=== PATIENT | male | born 1960 | race Caucasian/White ===

== ENCOUNTER 2022-02-21 18:18 | Inpatient (IN) | payer MEDICARE, MEDICAID ==
[~2022-02-21] VITALS: Ht 193 cm; Wt 116.0 kg
[2022-02-21 21:26] LABS: Eosinophils # (auto) 0 10 ^3/uL (0-0.8); Eosinophils % (auto) 0.3 % (0.0-7.0); Neutrophils # (auto) 11.5 10 ^3/uL (1.6-8.6)
[2022-02-21 21:27] LABS: Basophils # (auto) 0 10 ^3/uL (0-0.2); Basophils % (auto) 0.3 % (0.0-2.0); Hematocrit 39.1 % (41.0-53.0); Hemoglobin 12.7 g/dL (13.5-17.5); Lymphocytes # (auto) 0.8 10 ^3/uL (0.4-5.4); Lymphocytes % (auto) 6.3 % (10.0-50.0); Mean Corpuscular Hemoglobin 27.1 pg (28.0-32.0); Mean Corpuscular Hgb Conc. 32.4 g/dL (32.0-36.0); Mean Corpuscular Volume 83.5 fL (80.0-100.0); Monocytes % (auto) 7.1 % (0.0-12.0); Red Blood Cells 4.68 10^6/uL (4.5-5.90); Red Cell Distribution Width 15.6 % (11.8-14.3); White Blood Cell 13.4 10^3/uL (4.4-10.8)
[2022-02-21 21:41] LABS: Alanine Aminotransferase 56 U/L (16-61); Albumin 2.6 g/dL (3.4-5.0); Anion Gap 11 (5-15); Blood Urea Nitrogen 24 mg/dL (7-18); Calcium 8.7 mg/dL (8.5-10.1); Carbon Dioxide 20 mmol/L (21-32); Chloride 100 mmol/L (98-107); Glucose 79 mg/dL (74-106); Potassium 3.4 mmol/L (3.5-5.1); Sodium 131 mmol/L (136-145)
[2022-02-21 21:44] LABS: Alkaline Phosphatase 86 U/L (45-117); Aspartate Aminotransferase 112 U/L (15-37); Bilirubin, Total 0.5 mg/dL (0.2-1.0); GFR African American 52 mL/min; GFR Non-African American 43 mL/min; Total Protein 8.2 g/dL (6.4-8.2)
[2022-02-21 22:17] LABS: CRP High Sensitivity > 19 mg/dL (< 0.3)
[2022-02-22] MEDS ORDERED: HYDROmorphone HCL 2 MG/ML VL/or syr IV ONE (04:15)
[2022-02-22] MEDS ORDERED: ENOXAPARIN SOD 100 MG/1 ML SYRINGE SC SCH (05:00)
[2022-02-22] MEDS ORDERED: POTASSIUM CHL 20 Meq TABLET PO ONE (05:00)
[2022-02-22] MEDS ORDERED: ACETAMINOPHEN 325 MG TAB PO PRN (05:00)
[2022-02-22] MEDS ORDERED: ONDANSETRON HCL 4 MG/2 ML VIAL IV PRN (05:00)
[2022-02-22] MEDS ORDERED: HYDROcodone-ACET 5/325MG TAB PO PRN (05:00)
[2022-02-22] MEDS ORDERED: TEMAZEPAM 15 MG CAP PO PRN (05:00)
[2022-02-22] MEDS ORDERED: MORPHINE SULFATE INJ 2 MG/ml SYRG IV ONE (08:15)
[2022-02-22 08:24] LABS: Urine Bacteria FEW /hpf (None Seen); Urine Blood 3+ /uL (Negative); Urine Specific Gravity 1.011 (1.001-1.035); Urine WBC 4 /hpf (0 - 3)
[2022-02-22] MEDS: CLINDAMYCIN 600MG IV 50 ML IV SCH ×2 (10:55→18:46)
[2022-02-22] MEDS: cefTRIAXone 1GM/50ML D5W 50 ML IV SCH (13:10)
[2022-02-22 13:52] VITALS: BP 116/62
[2022-02-22] MEDS: HYDROcodone-ACET 10/325MG TAB PO PRN ×2 (14:05→21:08)
[2022-02-22] MEDS ORDERED: BICT1TAB PO (14:35)
[2022-02-22] MEDS ORDERED: RIVA20TA PO (14:35)
[2022-02-22] MEDS: HYDROmorphone HCL 2 MG/ML VL/or syr IV PRN (16:15)
[2022-02-22 16:59] VITALS: BP 102/58
[2022-02-22] MEDS: ENOXAPARIN SOD 120 MG/0.8 ML SYRINGE SC SCH (18:46)
[2022-02-22 22:00] VITALS: BP 101/52
[2022-02-23] MEDS: CLINDAMYCIN 600MG IV 50 ML IV SCH ×3 (01:50→17:33)
[2022-02-23 05:00] VITALS: BP_SYST 101; BP_SYST 114; BP_DIAS 50; BP_DIAS 69
[2022-02-23 05:19] LABS: Basophils # (auto) 0 10 ^3/uL (0-0.2); Basophils % (auto) 0.2 % (0.0-2.0); Eosinophils # (auto) 0 10 ^3/uL (0-0.8); Eosinophils % (auto) 0.3 % (0.0-7.0); Hematocrit 35.3 % (41.0-53.0); Hemoglobin 11.5 g/dL (13.5-17.5); Lymphocytes # (auto) 0.7 10 ^3/uL (0.4-5.4); Lymphocytes % (auto) 7.5 % (10.0-50.0); Mean Corpuscular Hemoglobin 27.3 pg (28.0-32.0); Mean Corpuscular Hgb Conc. 32.6 g/dL (32.0-36.0); Mean Corpuscular Volume 83.6 fL (80.0-100.0); Monocytes # (auto) 0.8 10 ^3/uL (0-1.3); Monocytes % (auto) 9.2 % (0.0-12.0); Neutrophils # (auto) 7.6 10 ^3/uL (1.6-8.6); Neutrophils % (auto) 82.8 % (37.0-80.0); Red Blood Cells 4.23 10^6/uL (4.5-5.90); Red Cell Distribution Width 15.7 % (11.8-14.3); White Blood Cell 9.1 10^3/uL (4.4-10.8)
[2022-02-23] MEDS: ENOXAPARIN SOD 120 MG/0.8 ML SYRINGE SC SCH ×2 (05:29→17:32)
[2022-02-23 05:46] LABS: Potassium 3.8 mmol/L (3.5-5.1)
[2022-02-23 05:51] LABS: Albumin 2.3 g/dL (3.4-5.0); BUN/Creatinine Ratio 14.8; Bilirubin, Total 0.5 mg/dL (0.2-1.0); Calcium 8.2 mg/dL (8.5-10.1); Total Protein 7.2 g/dL (6.4-8.2)
[2022-02-23] MEDS: HYDROcodone-ACET 10/325MG TAB PO PRN ×2 (08:31→16:14)
[2022-02-23] MEDS: cefTRIAXone 1GM/50ML D5W 50 ML IV SCH (08:31)
[2022-02-23 09:21] VITALS: BP 115/63
[2022-02-23 12:40] VITALS: BP 111/50
[2022-02-23 22:00] VITALS: BP 111/52
[2022-02-24] VITALS (7 sets, daily range): BP systolic 104–128; BP diastolic 59–77
[2022-02-24] MEDS: HYDROcodone-ACET 10/325MG TAB PO PRN ×2 (00:52→16:39)
[2022-02-24] MEDS: CLINDAMYCIN 600MG IV 50 ML IV SCH ×3 (04:21→18:37)
[2022-02-24] MEDS: ENOXAPARIN SOD 120 MG/0.8 ML SYRINGE SC SCH (04:48)
[2022-02-24] MEDS: HYDROmorphone HCL 2 MG/ML VL/or syr IV PRN ×3 (04:50→20:38)
[2022-02-24] MEDS: cefTRIAXone 1GM/50ML D5W 50 ML IV SCH (08:56)
[2022-02-24] MEDS: APIXABAN 5 MG TAB PO SCH (20:40)
[2022-02-25] MEDS: CLINDAMYCIN 600MG IV 50 ML IV SCH ×2 (01:29→10:54)
[2022-02-25] MEDS: HYDROcodone-ACET 10/325MG TAB PO PRN ×2 (01:51→16:38)
[2022-02-25] MEDS: HYDROmorphone HCL 2 MG/ML VL/or syr IV PRN ×3 (03:28→21:44)
[2022-02-25 05:00] VITALS: BP 110/53
[2022-02-25 08:00] VITALS: BP 128/86
[2022-02-25 09:00] VITALS: BP 124/67
[2022-02-25] MEDS: cefTRIAXone 1GM/50ML D5W 50 ML IV SCH (09:04)
[2022-02-25] MEDS: APIXABAN 5 MG TAB PO SCH ×2 (10:56→21:37)
[2022-02-25] MEDS ORDERED: VANCOMYCIN PER PHARMACY 0 MG IV SCH (11:15)
[2022-02-25 13:00] VITALS: BP_SYST 119; BP_SYST 123; BP_DIAS 61; BP_DIAS 73
[2022-02-25] MEDS: VANCOMYCIN 1GM/250ML 250 ML IV SCH ×2 (14:09→17:23)
[2022-02-25 17:00] VITALS: BP 106/57
[2022-02-25] MEDS ORDERED: VANCOMYCIN 1GM/250ML 250 ML IV ONE (17:32)
[2022-02-25 21:57] LABS: BUN/Creatinine Ratio 15.9; Calcium 8.3 mg/dL (8.5-10.1); Potassium 4.5 mmol/L (3.5-5.1)
[2022-02-25 22:00] VITALS: BP 114/57
[2022-02-26] MEDS: VANCOMYCIN 1GM/250ML 250 ML IV SCH ×3 (01:02→16:53)
[2022-02-26] MEDS: HYDROmorphone HCL 2 MG/ML VL/or syr IV PRN (04:45)
[2022-02-26 05:00] VITALS: BP 110/52
[2022-02-26 08:00] VITALS: BP 109/56
[2022-02-26 09:05] VITALS: BP 109/56
[2022-02-26] MEDS: HYDROcodone-ACET 10/325MG TAB PO PRN ×2 (09:59→20:23)
[2022-02-26] MEDS: APIXABAN 5 MG TAB PO SCH ×2 (10:00→21:20)
[2022-02-26] MEDS: CEFTRIAXONE SODIUM 2 GM in D5W 5% 50 ML IV SCH (11:37)
[2022-02-26 13:00] VITALS: BP 106/57
[2022-02-26 17:03] VITALS: BP 96/46
[2022-02-26 22:00] VITALS: BP 100/52
[2022-02-27] MEDS: VANCOMYCIN 1GM/250ML 250 ML IV SCH ×3 (02:28→22:43)
[2022-02-27] MEDS: HYDROcodone-ACET 10/325MG TAB PO PRN ×3 (03:31→16:34)
[2022-02-27 05:00] VITALS: BP 124/60
[2022-02-27 08:00] VITALS: BP 100/58
[2022-02-27 09:00] VITALS: BP 96/52
[2022-02-27] MEDS: APIXABAN 5 MG TAB PO SCH ×2 (09:14→21:19)
[2022-02-27] MEDS: CEFTRIAXONE SODIUM 2 GM in D5W 5% 50 ML IV SCH (09:15)
[2022-02-27 13:00] VITALS: BP 86/53
[2022-02-27 14:31] LABS: Albumin 1.9 g/dL (3.4-5.0); BUN/Creatinine Ratio 14.9; Calcium 8.6 mg/dL (8.5-10.1); Phosphorus 3.6 mg/dL (2.5-4.90); Potassium 4.6 mmol/L (3.5-5.1)
[2022-02-27 17:00] VITALS: BP 110/53
[2022-02-27 22:00] VITALS: BP 113/52
[2022-02-27] MEDS: HYDROmorphone HCL 2 MG/ML VL/or syr IV PRN (23:52)
[2022-02-28] MEDS: HYDROcodone-ACET 10/325MG TAB PO PRN ×2 (03:33→12:49)
[2022-02-28 05:00] VITALS: BP 105/52
[2022-02-28] MEDS: APIXABAN 5 MG TAB PO SCH ×2 (08:52→21:13)
[2022-02-28] MEDS: VANCOMYCIN 1GM/250ML 250 ML IV SCH ×2 (08:52→21:13)
[2022-02-28] MEDS: HYDROmorphone HCL 2 MG/ML VL/or syr IV PRN ×2 (08:53→19:55)
[2022-02-28 09:00] VITALS: BP 109/58
[2022-02-28] MEDS: CEFTRIAXONE SODIUM 2 GM in D5W 5% 50 ML IV SCH (10:04)
[2022-02-28 13:00] VITALS: BP 118/70
[2022-02-28 17:00] VITALS: BP 118/67
[2022-02-28 22:00] VITALS: BP 94/39
[2022-03-01 00:40] VITALS: BP 106/64
[2022-03-01] MEDS: HYDROcodone-ACET 10/325MG TAB PO PRN ×2 (00:46→19:35)
[2022-03-01 05:00] VITALS: BP 91/40
[2022-03-01 08:00] VITALS: BP 94/57
[2022-03-01] MEDS: APIXABAN 5 MG TAB PO SCH ×2 (09:17→21:34)
[2022-03-01] MEDS: VANCOMYCIN 1GM/250ML 250 ML IV SCH ×2 (09:17→21:34)
[2022-03-01] MEDS: HYDROmorphone HCL 2 MG/ML VL/or syr IV PRN ×2 (10:01→16:20)
[2022-03-01] MEDS ORDERED: FUROSEMIDE 40 MG/4 ML VIAL IV ONE (16:00)
[2022-03-01] MEDS ORDERED: POTASSIUM EFFERVESENT TAB 25 MEQ GT ONE (16:00)
[2022-03-01 17:00] VITALS: BP 110/59
[2022-03-01 22:00] VITALS: BP 115/59
[2022-03-02] MEDS: HYDROmorphone HCL 2 MG/ML VL/or syr IV PRN ×3 (03:13→20:21)
[2022-03-02 05:00] VITALS: BP_SYST 103; BP_DIAS 34; BP_DIAS 50
[2022-03-02] MEDS: HYDROcodone-ACET 10/325MG TAB PO PRN ×3 (05:27→23:57)
[2022-03-02 08:00] VITALS: BP 110/63
[2022-03-02] MEDS: VANCOMYCIN 1GM/250ML 250 ML IV SCH ×2 (08:36→20:21)
[2022-03-02] MEDS: APIXABAN 5 MG TAB PO SCH ×2 (08:37→21:51)
[2022-03-02 09:00] VITALS: BP 110/63
[2022-03-02] MEDS ORDERED: PENICILLIN V POTASSIUM 250 MG TAB PO SCH (12:00)
[2022-03-02 13:00] VITALS: BP 105/69
[2022-03-02] MEDS ORDERED: POTASSIUM CHL 20 Meq TABLET PO ONE (16:15)
[2022-03-02] MEDS ORDERED: FUROSEMIDE 40 MG/4 ML VIAL IV ONE (16:15)
[2022-03-02 17:00] VITALS: BP 113/61
[2022-03-02 22:00] VITALS: BP 123/66
[2022-03-03] MEDS: HYDROmorphone HCL 2 MG/ML VL/or syr IV PRN ×2 (03:40→12:09)
[2022-03-03 05:00] VITALS: BP 104/63
[2022-03-03] MEDS: HYDROcodone-ACET 10/325MG TAB PO PRN ×2 (08:22→18:21)
[2022-03-03 08:45] VITALS: BP 114/65
[2022-03-03] MEDS: VANCOMYCIN 1GM/250ML 250 ML IV SCH (09:02)
[2022-03-03 09:40] LABS: BUN/Creatinine Ratio 14.4; Calcium 8.6 mg/dL (8.5-10.1); Potassium 4.5 mmol/L (3.5-5.1)
[2022-03-03] MEDS: APIXABAN 5 MG TAB PO SCH (10:57)
[2022-03-03 12:55] VITALS: BP 110/62
[2022-03-03 16:30] VITALS: BP 108/64
[2022-03-03] MEDS ORDERED: APIXABAN 5 MG TAB PO SCH (22:00)
== END 2022-03-03 20:51 | DRG 299 ==
LOC: ER 18:18 → OVERFLOW 02-22 04:53 → WEST WING 02-22 13:31
PROVIDERS: ADMIT Nurse Practitioner; ATTEND Family Medicine
PROC: 05HF33Z Insertion of Infusion Device into Left Cephalic Vein, Percutaneous Approach (ICD-10-PCS; principal; 2022-03-03)
PROC: B54NZZA Ultrasonography of Left Upper Extremity Veins, Guidance (ICD-10-PCS; 2022-03-03)
DX: I82.402 Acute embolism and thrombosis of unspecified deep veins of left lower extremity (principal); E43 Unspecified severe protein-calorie malnutrition; N17.0 Acute kidney failure with tubular necrosis; L03.116 Cellulitis of left lower limb; E87.6 Hypokalemia; N18.9 Chronic kidney disease, unspecified; Z20.822 Contact with and (suspected) exposure to COVID-19; I12.9 Hypertensive chronic kidney disease with stage 1 through stage 4 chronic kidney disease, or unspecified chronic kidney disease; Z79.01 Long term (current) use of anticoagulants; Z68.31 Body mass index [BMI] 31.0-31.9, adult; Z21 Asymptomatic human immunodeficiency virus [HIV] infection status
CPT/HCPCS: 36415; 73610; 73700; 80048; 80053; 80069; 80202; 81001; 85025; 85652; 86141; 86360; 87040; 93971; 96372; 96374; 96375; G0378; J0696; J3490; J7060

== ENCOUNTER 2022-06-15 16:43 | Inpatient (IN) | payer MEDICARE, MEDICAID ==
[~2022-06-15] VITALS: Ht 193 cm; Wt 100.0 kg
[~2022-06-15 16:43] MED LIST: APIX5TAB PO; BICT1TAB PO; DOXY-340 PO; HYDR-4902 PO; RIVA20TA PO
[2022-06-15] MEDS ORDERED: levoFLOXacin 500MG 100 ML IV ONE (23:30)
[2022-06-16 00:08] LABS: Basophils # (auto) 0 10 ^3/uL (0-0.2)
[2022-06-16 00:10] LABS: Basophils % (auto) 0.4 % (0.0-2.0); Eosinophils # (auto) 0.3 10 ^3/uL (0-0.8); Eosinophils % (auto) 4.9 % (0.0-7.0); Hematocrit 35.6 % (41.0-53.0); Hemoglobin 11.7 g/dL (13.5-17.5); Lymphocytes # (auto) 0.9 10 ^3/uL (0.4-5.4); Lymphocytes % (auto) 17.3 % (10.0-50.0); Mean Corpuscular Hemoglobin 27.4 pg (28.0-32.0); Mean Corpuscular Hgb Conc. 32.9 g/dL (32.0-36.0); Mean Corpuscular Volume 83.1 fL (80.0-100.0); Monocytes # (auto) 0.5 10 ^3/uL (0-1.3); Monocytes % (auto) 9.3 % (0.0-12.0); Neutrophils # (auto) 3.5 10 ^3/uL (1.6-8.6); Neutrophils % (auto) 68.1 % (37.0-80.0); Red Blood Cells 4.28 10^6/uL (4.5-5.90); Red Cell Distribution Width 15.9 % (11.8-14.3); White Blood Cell 5.1 10^3/uL (4.4-10.8)
[2022-06-16 00:14] LABS: INR 1.07 (0.9-1.15); Partial Thromboplastin Time 29.2 sec (24.6-33.4)
[2022-06-16 00:17] LABS: Albumin 2.6 g/dL (3.4-5.0); BUN/Creatinine Ratio 12.7; Potassium 3.5 mmol/L (3.5-5.1)
[2022-06-16 00:20] LABS: Bilirubin, Total 0.3 mg/dL (0.2-1.0); Total Protein 8.1 g/dL (6.4-8.2)
[2022-06-16] MEDS ORDERED: ONDANSETRON HCL 4 MG/2 ML VIAL IV ONE (02:15)
[2022-06-16] MEDS ORDERED: MORPHINE SULFATE 4 MG/ML SYR/VIAL IV ONE ×2 (02:15→05:00)
[2022-06-16] MEDS ORDERED: ceFAZolin 1GM/50ML 50 ML IV ONE (05:00)
[2022-06-16] MEDS ORDERED: ACETAMINOPHEN 325 MG TAB PO PRN (06:00)
[2022-06-16] MEDS ORDERED: TEMAZEPAM 15 MG CAP PO PRN (06:00)
[2022-06-16] MEDS ORDERED: ONDANSETRON HCL 4 MG/2 ML VIAL IV PRN (06:00)
[2022-06-16] MEDS: CLINDAMYCIN 600MG IV 50 ML IV SCH ×3 (06:18→21:36)
[2022-06-16] MEDS ORDERED: EMTRICITABINE PO SCH (10:00)
[2022-06-16] MEDS ORDERED: BICTEGRAVIR PO SCH (10:00)
[2022-06-16] MEDS ORDERED: APIXABAN 2.5 MG TAB PO SCH (10:00)
[2022-06-16] MEDS: BIKTARVY 50-200-25 MG PO SCH (10:00)
[2022-06-16] MEDS ORDERED: TENOFOVIR ALAFENAMIDE PO SCH (10:00)
[2022-06-16] MEDS: cefTRIAXone 1GM/50ML D5W 50 ML IV SCH (11:29)
[2022-06-16] MEDS: PANTOPRAZOLE 40 MG TAB PO SCH (11:32)
[2022-06-16 17:00] VITALS: BP 104/62
[2022-06-16] MEDS: HYDROcodone-ACET 5/325MG TAB PO PRN ×2 (17:40→23:27)
[2022-06-16] MEDS ORDERED: INFLUENZA QUAD 2022-2023 0.5 ML SYRG IM ONE (18:45)
[2022-06-16 22:00] VITALS: BP 98/55
[2022-06-17 05:00] VITALS: BP 104/57
[2022-06-17] MEDS: CLINDAMYCIN 600MG IV 50 ML IV SCH ×2 (05:37→14:10)
[2022-06-17 06:08] LABS: Basophils # (auto) 0 10 ^3/uL (0-0.2); Basophils % (auto) 0.7 % (0.0-2.0); Eosinophils # (auto) 0.4 10 ^3/uL (0-0.8); Eosinophils % (auto) 8.2 % (0.0-7.0); Hematocrit 34.9 % (41.0-53.0); Hemoglobin 11.3 g/dL (13.5-17.5); Lymphocytes # (auto) 0.5 10 ^3/uL (0.4-5.4); Lymphocytes % (auto) 10.8 % (10.0-50.0); Mean Corpuscular Hgb Conc. 32.4 g/dL (32.0-36.0); Mean Corpuscular Volume 83.4 fL (80.0-100.0); Monocytes # (auto) 0.5 10 ^3/uL (0-1.3); Monocytes % (auto) 10.6 % (0.0-12.0); Neutrophils # (auto) 3.5 10 ^3/uL (1.6-8.6); Neutrophils % (auto) 69.7 % (37.0-80.0); Nucleated Red Blood Cells % 0.2 %; Red Blood Cells 4.18 10^6/uL (4.5-5.90); Red Cell Distribution Width 16.3 % (11.8-14.3); White Blood Cell 5.1 10^3/uL (4.4-10.8)
[2022-06-17 06:35] LABS: BUN/Creatinine Ratio 9.5; Calcium 8.1 mg/dL (8.5-10.1); Potassium 4.8 mmol/L (3.5-5.1)
[2022-06-17 08:00] VITALS: BP 103/52
[2022-06-17] MEDS: BIKTARVY 50-200-25 MG PO SCH (10:00)
[2022-06-17] MEDS: cefTRIAXone 1GM/50ML D5W 50 ML IV SCH (10:16)
[2022-06-17] MEDS: PANTOPRAZOLE 40 MG TAB PO SCH (10:16)
[2022-06-17] MEDS: HYDROcodone-ACET 5/325MG TAB PO PRN ×2 (10:25→19:17)
[2022-06-17] MEDS ORDERED: APIXABAN 2.5 MG TAB PO SCH (14:30)
[2022-06-17 16:00] VITALS: BP 98/55
[2022-06-17 22:00] VITALS: BP 103/59
[2022-06-18] MEDS: HYDROcodone-ACET 5/325MG TAB PO PRN ×2 (04:36→10:12)
[2022-06-18 05:00] VITALS: BP 114/57
[2022-06-18 08:59] VITALS: BP 90/53
[2022-06-18] MEDS: ENOXAPARIN SOD 40 MG/0.4 ML SYRINGE SC SCH (09:53)
[2022-06-18] MEDS: cefTRIAXone 1GM/50ML D5W 50 ML IV SCH (09:53)
[2022-06-18] MEDS: PANTOPRAZOLE 40 MG TAB PO SCH (09:54)
[2022-06-18] MEDS: BIKTARVY 50-200-25 MG PO SCH (09:56)
[2022-06-18 13:00] VITALS: BP 120/65
[2022-06-18 16:57] VITALS: BP 119/62
[2022-06-19] MEDS: cefTRIAXone 1GM/50ML D5W 50 ML IV SCH (08:47)
[2022-06-19] MEDS: PANTOPRAZOLE 40 MG TAB PO SCH (08:48)
[2022-06-19] MEDS: HYDROcodone-ACET 5/325MG TAB PO PRN ×2 (08:48→16:49)
[2022-06-19] MEDS: ENOXAPARIN SOD 40 MG/0.4 ML SYRINGE SC SCH (08:48)
[2022-06-19] MEDS: BIKTARVY 50-200-25 MG PO SCH (08:54)
[2022-06-19 09:00] VITALS: BP 101/59
[2022-06-19 13:00] VITALS: BP 96/52
[2022-06-19 17:00] VITALS: BP 101/66
[2022-06-19 22:00] VITALS: BP 93/63
[2022-06-20 05:00] VITALS: BP 116/62
[2022-06-20 08:49] LABS: Red Cell Distribution Width 15.9 % (11.8-14.3)
[2022-06-20 08:51] LABS: Hematocrit 39.8 % (41.0-53.0); Hemoglobin 12.8 g/dL (13.5-17.5); Mean Corpuscular Hemoglobin 26.7 pg (28.0-32.0); Mean Corpuscular Hgb Conc. 32.1 g/dL (32.0-36.0); Mean Corpuscular Volume 83.2 fL (80.0-100.0); Red Blood Cells 4.78 10^6/uL (4.5-5.90)
[2022-06-20 08:56] LABS: Band Neutrophils % (manual) 0; Basophils % (manual) 0 (0.0-2.0); Blast Cells 0; Metamyelocytes % 0; Myelocytes % 0; Promyelocytes % 0; Reactive Lymphocytes 0
[2022-06-20 09:00] VITALS: BP 109/51
[2022-06-20 09:11] LABS: Eosinophils % (manual) 17 (0-7); Lymphocytes % (manual) 25 (10.0-50.0); Monocytes % (manual) 5 (0-12)
[2022-06-20] MEDS: BIKTARVY 50-200-25 MG PO SCH (09:22)
[2022-06-20] MEDS: cefTRIAXone 1GM/50ML D5W 50 ML IV SCH (09:22)
[2022-06-20] MEDS: PANTOPRAZOLE 40 MG TAB PO SCH (09:23)
[2022-06-20] MEDS: ENOXAPARIN SOD 40 MG/0.4 ML SYRINGE SC SCH (09:23)
[2022-06-20] MEDS: ceFAZolin 1GM/50ML 50 ML IV SCH ×2 (14:38→21:28)
[2022-06-20 17:00] VITALS: BP 104/58
[2022-06-20 22:00] VITALS: BP 102/61
[2022-06-20] MEDS ORDERED: diphenhdrAMINE HCL 25 MG CAP PO ONE (22:15)
[2022-06-21 05:00] VITALS: BP 96/67
[2022-06-21] MEDS: ceFAZolin 1GM/50ML 50 ML IV SCH ×2 (05:06→14:00)
[2022-06-21 06:41] LABS: Hematocrit 42.1 % (41.0-53.0); Mean Corpuscular Hemoglobin 27.4 pg (28.0-32.0); Mean Corpuscular Hgb Conc. 30.9 g/dL (32.0-36.0); Mean Corpuscular Volume 88.7 fL (80.0-100.0); Red Blood Cells 4.74 10^6/uL (4.5-5.90); Red Cell Distribution Width 15.6 % (11.8-14.3); White Blood Cell 4.3 10^3/uL (4.4-10.8)
[2022-06-21 07:09] LABS: Basophils % (manual) 0 (0.0-2.0); Blast Cells 0; Metamyelocytes % 0; Myelocytes % 0; Promyelocytes % 0; Reactive Lymphocytes 0
[2022-06-21 08:49] VITALS: BP 93/57
[2022-06-21 09:52] LABS: Band Neutrophils % (manual) 12; Eosinophils % (manual) 23 (0-7); Lymphocytes % (manual) 18 (10.0-50.0); Monocytes % (manual) 8 (0-12)
[2022-06-21] MEDS: BIKTARVY 50-200-25 MG PO SCH (10:00)
[2022-06-21] MEDS: PANTOPRAZOLE 40 MG TAB PO SCH (10:30)
[2022-06-21] MEDS: ENOXAPARIN SOD 40 MG/0.4 ML SYRINGE SC SCH (10:30)
[2022-06-21] MEDS ORDERED: CEPH500C PO (12:05)
[2022-06-21] MEDS ORDERED: [UNRECOGNIZED DRUG - CODE] EX (12:14)
[2022-06-21 13:00] VITALS: BP 95/48
== END 2022-06-21 16:32 | disposition home or self-care (01) | DRG 603 ==
LOC: ER 16:43 → OVERFLOW 06-16 06:06 → CENTRAL 06-16 15:43
PROVIDERS: ADMIT Nurse Practitioner; ATTEND Student in an Organized Health Care Education/Training Program
DX: L03.116 Cellulitis of left lower limb (principal); B20 Human immunodeficiency virus [HIV] disease; N18.4 Chronic kidney disease, stage 4 (severe); Z20.822 Contact with and (suspected) exposure to COVID-19; I87.8 Other specified disorders of veins; Z63.8 Other specified problems related to primary support group; Z86.718 Personal history of other venous thrombosis and embolism
CPT/HCPCS: 36415; 71045; 80048; 80053; 85007; 85025; 85027; 85610; 85730; 87040; 87426; 87493; 93005; 93971; 96365; 96367; 96375; 96376; G0378; J0690; J0696; J1956; J2405; J3490

== ENCOUNTER 2024-02-28 21:24 | Inpatient (IN) | payer OTHER, MEDICAID ==
[~2024-02-28] VITALS: Ht 193 cm; Wt 94.0 kg
[~2024-02-28 21:24] MED LIST changes: +CEPH500C PO; -DOXY-340 PO; -RIVA20TA PO; +[UNRECOGNIZED DRUG - CODE] EX
[2024-02-28 22:04] LABS: Basophils # (auto) 0 10 ^3/uL (0-0.2); Basophils % (auto) 1.1 % (0.0-2.0); Eosinophils # (auto) 0.3 10 ^3/uL (0-0.8); Eosinophils % (auto) 10.8 % (0.0-7.0); Hematocrit 32.2 % (41.0-53.0); Hemoglobin 10.7 g/dL (13.5-17.5); Lymphocytes # (auto) 0.4 10 ^3/uL (0.4-5.4); Mean Corpuscular Hemoglobin 27.8 pg (28.0-32.0); Mean Corpuscular Hgb Conc. 33.2 g/dL (32.0-36.0); Mean Corpuscular Volume 83.6 fL (80.0-100.0); Monocytes # (auto) 0.4 10 ^3/uL (0-1.3); Monocytes % (auto) 14.5 % (0.0-12.0); Neutrophils # (auto) 1.7 10 ^3/uL (1.6-8.6); Neutrophils % (auto) 58.6 % (37.0-80.0); Nucleated Red Blood Cells % 0.1 %; Red Blood Cells 3.86 10^6/uL (4.5-5.90); Red Cell Distribution Width 16.6 % (11.8-14.3); White Blood Cell 2.9 10^3/uL (4.4-10.8)
[2024-02-28 22:22] LABS: Alanine Aminotransferase 31 U/L (7-40); Albumin 3.2 g/dL (3.2-4.8); Alkaline Phosphatase 85 U/L (46-116); Anion Gap 11 (5-15); Aspartate Aminotransferase 41 U/L (13-40); BUN/Creatinine Ratio 10.8 (10.0-20.0); Blood Urea Nitrogen 15 mg/dL (9-23); Calcium 8.8 mg/dL (8.7-10.4); Carbon Dioxide 20 mmol/L (20-30); Chloride 102 mmol/L (98-107); Glucose 117 mg/dL (74-106); Potassium 3.7 mmol/L (3.5-5.1); Sodium 133 mmol/L (136-145)
[2024-02-28 22:23] LABS: Bilirubin, Total 0.6 mg/dL (0.2-1.0); Total Protein 9.4 g/dL (5.7-8.2)
[2024-02-28] MEDS: SODIUM CHLORIDE 0.9% 1,000 ML IV ONE (23:09)
[2024-02-28 23:30] VITALS: PULSE 100; RESP 24; O2SAT 99
[2024-02-29] MEDS: KETOROLAC TROMETH 30 MG/ML 1ML VIAL IV ONE (03:32)
[2024-02-29] MEDS ORDERED: ONDANSETRON HCL 4 MG/2 ML VIAL IV PRN (03:45)
[2024-02-29] MEDS ORDERED: ACETAMINOPHEN 325 MG TAB PO PRN (03:45)
[2024-02-29] MEDS ORDERED: DOCUSATE SOD 100 MG CAP PO PRN (03:45)
[2024-02-29] MEDS ORDERED: NITROGLYCERIN 0.4 MG SL TAB SL PRN (03:45)
[2024-02-29] MEDS ORDERED: MORPHINE SULFATE INJ 2 MG/ml SYRG IV PRN (03:45)
[2024-02-29] MEDS: HYDROcodone-ACET 5/325MG TAB PO PRN (03:51)
[2024-02-29] MEDS: SODIUM CHLORIDE 0.9% 1,000 ML IV SCH (03:52)
[2024-02-29 04:31] LABS: Chloride 105 mmol/L (98-107); Potassium 3.7 mmol/L (3.5-5.1); Sodium 135 mmol/L (136-145)
[2024-02-29 04:32] LABS: Anion Gap 7 (5-15); Calcium 8.3 mg/dL (8.7-10.4); Carbon Dioxide 23 mmol/L (20-30)
[2024-02-29 04:37] LABS: BUN/Creatinine Ratio 11.3 (10.0-20.0); Blood Urea Nitrogen 14 mg/dL (9-23); Glucose 98 mg/dL (74-106)
[2024-02-29 04:41] LABS: Hematocrit 29.1 % (41.0-53.0); Hemoglobin 9.6 g/dL (13.5-17.5); Mean Corpuscular Hemoglobin 27.9 pg (28.0-32.0); Mean Corpuscular Volume 84.5 fL (80.0-100.0); Red Blood Cells 3.44 10^6/uL (4.5-5.90); Red Cell Distribution Width 16.6 % (11.8-14.3); White Blood Cell 3.5 10^3/uL (4.4-10.8)
[2024-02-29 04:43] LABS: Basophils % (manual) 0 (0.0-2.0); Blast Cells 0; Metamyelocytes % 0; Myelocytes % 0; Promyelocytes % 0; Reactive Lymphocytes 0
[2024-02-29 07:30] VITALS: PULSE 95; RESP 21; O2SAT 98
[2024-02-29 07:46] LABS: Band Neutrophils % (manual) 1; Eosinophils % (manual) 4 (0-7); Lymphocytes % (manual) 8 (10.0-50.0); Monocytes % (manual) 7 (0-12)
[2024-02-29 07:47] LABS: Large Platelets FEW; Platelet Estimate Decrea
[2024-02-29 16:44] VITALS: BP 106/74; PULSE 91; RESP 17; TEMP 97.7; O2SAT 100
[2024-02-29 16:46] VITALS: PULSE 91; RESP 18
[2024-02-29 20:00] VITALS: PULSE 100; PULSE 80; RESP 18; O2SAT 99
[2024-02-29 21:00] VITALS: BP 102/64; PULSE 80; RESP 18; TEMP 97.5; O2SAT 99
[2024-03-01] VITALS (9 sets, daily range): BP systolic 106–128; BP diastolic 68–86; PULSE 70–99; RESP 15–22; TEMP 97.2–98.1; O2SAT 93–100
[2024-03-01 06:48] LABS: Anion Gap 8 (5-15); Calcium 8.6 mg/dL (8.7-10.4); Carbon Dioxide 20 mmol/L (20-30); Chloride 108 mmol/L (98-107); Sodium 136 mmol/L (136-145)
[2024-03-01 06:54] LABS: BUN/Creatinine Ratio 9.6 (10.0-20.0); Blood Urea Nitrogen 10 mg/dL (9-23); Glucose 102 mg/dL (74-106); Mean Corpuscular Hemoglobin 34.9 pg (28.0-32.0); Red Cell Distribution Width 17.4 % (11.8-14.3)
[2024-03-01 06:56] LABS: Hematocrit 31.4 % (41.0-53.0); Mean Corpuscular Hgb Conc. 35.1 g/dL (32.0-36.0); Mean Corpuscular Volume 99.3 fL (80.0-100.0); Red Blood Cells 3.16 10^6/uL (4.5-5.90); White Blood Cell 3.2 10^3/uL (4.4-10.8)
[2024-03-01 07:05] LABS: Basophils % (manual) 0 (0.0-2.0); Blast Cells 0; Metamyelocytes % 0; Myelocytes % 0; Promyelocytes % 0; Reactive Lymphocytes 0
[2024-03-01 08:25] LABS: Band Neutrophils % (manual) 2; Eosinophils % (manual) 19 (0-7); Lymphocytes % (manual) 12 (10.0-50.0); Monocytes % (manual) 7 (0-12); Platelet Estimate Decreased
[2024-03-01] MEDS: cefTRIAXone 1GM/50ML D5W 50 ML IV SCH (14:51)
[2024-03-01 16:40] LABS: Amphetamine Screen, Urine Pos (NEGATIVE); Barbiturate Scree,Urine Neg (NEGATIVE); Benzodiazephine Screen, Urine Neg (NEGATIVE); Cannabinoid Screen, Urine Neg (NEGATIVE); Cocaine Screen, Urine Neg (NEGATIVE); Opiate Scree,Urine Neg (NEGATIVE); Phencyclidine Screen, Urine Neg (NEGATIVE)
[2024-03-01 16:45] LABS: INR 1.13 (0.9-1.15); Prothrombin Time 11.9 sec (9.3-11.8)
[2024-03-01 16:56] LABS: Urine Bacteria FEW /hpf (None Seen); Urine Blood 2+ /uL (Negative); Urine Clarity Turbid (Clear); Urine Color Yellow (Yellow); Urine Protein, UAD TRACE (Negative); Urine Specific Gravity 1.013 (1.001-1.035); Urine Urobilinogen 2 mg/dL (Negative); Urine WBC 230 /hpf (0 - 3)
[2024-03-02] VITALS (8 sets, daily range): BP systolic 118–134; BP diastolic 73–89; PULSE 76–92; RESP 17–22; TEMP 97.4–98; O2SAT 94–100
[2024-03-02 07:47] LABS: Anion Gap 6 (5-15); Carbon Dioxide 25 mmol/L (20-30); Chloride 106 mmol/L (98-107); Potassium 4.2 mmol/L (3.5-5.1); Sodium 137 mmol/L (136-145)
[2024-03-02 07:48] LABS: Calcium 8.6 mg/dL (8.7-10.4)
[2024-03-02 07:53] LABS: BUN/Creatinine Ratio 7.3 (10.0-20.0); Blood Urea Nitrogen 7 mg/dL (9-23); Glucose 85 mg/dL (74-106)
[2024-03-02 07:54] LABS: Magnesium 1.7 mg/dL (1.6-2.6)
[2024-03-02 08:07] LABS: Hemoglobin 10.2 g/dL (13.5-17.5); Mean Corpuscular Hemoglobin 28.6 pg (28.0-32.0); Mean Corpuscular Volume 84.3 fL (80.0-100.0); Red Blood Cells 3.56 10^6/uL (4.5-5.90); Red Cell Distribution Width 16.8 % (11.8-14.3); White Blood Cell 3.5 10^3/uL (4.4-10.8)
[2024-03-02 08:11] LABS: Basophils % (manual) 0 (0.0-2.0); Blast Cells 0; Metamyelocytes % 0; Myelocytes % 0; Promyelocytes % 0; Reactive Lymphocytes 0
[2024-03-02] MEDS: PANTOPRAZOLE 40 MG/10 ML VIAL INJ IV SCH (10:00)
[2024-03-02 10:41] LABS: Band Neutrophils % (manual) 2; Eosinophils % (manual) 10 (0-7); Lymphocytes % (manual) 8 (10.0-50.0); Monocytes % (manual) 6 (0-12); Platelet Estimate Decreased
[2024-03-02] MEDS ORDERED: LIDOCAINE 1% INJ PF 5ML AMP ONE (12:17)
[2024-03-02] MEDS ORDERED: PROPOFOL 10 MG/ML 20 ML IV ONE ×2 (12:17→12:34)
[2024-03-02] MEDS ORDERED: EPINEPHrine HCL 1 MG/10 ML SYRG ONE (12:20)
[2024-03-02] MEDS ORDERED: ONDANSETRON HCL 4 MG/2 ML VIAL IV ONE (12:45)
[2024-03-02] MEDS ORDERED: HYDROmorphone HCL 2 MG/ML VL/or syr IV PRN (12:45)
[2024-03-03 01:00] VITALS: BP 125/77; PULSE 85; RESP 18; TEMP 97.6; O2SAT 95
[2024-03-03 05:00] VITALS: BP 100/59; PULSE 102; RESP 19; TEMP 98; O2SAT 95
[2024-03-03 08:10] VITALS: PULSE 84
[2024-03-03 08:53] LABS: Basophils # (auto) 0 10 ^3/uL (0-0.2); Basophils % (auto) 0.8 % (0.0-2.0); Eosinophils # (auto) 0.3 10 ^3/uL (0-0.8); Eosinophils % (auto) 10.9 % (0.0-7.0); Hematocrit 31.2 % (41.0-53.0); Hemoglobin 10.1 g/dL (13.5-17.5); Lymphocytes # (auto) 0.3 10 ^3/uL (0.4-5.4); Lymphocytes % (auto) 14.7 % (10.0-50.0); Mean Corpuscular Hemoglobin 28.2 pg (28.0-32.0); Mean Corpuscular Hgb Conc. 32.4 g/dL (32.0-36.0); Monocytes # (auto) 0.2 10 ^3/uL (0-1.3); Monocytes % (auto) 9.6 % (0.0-12.0); Neutrophils # (auto) 1.5 10 ^3/uL (1.6-8.6); Nucleated Red Blood Cells % 0.2 %; Red Blood Cells 3.59 10^6/uL (4.5-5.90); Red Cell Distribution Width 17.2 % (11.8-14.3); White Blood Cell 2.3 10^3/uL (4.4-10.8)
[2024-03-03 09:00] VITALS: BP 120/65; PULSE 90; RESP 20; TEMP 97.7; O2SAT 95
[2024-03-03 09:09] LABS: Chloride 109 mmol/L (98-107); Potassium 3.8 mmol/L (3.5-5.1); Sodium 137 mmol/L (136-145)
[2024-03-03 09:10] LABS: Anion Gap 6 (5-15); Carbon Dioxide 22 mmol/L (20-30)
[2024-03-03 09:11] LABS: Calcium 8.2 mg/dL (8.7-10.4)
[2024-03-03 09:15] LABS: BUN/Creatinine Ratio 5.3 (10.0-20.0); Blood Urea Nitrogen 5 mg/dL (9-23); Glucose 90 mg/dL (74-106)
[2024-03-03 13:00] VITALS: BP 105/60; PULSE 92; RESP 20; TEMP 97.9; O2SAT 98
== END 2024-03-03 17:15 | DRG 391 ==
LOC: EDBD 21:24 → EDUNIT# 21:24 → ER 21:24 → TELE 02-29 03:41 → TELE-EAST 02-29 16:27
PROVIDERS: ADMIT Nurse Practitioner Family; ATTEND Internal Medicine
PROC: 0DB68ZX Excision of Stomach, Via Natural or Artificial Opening Endoscopic, Diagnostic (ICD-10-PCS; 2024-03-02)
PROC: 0DB98ZX Excision of Duodenum, Via Natural or Artificial Opening Endoscopic, Diagnostic (ICD-10-PCS; principal; 2024-03-02 12:18)
DX: K29.70 Gastritis, unspecified, without bleeding (principal); N17.0 Acute kidney failure with tubular necrosis; K92.1 Melena; D61.818 Other pancytopenia; E86.0 Dehydration; K57.10 Diverticulosis of small intestine without perforation or abscess without bleeding; R59.1 Generalized enlarged lymph nodes; K22.2 Esophageal obstruction; R55 Syncope and collapse
CPT/HCPCS: 36415; 70450; 70551; 71045; 72128; 76705; 80048; 80053; 80307; 81001; 82270; 83735; 84484; 85007; 85025; 85027; 85610; 86850; 86900; 86901; 93005; 93306; 97110; 97116; 97163; 97530; G0378; J1885; J2470; J2704

== ENCOUNTER 2024-03-27 06:57 | Inpatient (IN) | payer OTHER, MEDICAID ==
[~2024-03-27] VITALS: Ht 193 cm; Wt 92.3 kg
[~2024-03-27 06:57] MED LIST changes: -APIX5TAB PO; -CEPH500C PO; -HYDR-4902 PO; -[UNRECOGNIZED DRUG - CODE] EX
[2024-03-27 07:30] VITALS: BP 103/62; PULSE 87; RESP 19; TEMP 98.3; O2SAT 97
[2024-03-27] MEDS ORDERED: INFLUENZA QUAD 2023-2024 0.5 ML SYRG IM ONE (08:00)
[2024-03-27] MEDS ORDERED: PNEUMOCOCCAL VACC POLYS 25 MCG/0.5 ML VIAL IM ONE (08:00)
[2024-03-27] MEDS ORDERED: PANT40T PO (08:01)
[2024-03-27] MEDS ORDERED: POLY335015 PO (08:01)
[2024-03-27] MEDS ORDERED: HYD1TP TOP (08:01)
[2024-03-27] MEDS ORDERED: DOXY100T2 PO (08:01)
[2024-03-27] MEDS ORDERED: BICT1TAB PO (08:01)
[2024-03-27] MEDS ORDERED: HYDR1TAB97 PO (08:03)
[2024-03-27] MEDS ORDERED: HYDR-4902 PO (08:03)
[2024-03-27 09:00] VITALS: BP 103/62; PULSE 87; RESP 19; TEMP 98.3; O2SAT 97
[2024-03-27 12:58] VITALS: BP 115/71; PULSE 87; RESP 19; TEMP 98.4; O2SAT 99
[2024-03-27] MEDS ORDERED: MORPHINE SULFATE INJ 2 MG/ml SYRG IV PRN ×2 (16:15)
[2024-03-27] MEDS ORDERED: NITROGLYCERIN 0.4 MG SL TAB SL PRN (16:15)
[2024-03-27] MEDS ORDERED: ONDANSETRON HCL 4 MG/2 ML VIAL IV PRN (16:15)
[2024-03-27 16:56] VITALS: BP 107/71; PULSE 89; RESP 16; TEMP 97.9; O2SAT 98
[2024-03-27] MEDS: SODIUM CHLORIDE 0.9% 1,000 ML IV SCH (17:56)
[2024-03-27 20:00] VITALS: PULSE 95; RESP 18; O2SAT 98
[2024-03-28] VITALS (7 sets, daily range): BP systolic 98–122; BP diastolic 62–81; PULSE 75–88; RESP 17–22; TEMP 97.4–98.4; O2SAT 98–99
[2024-03-28 16:09] LABS: Mean Corpuscular Hemoglobin 30.3 pg (28.0-32.0); Mean Corpuscular Hgb Conc. 33.3 g/dL (32.0-36.0); Mean Corpuscular Volume 90.8 fL (80.0-100.0); Red Blood Cells 2.97 10^6/uL (4.5-5.90); Red Cell Distribution Width 20.3 % (11.8-14.3)
[2024-03-28 16:12] LABS: White Blood Cell 1.9 10^3/uL (4.4-10.8)
[2024-03-28 16:13] LABS: Band Neutrophils % (manual) 0; Basophils % (manual) 0 (0.0-2.0); Blast Cells 0; Metamyelocytes % 0; Myelocytes % 0; Promyelocytes % 0; Reactive Lymphocytes 0
[2024-03-28 16:27] LABS: Chloride 109 mmol/L (98-107); Sodium 138 mmol/L (136-145)
[2024-03-28 16:28] LABS: Anion Gap 6 (5-15); Carbon Dioxide 23 mmol/L (20-30)
[2024-03-28 16:29] LABS: Calcium 8.2 mg/dL (8.7-10.4)
[2024-03-28 16:33] LABS: BUN/Creatinine Ratio 10.9 (10.0-20.0); Blood Urea Nitrogen 11 mg/dL (9-23); Glucose 92 mg/dL (74-106)
[2024-03-28 16:55] LABS: Platelet Count (auto) 102 10^3/uL (140-450)
[2024-03-28 16:56] LABS: Anisocytosis Slight; Eosinophils % (manual) 7 (0-7); Large Platelets FEW; Lymphocytes % (manual) 34 (10.0-50.0); Monocytes % (manual) 12 (0-12); Platelet Estimate Decreased
[2024-03-29] VITALS (8 sets, daily range): BP systolic 120–134; BP diastolic 60–83; PULSE 70–90; RESP 12–22; TEMP 97.4–98.9; O2SAT 95–99
[2024-03-29 09:35] LABS: Hemoglobin 8.9 g/dL (13.5-17.5)
[2024-03-29 09:37] LABS: Hematocrit 26.6 % (41.0-53.0); Mean Corpuscular Hgb Conc. 33.5 g/dL (32.0-36.0); Mean Corpuscular Volume 92.6 fL (80.0-100.0); Platelet Count (auto) 102 10^3/uL (140-450); Red Blood Cells 2.87 10^6/uL (4.5-5.90); Red Cell Distribution Width 19.1 % (11.8-14.3)
[2024-03-29 09:53] LABS: Chloride 109 mmol/L (98-107); Potassium 3.4 mmol/L (3.5-5.1); Sodium 137 mmol/L (136-145)
[2024-03-29 09:54] LABS: Anion Gap 2 (5-15); Calcium 8.4 mg/dL (8.7-10.4); Carbon Dioxide 26 mmol/L (20-30)
[2024-03-29 09:59] LABS: BUN/Creatinine Ratio 8.1 (10.0-20.0); Blood Urea Nitrogen 8 mg/dL (9-23); Glucose 90 mg/dL (74-106)
[2024-03-29 10:00] LABS: Magnesium 1.5 mg/dL (1.6-2.6)
[2024-03-29 10:19] LABS: White Blood Cell 1.7 10^3/uL (4.4-10.8)
[2024-03-29 10:21] LABS: Band Neutrophils % (manual) 0; Basophils % (manual) 0 (0.0-2.0); Myelocytes % 0; Promyelocytes % 0; Reactive Lymphocytes 0
[2024-03-29 12:23] LABS: Blast Cells 2; Eosinophils % (manual) 14 (0-7); Lymphocytes % (manual) 30 (10.0-50.0); Metamyelocytes % 2; Monocytes % (manual) 12 (0-12)
[2024-03-29 12:24] LABS: Platelet Estimate Decreased
[2024-03-29] MEDS ORDERED: EZ PAQUE SUSP 12OZ BTL ONE (13:17)
[2024-03-29] MEDS ORDERED: EZ-GAS II GRANULES (RADIOLOGY USE) PO ONE (13:18)
[2024-03-29] MEDS ORDERED: BARIUM SULFATE 98% 340 GM PWDR ONE (13:18)
[2024-03-29] MEDS ORDERED: GASTROGRAFIN 120 ML SOL ONE (13:19)
[2024-03-29 15:41] LABS: INR 1.16 (0.9-1.15); Partial Thromboplastin Time 29.6 SEC (24.5-34.5); Prothrombin Time 12.2 sec (9.3-11.8)
[2024-03-29 15:52] LABS: Albumin 3.2 g/dL (3.2-4.8); Bilirubin, Direct 0.2 mg/dL (<0.3); Bilirubin, Total 0.4 mg/dL (0.2-1.0); Total Protein 9.7 g/dL (5.7-8.2)
[2024-03-29] MEDS: POTASSIUM CHL 20 Meq TABLET PO ONE (21:53)
[2024-03-29 22:04] LABS: Urine Bacteria None Seen /hpf (None Seen)
[2024-03-29 22:07] LABS: Urine Blood Negative /uL (Negative); Urine Clarity Clear (Clear); Urine Color Light-Yellow (Yellow); Urine Protein, UAD Negative (Negative); Urine Specific Gravity 1.018 (1.001-1.035); Urine Urobilinogen Normal (Negative); Urine WBC 1 /hpf (0 - 3)
[2024-03-30] VITALS (7 sets, daily range): BP systolic 93–143; BP diastolic 55–80; PULSE 77–98; RESP 16–20; TEMP 97.4–98.6; O2SAT 90–98
[2024-03-30 10:07] LABS: % CD 4 Pos Lymph 4.4 % (30.8-58.5); % CD 8 Pos Lymph 39.4 % (12.0-35.5); CD4/CD8 Ratio 0.11 (0.92-3.72)
[2024-03-30 11:07] LABS: Absolute CD 4 Helper 18 /uL (359-1519); Basos 1 % (Not Estab.); Eos 15 % (Not Estab.); Eos (Absolute) 0.3 x10E3/uL (0.0-0.4); Hematocrit 26.9 % (37.5-51.0); Hematology Comments: Note: (.); Hemoglobin 8.4 g/dL (13.0-17.7); Immature Cells Note (.); Lymphs 21 % (Not Estab.); Lymphs (Absolute) 0.4 x10E3/uL (0.7-3.1); MCH 27.9 pg (26.6-33.0); MCHC 31.2 g/dL (31.5-35.7); MCV 89 fL (79-97); Monocytes 14 % (Not Estab.); Monocytes (Absolute) 0.3 x10E3/uL (0.1-0.9); Neutrophils 47 % (Not Estab.); RBC 3.01 x10E6/uL (4.14-5.80); WBC 2.1 x10E3/uL (3.4-10.8)
[2024-03-30] MEDS: LORazepam 0.5 MG TAB PO PRN (13:40)
[2024-03-30] MEDS: CHOLESTYRAMINE 4 GM POWDER PO ONE (13:52)
[2024-03-30] MEDS: DIPHENOXYLATE W/ATROPINE 2.5 MG TAB PO ONE (13:52)
[2024-03-30 14:22] LABS: Basophils # (auto) 0 10 ^3/uL (0-0.2); Basophils % (auto) 0.4 % (0.0-2.0); Eosinophils # (auto) 0.2 10 ^3/uL (0-0.8); Eosinophils % (auto) 4.7 % (0.0-7.0); Hematocrit 29.9 % (41.0-53.0); Lymphocytes # (auto) 0.5 10 ^3/uL (0.4-5.4); Lymphocytes % (auto) 13.8 % (10.0-50.0); Mean Corpuscular Hemoglobin 30.1 pg (28.0-32.0); Mean Corpuscular Hgb Conc. 33.5 g/dL (32.0-36.0); Mean Corpuscular Volume 89.7 fL (80.0-100.0); Monocytes # (auto) 0.4 10 ^3/uL (0-1.3); Monocytes % (auto) 10.3 % (0.0-12.0); Neutrophils # (auto) 2.5 10 ^3/uL (1.6-8.6); Neutrophils % (auto) 70.8 % (37.0-80.0); Platelet Count (auto) 111 10^3/uL (140-450); Red Blood Cells 3.33 10^6/uL (4.5-5.90); Red Cell Distribution Width 19.1 % (11.8-14.3); White Blood Cell 3.5 10^3/uL (4.4-10.8)
[2024-03-30 14:32] LABS: Alanine Aminotransferase 24 U/L (7-40); Albumin 2.9 g/dL (3.2-4.8); Alkaline Phosphatase 76 U/L (46-116); Anion Gap 4 (5-15); Aspartate Aminotransferase 39 U/L (13-40); BUN/Creatinine Ratio 7.8 (10.0-20.0); Blood Urea Nitrogen 8 mg/dL (9-23); Calcium 8.5 mg/dL (8.7-10.4); Carbon Dioxide 24 mmol/L (20-30); Chloride 104 mmol/L (98-107); Glucose 97 mg/dL (74-106); Magnesium 1.5 mg/dL (1.6-2.6); Potassium 4.1 mmol/L (3.5-5.1)
[2024-03-30 14:33] LABS: Bilirubin, Total 0.3 mg/dL (0.2-1.0); Sodium 132 mmol/L (136-145); Total Protein 8.7 g/dL (5.7-8.2)
[2024-03-30] MEDS ORDERED: DIPHENOXYLATE W/ATROPINE 2.5 MG TAB PO PRN (15:15)
[2024-03-31] VITALS (7 sets, daily range): BP systolic 97–119; BP diastolic 60–77; PULSE 79–109; RESP 18–20; TEMP 97.4–98.5; O2SAT 94–98
[2024-03-31] MEDS: CHOLESTYRAMINE 4 GM POWDER PO SCH ×2 (11:19→22:55)
[2024-03-31] MEDS: DIPHENOXYLATE W/ATROPINE 2.5 MG TAB PO SCH (11:19)
[2024-04-01] MEDS: ACETAMINOPHEN 325 MG TAB PO PRN (02:54)
[2024-04-01 05:04] VITALS: BP 90/50; PULSE 88; RESP 20; TEMP 98; O2SAT 98
[2024-04-01 08:00] VITALS: PULSE 86
[2024-04-01 08:44] LABS: Hepatitis B Surface Antibody Positive (Negative)
[2024-04-01 08:56] LABS: Hepatitis B Surface Antigen Negative (Negative)
[2024-04-01 09:00] VITALS: BP 104/64; PULSE 101; RESP 20; TEMP 98; O2SAT 98
[2024-04-01 09:18] LABS: Hepatitis C Antibody Negative (Negative)
[2024-04-01 13:00] VITALS: BP 124/61; PULSE 99; RESP 20; TEMP 98.1; O2SAT 97
[2024-04-01 13:46] LABS: Hematocrit 29.4 % (41.0-53.0); Hemoglobin 9.8 g/dL (13.5-17.5); Mean Corpuscular Hemoglobin 31.5 pg (28.0-32.0); Mean Corpuscular Hgb Conc. 33.4 g/dL (32.0-36.0); Mean Corpuscular Volume 94.4 fL (80.0-100.0); Platelet Count (auto) 113 10^3/uL (140-450); Red Blood Cells 3.11 10^6/uL (4.5-5.90); Red Cell Distribution Width 19.7 % (11.8-14.3); White Blood Cell 3.9 10^3/uL (4.4-10.8)
[2024-04-01 14:00] LABS: Basophils % (manual) 0 (0.0-2.0); Blast Cells 0; Eosinophils % (manual) 0 (0-7); Myelocytes % 0; Promyelocytes % 0; Reactive Lymphocytes 0
[2024-04-01 14:02] LABS: Alanine Aminotransferase 20 U/L (7-40); Albumin 2.6 g/dL (3.2-4.8); Alkaline Phosphatase 63 U/L (46-116); Anion Gap 3 (5-15); Aspartate Aminotransferase 27 U/L (13-40); BUN/Creatinine Ratio 8.7 (10.0-20.0); Blood Urea Nitrogen 9 mg/dL (9-23); Calcium 8.3 mg/dL (8.7-10.4); Carbon Dioxide 22 mmol/L (20-30); Chloride 110 mmol/L (98-107); Glucose 85 mg/dL (74-106); Magnesium 1.8 mg/dL (1.6-2.6); Potassium 3.9 mmol/L (3.5-5.1); Sodium 135 mmol/L (136-145)
[2024-04-01 14:03] LABS: Bilirubin, Total 0.3 mg/dL (0.2-1.0)
[2024-04-01 14:10] LABS: Band Neutrophils % (manual) 7; Lymphocytes % (manual) 35 (10.0-50.0); Metamyelocytes % 1; Monocytes % (manual) 7 (0-12); Platelet Estimate Decreased
[2024-04-01 20:00] VITALS: PULSE 87
[2024-04-01 22:00] VITALS: BP 105/64; PULSE 96; RESP 20; TEMP 98.5; O2SAT 98
[2024-04-02] MEDS: HYDROcodone-ACET 5/325MG TAB PO PRN (00:34)
[2024-04-02 05:00] VITALS: BP 107/60; PULSE 94; RESP 20; TEMP 98.6; O2SAT 94
[2024-04-02] MEDS: CITALOPRAM HYDROBR 20 MG TAB PO SCH (06:27)
[2024-04-02 08:00] VITALS: PULSE 93; PULSE 99; RESP 17; O2SAT 97
[2024-04-02 09:00] VITALS: BP 113/66; PULSE 99; RESP 17; TEMP 97.2; O2SAT 97
[2024-04-02] MEDS ORDERED: BICT1TAB PO (17:27)
[2024-04-02] MEDS ORDERED: SULF400T11 PO (17:27)
[2024-04-02 20:00] VITALS: PULSE 101
== END 2024-04-02 20:30 | DRG 977 ==
LOC: TELE-WESTW 06:57
PROVIDERS: ADMIT Nurse Practitioner Family; ATTEND Internal Medicine
DX: B20 Human immunodeficiency virus [HIV] disease (principal); A08.39 Other viral enteritis; I85.00 Esophageal varices without bleeding; R45.851 Suicidal ideations; A07.2 Cryptosporidiosis; R55 Syncope and collapse; K57.10 Diverticulosis of small intestine without perforation or abscess without bleeding; F15.10 Other stimulant abuse, uncomplicated; F32.A Depression, unspecified; F41.1 Generalized anxiety disorder; I10 Essential (primary) hypertension; D64.9 Anemia, unspecified; K44.9 Diaphragmatic hernia without obstruction or gangrene; R45.850 Homicidal ideations; Z91.199 Patient's noncompliance with other medical treatment and regimen due to unspecified reason; Z79.899 Other long term (current) drug therapy
CPT/HCPCS: 36415; 74246; 80048; 80053; 80076; 81001; 82270; 82962; 83735; 85007; 85025; 85027; 85610; 85730; 86360; 86706; 86803; 87045; 87081; 87340; 87427; 87493; 87536; 97110; 97116; 97163; 97530; G0378; J2405

== ENCOUNTER 2024-09-22 12:46 | Emergency (ER) | payer MEDICAID, MEDICARE, OTHER ==
[~2024-09-22] VITALS: Ht 188 cm; Wt 90.9 kg
[~2024-09-22 12:46] MED LIST changes: +HYDR1TAB97 PO; +PANT40T PO; +POLY335015 PO; +SULF400T11 PO
--- NOTE | 2024-09-22 13:10 | ED.PDOC ---
Musculoskeletal HPI Comments 64 year old male NIHARIKA presents to the ED with chief complaint of right wrist pain s/p fall. EMS reports that the patient had a syncopal episode last night around 11pm in the kitchen, losing consciousness and waking up with right wrist pain and swelling. EMS relays that the patient had his wrist wrapped by a neighbor and they had called 911 due to the patient continuing to experience worsening pain and swelling. Patient denies any numbness, weakness, chest pain, SOB, or N/V. Chief Complaint: Dizziness Time Seen by MD: 13:05 Primary Care Provider: UNKNOWN Reviewed Notes: Nurses Notes, Medications, Allergies Allergies: Coded Allergies: NO KNOWN ALLERGIES (Unverified , 02/21/22) Home Meds Active Scripts Sulfamethoxazole-Trimethoprim (Bactrim) 1 Tab Tab, 1 TAB PO DAILY, #30 TAB Prov:CHEY QUESADA MD 04/02/24 Fxmzqwooqkc-Subkczialmvmd-Ujnr (Biktarvy 50-200-25 mg) 1 Tab Tab, 1 TAB PO DAILY for 30 Days, #30 TAB Prov:CHEY QUESADA MD 04/02/24 Reported Medications Hydrocodone-Acetaminophen (Hydrocodone/Acetaminophen 5-325 mg) 1 Tab Tab, 1 TAB PO Q4HP PRN for PAIN SCALE 1 THRU 6, TAB 03/27/24 Polyethylene Glycol 3350 (Miralax) 17 Gm Pow, 17 GM PO DAILY, POW 03/27/24 Pantoprazole Sodium Sesquihydr (Pantoprazole Sodium) 40 Mg Tab, 1 TAB PO BID 03/27/24 Information Source: Patient Mode of Arrival: EMS Location: Right Extremity Location: Wrist Timing: Weeks Prehospital treatment: None Severity: Moderate Able to Move Extremity: Yes Bear Weight: Fully Pain: Moderate Mechanism: Blunt Trauma Circumstances: Fall Onset of Symptoms: After Trauma Symptoms: Swelling, Pain DVT Risk Factors: NONE Past Medical History PAST MEDICAL HISTORY: HIV Surgical History: Denies all surgeries Family History Family History: Reviewed,noncontributory to illness Social History Smoker: Non-Smoker Alcohol: Denies ETOH Use Drugs: Denies Drug Use Lives In: Home Constitutional: denies: chills, diaphoresis, fatigue, fever, malaise, sweats, weakness, others EENTM: denies: blurred vision, double vision, ear bleeding, ear discharge, ear drainage, ear pain, ear ringing, eye pain, eye redness, hearing loss, mouth pain, mouth swelling, nasal discharge, nose bleeding, nose congestion, nose pain, photophobia, tearing, throat pain, throat swelling, voice changes, others Respiratory: denies: cough, hemoptysis, orthopnea, SOB at rest, shortness of breath, SOB with excertion, stridor, wheezing, others Cardiovascular: denies: chest pain, dizzy spells, diaphoresis, Dyspnea on exertion, edema, irregular heart beat, left arm pain, lightheadedness, palpitations, PND, syncope, others Gastrointestinal: denies: abdomen distended, abdominal pain, blood streaked bowels, constipated, diarrhea, dysphagia, difficulty swallowing, hematemesis, melena, nausea, poor appetite, poor fluid intake, rectal bleeding, rectal pain, vomiting, others Genitourinary: denies: burning, dysuria, flank pain, frequency, hematuria, incontinence, penile discharge, penile sore, pain, testicle pain, testicle swelling, urgency, others Neurological: reports: dizziness; denies: fainting, headache, left sided numbness, left sided weakness, numbness, paresthesia, pre-existing deficit, right sided numbness, right sided weakness, seizure, speech problems, tingling, tremors, weakness, others Musculoskeletal: reports: others (Rt wrist pain and swelling); denies: back pain, gout, joint pain, joint swelling, muscle pain, muscle stiffness, neck pain Integumetry: denies: bruises, change in color, change in hair/nails, dryness, laceration, lesions, lumps, rash, wounds, others Allergic/Immunocompromised: denies: Difficulty Healing, Frequent Infections, Hives, Itching, others Hematologic/Lymphatic: denies: anemia, blood clots, easy bleeding, easy bruising, swollen glands, others Endocrine: denies: excessive hunger, excessive sweating, excessive thirst, excessive urination, flushing, intolerance to cold, intolerance to heat, unexplained weight gain, unexplained weight loss, others Psychiatric: denies: anxiety, bipolar disorder, depression, hopeless, panic disorder, schizophrenia, sleepless, suicidal, others All Other Systems: Reviewed and Negative Physical Exam General Appearance: No Apparent Distress, Normal HEENT: Normal ENT Inspection, PERRL/EOMI Neck: Full Range of Motion, Non-Tender, Normal, Normal Inspection Respiratory: Chest Non-Tender, Lungs Clear, No Accessory Muscle Use, No Respiratory Distress, Normal Breath Sounds Cardiovascular: No Edema, No JVD, No Murmur, No Gallop, Normal Peripheral Pulses, Regular Rate/Rhythm Breast Exam: Deferred Gastrointestinal: No Organomegaly, Non Tender, No Pulsatile Mass, Normal Bowel Sounds, Soft Genitalia: Deferred Pelvic: Deferred Rectal: Deferred Extremities: No calf tenderness, Normal capillary refill, Normal range of motion, No pedal edema, Other (Swelling and tenderness to the right wrist) Musculoskeletal : Apperance: Normal Neurologic: Alert, secondary teacher II-XII nml as Tested, No Motor Deficits, Normal Affect, Normal Mood, No Sensory Deficits Cerebellar Function: Normal Reflexes: Normal Skin: Dry, Normal Color, Warm Lymphatic: No Adenopathy Was a procedure done? Was a procedure done?: No Differential Diagnosis EXT Differential Diagnosis: Other (ACS, viral syndrome, intracranial abnormality, right wrist fracture) X-Ray, Labs, Meds, VS Vital Signs Date Time Temp Pulse Resp B/P (MAP) Pulse Ox O2 Delivery O2 Flow Rate FiO2 09/22/24 12:55 105 09/22/24 12:51 98.6 103 18 129/86 (100) 99 Lab Test 09/22/24 13:17 Range/Units White Blood Count 3.2 L 4.4-10.8 10^3/uL Red Blood Count 4.22 L 4.5-5.90 10^6/uL Hemoglobin 11.6 L 13.5-17.5 g/dL Hematocrit 35.0 L 41.0-53.0 % Mean Corpuscular Volume 83.0 80.0-100.0 fL Mean Corpuscular Hemoglobin 27.4 L 28.0-32.0 pg Mean Corpuscular Hemoglobin Concent 33.0 32.0-36.0 g/dL Red Cell Distribution Width 17.5 H 11.8-14.3 % Platelet Count 270 140-450 10^3/uL Mean Platelet Volume 8.1 6.9-10.8 fL Neutrophils (%) (Auto) 62.9 37.0-80.0 % Lymphocytes (%) (Auto) 14.5 10.0-50.0 % Monocytes (%) (Auto) 12.8 H 0.0-12.0 % Eosinophils (%) (Auto) 9.0 H 0.0-7.0 % Basophils (%) (Auto) 0.8 0.0-2.0 % Neutrophils # (Auto) 2.0 1.6-8.6 10 ^3/uL Lymphocytes # (Auto) 0.5 0.4-5.4 10 ^3/uL Monocytes # (Auto) 0.4 0-1.3 10 ^3/uL Eosinophils # (Auto) 0.3 0-0.8 10 ^3/uL Basophils # (Auto) 0 0-0.2 10 ^3/uL Nucleated Red Blood Cells 0.5 % Sodium Level 136 136-145 mmol/L Potassium Level 4.4 3.5-5.1 mmol/L Chloride Level 104 98-107 mmol/L Carbon Dioxide Level 25 20-31 mmol/L Anion Gap 7 5-15 Blood Urea Nitrogen 29 H 9-23 mg/dL Creatinine 1.49 H 0.700-1.30 mg/dL Glomerular Filtration Rate Calc 52 >90 mL/min BUN/Creatinine Ratio 19.5 10.0-20.0 Serum Glucose 97 74-106 mg/dL Calcium Level 9.3 8.7-10.4 mg/dL Troponin I High Sensitivity 8 </=54 ng/L CT Head: FINDINGS: There is no evidence of acute intracranial hemorrhage, extra-axial collection, mass effect, midline shift, herniation or hydrocephalus. A small nonspecific calcification in the right parietal white matter is unchanged. Subcentimeter poorly defined hypodense foci in the inferior basal ganglia likely represent enlarged perivascular spaces when compared with prior MRI. The ventricles, sulci and cisterns are age appropriate. The sunshine-white differentiation is intact. Mild periventricular and subcortical white matter hypoattenuation is nonspecific but may be related to small vessel ischemic disease. Moderate mucosal thickening in the right maxillary sinus. The remainder of the paranasal sinuses demonstrate minimal mucosal thickening which is improved compared to 02/28/2024. The mastoids are well-aerated. The surrounding soft tissues and osseous structures are unremarkable. IMPRESSION: No evidence of acute intracranial abnormality. Time of 1ST Reevaluation: 14:05 Reevaluation 1ST: Unchanged Patient Education/Counseling: Diagnosis, Treatment Family Education/Counseling: No Family Present Additional Information The following tests were ordered, and results were reviewed by me: CBC, BMP, Troponin, EKG, Head CT, Chest XR, Rt Wrist XR Additional Information was gathered from interviewing the following independent historians: EMS I reviewed and agreed with the following test results read by other providers: Head CT, Chest XR, Rt Wrist XR I discussed treatment and results with medical personnel. Departure 1 Departure Time of Disposition: 15:41 (Patient with a syncopal episode and a wrist fracture. The patient's workup benign other than a right wrist fracture. Patient has not want to stay we will discharge patient home with outpatient follow up) Impression: Primary Impression: Vasovagal episode Additional Impression: Distal radius fracture, right Qualified Codes: S52.501A - Unspecified fracture of the lower end of right radius, initial encounter for closed fracture Disposition: HOME / SELF CARE / HOMELESS Condition: Stable Referrals: JENNIFER SALMON MD Additional Instructions: You broke your wrist. You were placed in a splint. It is important to follow up with the Orthopedic surgery next week. The rest of your workup is benign. For pain you can take the followinam: Ibuprofen 400mg with food Noon: Acetaminophen 1000mg 4pm: Ibuprofen 400mg with food 8pm: Acetaminophen 1000mg You should follow up with your regular doctor within one week to ensure you are doing better. If your symptoms worsen or you have any other concerns then please return to the ER. Discharged With: Self Critical Care Note Critical Care Time?: No Stability Stability form required: No Heart Score Heart Score: Heart Score Response (Comments) Value History Slightly Suspicious 0 EKG Normal 0 Age 45-64 1 Risk Factors 1 or 2 risk factors 1 Troponin Normal limit 0 Total 2 I personally scribed for AGUSTIN SANCHEZ MD ([email or web address]) on 09/22/24 at 13:10. Electronically submitted by Ta Armstrong ([email or web address]). I personally scribed for AGUSTIN SANCHEZ MD ([email or web address]) on 09/22/24 at 15:02. Electronically submitted by Ta Armstrong ([email or web address]). AGUSTIN SANCHEZ MD Sep 22, 2024 13:10
[2024-09-22 13:45] LABS: Basophils # (auto) 0 10 ^3/uL (0-0.2); Basophils % (auto) 0.8 % (0.0-2.0); Eosinophils # (auto) 0.3 10 ^3/uL (0-0.8); Hemoglobin 11.6 g/dL (13.5-17.5); Lymphocytes # (auto) 0.5 10 ^3/uL (0.4-5.4); Lymphocytes % (auto) 14.5 % (10.0-50.0); Mean Corpuscular Hemoglobin 27.4 pg (28.0-32.0); Monocytes # (auto) 0.4 10 ^3/uL (0-1.3); Monocytes % (auto) 12.8 % (0.0-12.0); Neutrophils % (auto) 62.9 % (37.0-80.0); Nucleated Red Blood Cells % 0.5 %; Platelet Count (auto) 270 10^3/uL (140-450); Red Blood Cells 4.22 10^6/uL (4.5-5.90); Red Cell Distribution Width 17.5 % (11.8-14.3); White Blood Cell 3.2 10^3/uL (4.4-10.8)
[2024-09-22 13:54] LABS: Chloride 104 mmol/L (98-107); Potassium 4.4 mmol/L (3.5-5.1)
[2024-09-22 13:55] LABS: Anion Gap 7 (5-15); Calcium 9.3 mg/dL (8.7-10.4); Carbon Dioxide 25 mmol/L (20-31)
[2024-09-22 13:59] LABS: Sodium 136 mmol/L (136-145)
[2024-09-22 14:00] LABS: BUN/Creatinine Ratio 19.5 (10.0-20.0); Blood Urea Nitrogen 29 mg/dL (9-23); Glucose 97 mg/dL (74-106)
--- NOTE | 2024-09-22 14:14 | DVH ---
EXAM: XY CHEST PORTABLE TECHNIQUE: Single frontal chest radiograph CLINICAL HISTORY: syncope COMPARISON: XY CHEST PORTABLE on DOS: 02/28/24, CHEST PORTABLE on DOS: 06/15/22, CXRP on DOS: 06/15/22 Findings/Impression: Frontal chest radiograph demonstrates no acute osseous or superficial soft tissue abnormalities. The trachea is midline. The cardiac silhouette and mediastinum are within normal limits. No pneumothorax, pleural effusions, or consolidations.
--- NOTE | 2024-09-22 14:19 | DVH ---
EXAM: CT HEAD WITHOUT CONTRAST INDICATION: syncope TECHNIQUE: CT of the head without intravenous contrast. Radiation Dose : 1. Head: CT Dose: CTDI volume is 57.33 mGy. Dose-length product is 1033.68 mGy*cm The dose indicators for CT are the volume Computed Tomography (CT) Dose Index (CTDIvol) and the Dose Length Product (DLP), and are measured in units of mGy and mGy-cm, respectively. These indicators are not patient dose, but values generated from the CT scanner acquisition factors. The report includes radiation exposure data for exposures received during this examination. COMPARISON: CT HEAD WITHOUT CONTRAST on DOS: 02/28/24 ; MRI brain 03/01/2024 FINDINGS: There is no evidence of acute intracranial hemorrhage, extra-axial collection, mass effect, midline s hift, herniation or hydrocephalus. A small nonspecific calcification in the right parietal white anshu er is unchanged. Subcentimeter poorly defined hypodense foci in the inferior basal ganglia likely rep resent enlarged perivascular spaces when compared with prior MRI. The ventricles, sulci and cisterns are age appropriate. The sunshine-white differentiation is intact. Mild periventricular and subcortical white matter hypoattenuation is nonspecific but may be related t o small vessel ischemic disease. Moderate mucosal thickening in the right maxillary sinus. The remainder of the paranasal sinuses dem onstrate minimal mucosal thickening which is improved compared to 02/28/2024. The mastoids are well- aerated. The surrounding soft tissues and osseous structures are unremarkable. IMPRESSION: No evidence of acute intracranial abnormality. Radiation optimization: All CT scans at this facility use at least one of these dose optimization mckenzie hniques: automated exposure control mA and/or kV adjustment per patient size (includes targeted exam s where dose is matched to clinical indication) or iterative reconstruction.
--- NOTE | 2024-09-22 14:21 | DVH ---
EXAM: XY R WRIST 3+ VIEW XRAY CLINICAL HISTORY: fall, right wrist pain and swelling COMPARISON: None TECHNIQUE: XY R WRIST 3+ VIEW XRAY Findings/Impression: 3 views of the right wrist. Nondisplaced fracture of the distal radius. Moderate soft tissue edema. There is no evidence of dislocation, blastic, or lytic lesions. No radiopaque foreign bodies.
[2024-09-22 16:14] VITALS: BP 104/88; PULSE 105; RESP 16; TEMP 98.7; O2SAT 100
--- NOTE | 2024-09-23 12:44 | ECG ---
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
== END 2024-09-22 16:39 | disposition home or self-care (01) ==
LOC: ER 12:46 → EDBD 12:46 → ER 16:39
DX: S52.501A Unspecified fracture of the lower end of right radius, initial encounter for closed fracture (principal); R55 Syncope and collapse; Z79.899 Other long term (current) drug therapy; W19.XXXA Unspecified fall, initial encounter; Y93.89 Activity, other specified; Y92.89 Other specified places as the place of occurrence of the external cause; Y99.8 Other external cause status
CPT/HCPCS: 29125; 36415; 70450; 71045; 73110; 80048; 84484; 85025; 93005

== ENCOUNTER 2025-01-02 20:56 | Inpatient (IN) | payer MEDICARE ==
[~2025-01-02] VITALS: Ht 193 cm; Wt 92.3 kg
[2025-01-02] MEDS: SODIUM CHLORIDE 0.9% 1,000 ML IV ONE (04:10)
--- NOTE | 2025-01-02 21:40 | ED.PDOC ---
History of Present Illness HPI Comments HPI: 64 year old male presents to the ED with chief complaint of generalized weakness. Patient reports that he has been experiencing generalized weakness for few months now, stating that "he cannot function." Patient relays that he has been non-compliant with his HIV medication for the past 2 months. Patient has no specific complaints at this time. Patient denies any chest pain, SOB, dizziness, N/V/D, abdominal pain, fever, headache, or chills. Past Medical history: HIV, non-compliant with medication x2 months Past Surgical history: Denies Medications: Denies Allergies: NKDA Social History: denies ETOH, denies tobacco use, denies drug use Initial vitals: BP: HR: RR: O2 Sat.: Temp.: HPI: Poor Historian. REVIEW OF SYSTEMS: CONSTITUTIONAL: Denies acute: fever, diaphoresis, chills, HEAD: Denies acute: headache, photophobia Eyes: Denies acute: Double vision, vision loss, eye pain, eye discharge. EARS: Denies acute: tinnitus, hearing loss, ear discharge, ear pain, THROAT: Denies acute: sore throat, swelling, difficulty swallowing , pain with swallowing, change in voice. NECK: Denies acute: neck pain, neck swelling, stiff neck. HEART: Denies acute : chest pain, palpitations, LUNGS: Denies acute: SOB, wheezing, cough, hemoptysis ABDOMEN: Denies acute: abdominal pain, Nausea, Vomiting, diarrhea, melena , hematemesis, hematochezia SKIN: Denies acute: rash, redness, lesions, itchiness. EXTREMITIES: Denies acute: calf pain, numbness, tingling, weakness, denies pain in extremity. Denies acute: Low back pain. Neuro: Denies acute: focal neurological deficit, motor or sensory focal neurological deficit, tremors, seizure like activity, confusion, dizziness, change in mental status, loss of bowel or bladder function, cauda equina like symptoms. : Denies acute: dysuria, hematuria, flank pain, increase in urinary frequency. PSYCH: Denies acute: hallucination, suicidal ideation, homicidal ideation. PHYSICAL EXAM: General: ----[id number]----acute distress, awake and alert. Head: normocephalic, atraumatic. Neck: supple, trachea is midline, no swelling. Throat: Normal phonation. Eyes:, no erythema, no purulent discharge, no proptosis, no icterus. Heart: regular rate, regular rhythm, no significant murmur appreciated. Lungs: no apparent respiratory distress, Able to speak in full sentences. No wheezing, no rhonchi, no crackles. No stridors Clear to auscultation bilaterally. Abdomen: non tender to palpation, non distended, soft, no guarding, no rebound, + bowel sounds. Neuro: Awake, Alert, oriented to name, self, situation, follows commands GCS=15. Speech is normal. Skin: no petechia, no purpura, no cyanosis, non-pale, not jaundice. Lower extremities: --no - Pitting edema no deformity, no focal swelling, no calf TTP. Makes eye contact. moves all four extremities. Face: no apparent facial droop. No CVA tenderness to percussion bilaterally. pt requires assistance to stand up due to generalized weakness. Ears: Normal appearing TM b/l, Stroke: finger to nose cerebellar testing is intact. No pronator drift. 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 b/l ED COURSE: Chief Complaint: General Weakness Time Seen by MD: 21:38 Primary Care Provider: UNKNOWN Reviewed Notes: Medications, Allergies Allergies: Coded Allergies: NO KNOWN ALLERGIES (Unverified , 02/21/22) Home Meds Active Scripts Sulfamethoxazole-Trimethoprim (Bactrim) 1 Tab Tab, 1 TAB PO DAILY, #30 TAB Prov:CHEY QUESADA MD 04/02/24 Epugjelsvna-Nonskatsxbhsk-Sbjl (Biktarvy 50-200-25 mg) 1 Tab Tab, 1 TAB PO DAILY for 30 Days, #30 TAB Prov:CHEY QUESADA MD 04/02/24 Reported Medications Hydrocodone-Acetaminophen (Hydrocodone/Acetaminophen 5-325 mg) 1 Tab Tab, 1 TAB PO Q4HP PRN for PAIN SCALE 1 THRU 6, TAB 03/27/24 Polyethylene Glycol 3350 (Miralax) 17 Gm Pow, 17 GM PO DAILY, POW 03/27/24 Pantoprazole Sodium Sesquihydr (Pantoprazole Sodium) 40 Mg Tab, 1 TAB PO BID 03/27/24 Information Source: Patient Was a procedure done? Was a procedure done?: No Differential Dx Considerations may include: Includes but not limited to thyroid disease, encephalopathy, electrolyte abnormality, sepsis, infection, intracranial pathology, drug adverse effects, arrhythmia, kidney insufficiency, ACS, CVA, malignancy, anemia X-Ray, Labs, Meds, VS Vital Signs Date Time Temp Pulse Resp B/P (MAP) Pulse Ox O2 Delivery O2 Flow Rate FiO2 01/02/25 21:48 109 01/02/25 21:35 98.4 81 16 108/67 (81) 97 98.4 Lab Test 01/02/25 23:28 01/02/25 22:25 01/02/25 21:38 01/02/25 21:30 Range/Units Lactic Acid Level 1.2 2.1 *H 0.4-2.0 mmol/L Troponin I High Sensitivity 6 6 </=54 ng/L White Blood Count 3.6 L 4.4-10.8 10^3/uL Red Blood Count 3.61 L 4.5-5.90 10^6/uL Hemoglobin 10.2 L 13.5-17.5 g/dL Hematocrit 30.4 L 41.0-53.0 % Mean Corpuscular Volume 84.2 80.0-100.0 fL Mean Corpuscular Hemoglobin 28.3 28.0-32.0 pg Mean Corpuscular Hemoglobin Concent 33.6 32.0-36.0 g/dL Red Cell Distribution Width 16.8 H 11.8-14.3 % Platelet Count 135 L 140-450 10^3/uL Mean Platelet Volume 9.2 6.9-10.8 fL Neutrophils (%) (Auto) 59.2 37.0-80.0 % Lymphocytes (%) (Auto) 17.8 10.0-50.0 % Monocytes (%) (Auto) 11.1 0.0-12.0 % Eosinophils (%) (Auto) 11.4 H 0.0-7.0 % Basophils (%) (Auto) 0.5 0.0-2.0 % Neutrophils # (Auto) 2.1 1.6-8.6 10 ^3/uL Lymphocytes # (Auto) 0.6 0.4-5.4 10 ^3/uL Monocytes # (Auto) 0.4 0-1.3 10 ^3/uL Eosinophils # (Auto) 0.4 0-0.8 10 ^3/uL Basophils # (Auto) 0 0-0.2 10 ^3/uL Nucleated Red Blood Cells 0.1 % Sodium Level 136 136-145 mmol/L Potassium Level 3.7 3.5-5.1 mmol/L Chloride Level 106 98-107 mmol/L Carbon Dioxide Level 23 20-31 mmol/L Anion Gap 7 5-15 Blood Urea Nitrogen 15 9-23 mg/dL Creatinine 1.17 0.700-1.30 mg/dL Glomerular Filtration Rate Calc 70 >90 mL/min BUN/Creatinine Ratio 12.8 10.0-20.0 Serum Glucose 101 74-106 mg/dL Calcium Level 9.3 8.7-10.4 mg/dL Magnesium Level 1.8 1.6-2.6 mg/dL Total Bilirubin 0.3 0.2-1.0 mg/dL Aspartate Amino Transferase (AST) 23 13-40 U/L Alanine Aminotransferase (ALT) 15 7-40 U/L Alkaline Phosphatase 93 46-116 U/L Total Protein 8.5 H 5.7-8.2 g/dL Albumin 3.4 3.2-4.8 g/dL POC Glucose 118 H 70-106 mg/dl Time of 1ST Reevaluation: 00:15 (As of this minute. Patient has not received any of the fluids I ordered earlier. Urinalysis still pending.) Reevaluation 1ST: Unchanged Patient Education/Counseling: Diagnosis, Treatment Family Education/Counseling: No Family Present Comments Patient presented with the above HPI.---generalized weakness---workup was initiated. patient was found with the above mentioned diagnosis. the following medications were ordered: please refer to order lists of meds and tests obtained by myself Dr. Kelley. Patient ED course and VS have been stabilized. Patient has been reassessed in the ED and remained in a stable condition. Pertinent incidental findings were discussed with the patient and/or family. Patient/family voices understanding and is agreeable with plan. Patient has been observed in the ED adequate length of time to insure improvement/stability. Escalation of care considered: Consideration of escalation to observation or admission Patient was ADMITTED to the medicine team for further evaluation and treatment of their presentation. Urinalysis is still pending. All the reports of any imaging studies that were ordered by myself were reviewed by myself. Departure 1 Departure Time of Disposition: 22:22 Impression: Primary Impression: Generalized weakness Additional Impressions: Orthostatic hypotension Noncompliance with medication regimen Anemia Thrombocytopenia Disposition: ADMITTED INPATIENT Admit to: Tele Condition: Guarded Discharged With: Self Critical Care Note Critical Care Time?: No I personally scribed for JOVANNA KELLEY DO ([email or web address]) on 01/02/25 at 21:39. Electronically submitted by Ta Armstrong ([email or web address]). JOVANNA KELLEY DO Jan 02, 2025 21:39
[2025-01-02 22:03] LABS: Basophils # (auto) 0 10 ^3/uL (0-0.2); Basophils % (auto) 0.5 % (0.0-2.0); Eosinophils # (auto) 0.4 10 ^3/uL (0-0.8); Eosinophils % (auto) 11.4 % (0.0-7.0); Hematocrit 30.4 % (41.0-53.0); Hemoglobin 10.2 g/dL (13.5-17.5); Lymphocytes # (auto) 0.6 10 ^3/uL (0.4-5.4); Lymphocytes % (auto) 17.8 % (10.0-50.0); Mean Corpuscular Hemoglobin 28.3 pg (28.0-32.0); Mean Corpuscular Hgb Conc. 33.6 g/dL (32.0-36.0); Mean Corpuscular Volume 84.2 fL (80.0-100.0); Monocytes # (auto) 0.4 10 ^3/uL (0-1.3); Monocytes % (auto) 11.1 % (0.0-12.0); Neutrophils # (auto) 2.1 10 ^3/uL (1.6-8.6); Neutrophils % (auto) 59.2 % (37.0-80.0); Nucleated Red Blood Cells % 0.1 %; Platelet Count (auto) 135 10^3/uL (140-450); Red Blood Cells 3.61 10^6/uL (4.5-5.90); Red Cell Distribution Width 16.8 % (11.8-14.3); White Blood Cell 3.6 10^3/uL (4.4-10.8)
[2025-01-02 22:22] LABS: Alanine Aminotransferase 15 U/L (7-40); Albumin 3.4 g/dL (3.2-4.8); Alkaline Phosphatase 93 U/L (46-116); Anion Gap 7 (5-15); Aspartate Aminotransferase 23 U/L (13-40); BUN/Creatinine Ratio 12.8 (10.0-20.0); Blood Urea Nitrogen 15 mg/dL (9-23); Calcium 9.3 mg/dL (8.7-10.4); Carbon Dioxide 23 mmol/L (20-31); Chloride 106 mmol/L (98-107); Glucose 101 mg/dL (74-106); Magnesium 1.8 mg/dL (1.6-2.6); Potassium 3.7 mmol/L (3.5-5.1); Sodium 136 mmol/L (136-145)
[2025-01-02 22:26] LABS: Bilirubin, Total 0.3 mg/dL (0.2-1.0); Total Protein 8.5 g/dL (5.7-8.2)
--- NOTE | 2025-01-02 22:30 | DVH ---
CHEST RADIOGRAPH Indication: gen weak Technique: Single frontal view of the chest was obtained Comparison: XY CHEST PORTABLE on DOS: 09/22/24, XY CHEST PORTABLE on DOS: 02/28/24, CHEST PORTABLE on D OS: 06/15/22 FINDINGS: Lines and Tubes: None Lungs: Clear Pleura: No effusion. No pneumothorax. Cardiomediastinal contours: Unremarkable Bones: Unremarkable IMPRESSION: Clear lungs.
[2025-01-02 22:35] LABS: Lactic Acid w/Reflex 2.1 mmol/L (0.4-2.0)
[2025-01-03] MEDS: SODIUM CHLORIDE 0.9% 1,000 ML IV ONE (00:30)
[2025-01-03 03:40] VITALS: PULSE 109; RESP 16; O2SAT 100
--- NOTE | 2025-01-03 06:09 | DVHHPRES ---
History of Present Illness Resident Creating Document: LONNYANTWONMARK RESIDENT History of Present Illness Patient is a 64-year-old male with a past medical history of HIV diagnosed in 1983, noncompliant visit medication for the last 2 months presented to the ED with a chief complaint of generalized weakness and dizziness. Patient reports that since the last month and a half he has been having dizziness and feels weak when he is tries to get up from sitting position to standing and can not stand for a long period of time. He has had about 6 falls in this period of time but does not report hitting his head. Denies fevers, chills, night sweats. Reports about 10 lb weight loss in the last 2 months. Patient also reports of decreased appetite but denies difficulty swallowing. Patient denies chest pain, shortness of breath, hemoptysis, nausea or vomiting, abdominal pain, diarrhea or constipation, dysuria, frequency. Past medical history: HIV, on Biktarvy but has not been taking it since last 2 months Past surgical history: None Social history: Denies smoking, alcohol, drug use Home medications: Currently denies taking any medication Review of Systems Review of Systems Seen and examined at the bedside Patient reports of weakness in the bilateral lower extremities with dizziness when he tries to stand from a sitting or lying down position Denies cough, nausea vomiting, abdominal pain fever or chills Allergies: Coded Allergies: NO KNOWN ALLERGIES (Unverified , 02/21/22) Exam Vital Signs Vital Signs Date Time Temp Pulse Resp B/P (MAP) Pulse Ox O2 Delivery O2 Flow Rate FiO2 01/03/25 03:40 98.2 109 16 108/80 (89) 100 98.2 01/03/25 03:40 Room Air* 0 21 Exam Gen - no pallor, no icterus, no cyanosis, no clubbing, no LAD, no edema . Skin - Patients skin is warm and dry. HEENT - normocephalic, atraumatic, dry mucous membranes. Neck - full ROM, no LAD, no JVD Pulmonary - B/L equal breath sounds, no crackles, no wheezing, no stridor. cardiovascular - regular S1,S2 heard, no added sounds, no murmurs heard. peripheral pulses normal radial 2+, pedal 2+. capillary refill normal <2 secs. GI - soft, nontender abdomen. no hepatospleenomegaly. Bowel sounds normoactive Neurological - Patient is A/O X 3 . Bilateral upper extremity strength 5/5, bilateral lower extremity strength 4/5, no facial droop, normal speech, no tremor, no sensory deficiets. Labs/Xrays Labs Test 01/02/25 23:28 01/02/25 22:25 01/02/25 21:38 01/02/25 21:30 Range/Units Lactic Acid Level 1.2 0.4-2.0 mmol/L Troponin I High Sensitivity 6 </=54 ng/L White Blood Count 3.6 L 4.4-10.8 10^3/uL Red Blood Count 3.61 L 4.5-5.90 10^6/uL Hemoglobin 10.2 L 13.5-17.5 g/dL Hematocrit 30.4 L 41.0-53.0 % Mean Corpuscular Volume 84.2 80.0-100.0 fL Mean Corpuscular Hemoglobin 28.3 28.0-32.0 pg Mean Corpuscular Hemoglobin Concent 33.6 32.0-36.0 g/dL Red Cell Distribution Width 16.8 H 11.8-14.3 % Platelet Count 135 L 140-450 10^3/uL Mean Platelet Volume 9.2 6.9-10.8 fL Neutrophils (%) (Auto) 59.2 37.0-80.0 % Lymphocytes (%) (Auto) 17.8 10.0-50.0 % Monocytes (%) (Auto) 11.1 0.0-12.0 % Eosinophils (%) (Auto) 11.4 H 0.0-7.0 % Basophils (%) (Auto) 0.5 0.0-2.0 % Neutrophils # (Auto) 2.1 1.6-8.6 10 ^3/uL Lymphocytes # (Auto) 0.6 0.4-5.4 10 ^3/uL Monocytes # (Auto) 0.4 0-1.3 10 ^3/uL Eosinophils # (Auto) 0.4 0-0.8 10 ^3/uL Basophils # (Auto) 0 0-0.2 10 ^3/uL Nucleated Red Blood Cells 0.1 % Sodium Level 136 136-145 mmol/L Potassium Level 3.7 3.5-5.1 mmol/L Chloride Level 106 98-107 mmol/L Carbon Dioxide Level 23 20-31 mmol/L Anion Gap 7 5-15 Blood Urea Nitrogen 15 9-23 mg/dL Creatinine 1.17 0.700-1.30 mg/dL Glomerular Filtration Rate Calc 70 >90 mL/min BUN/Creatinine Ratio 12.8 10.0-20.0 Serum Glucose 101 74-106 mg/dL Calcium Level 9.3 8.7-10.4 mg/dL Magnesium Level 1.8 1.6-2.6 mg/dL Total Bilirubin 0.3 0.2-1.0 mg/dL Aspartate Amino Transferase (AST) 23 13-40 U/L Alanine Aminotransferase (ALT) 15 7-40 U/L Alkaline Phosphatase 93 46-116 U/L Total Protein 8.5 H 5.7-8.2 g/dL Albumin 3.4 3.2-4.8 g/dL POC Glucose 118 H 70-106 mg/dl Assessment/Plan Assessment/Plan Generalized weakness Orthostatic hypotension likely due to autonomic neuropathy HIV Possible right upper lobe consolidation - IV fluids - CD4/CD8 ratio pending - patient needs to be restarted on Biktarvy ( was following Dr. Wood but has not followed up) - CT chest without contrast done to rule out any consolidation/atypical pneumonia given the underlying history of HIV - vitamin B12 and folic acid levels pending Pancytopenia ? Bone marrow suppression - retic count pending - monitor CBC History of esophageal stricture status post dilatation - EGD done in February 2024 PUD prophylaxis: Protonix DVT prophylaxis: enoxaparin Goals of care discussed with the patient for over 23 minutes. Full code Time spent: 37 minutes Plan discussed with Dr. Michael Plan discussed with: Patient My Orders Orders - ALEENA MUKHERJEE RESIDENT Procedure Category Date Status Time Admit ADMIT 01/02/25 Transmitted 23:35 Oxygen By Nasal RT 01/02/25 Transmitted Cannula 23:35 Stat Ekg For Chest ANAIS 01/02/25 In Process Pain 23:35 Emergency Dysrhythmia ANAIS 01/02/25 In Process Protocol 23:35 Cd4/Cd8 Ratio Profile LAB 01/03/25 Logged 00:22 Vitamin B12 LAB 01/03/25 Logged 00:22 Folate (Folic Acid) LAB 01/03/25 Logged 00:22 PTPTT LAB 01/03/25 Logged 00:22 Drug Screen LAB 01/03/25 Logged 00:22 Sodium Chloride 0.9% PHA 01/03/25 In Process 00:[address] 01/03/25 Transmitted 05:35 Rapid Influenza A&B LAB 01/03/25 Transmitted 05:35 Covid19 Antigen Steffi LAB 01/03/25 Transmitted Reticulocyte Count LAB 01/03/25 Transmitted 05:35 Date of Service: Jan 02, 2025 Billing Provider: DICKSON MICHAEL MD Common Visit Codes: 14011-[id number] INP/OBS CARE (HIGH) Secondary Visit Codes: [id number] CARE PLAN 30 MINUTES ALEENA MUKHERJEE RESIDENT Jan 03, 2025 06:09
--- NOTE | 2025-01-03 06:17 | DVH ---
EXAM: CT Chest Without Intravenous Contrast CLINICAL INDICATION: HIV, suspected right upper lobe consolidation TECHNIQUE: Axial computed tomography images of the chest without intravenous contrast. This CT exam was performed using one or more of the following dose reduction techniques: automated exposure cont rol, adjustment of the mA and/or kV according to patient size, and/or use of iterative reconstruction technique. CONTRAST: COMPARISON: LTBCT on DOS: 02/25/22 FINDINGS: LUNGS AND PLEURAL SPACES: Unremarkable. No significant effusion. No pneumothorax. No focal conso lidation. HEART: Unremarkable. No cardiomegaly. No significant pericardial effusion. No significant caballero ry artery calcifications. MEDIASTINUM: Small esophageal hiatal hernia. BONES/JOINTS: Unremarkable. No acute fracture. SOFT TISSUES: Unremarkable. VASCULATURE: Unremarkable. No thoracic aortic aneurysm. LYMPH NODES: Unremarkable. No enlarged lymph nodes. LIVER: Fatty liver. OTHER FINDINGS: . . . IMPRESSION: 1. No focal consolidation. 2. Small esophageal hiatal hernia.
[2025-01-03 06:56] LABS: Basophils # (auto) 0 10 ^3/uL (0-0.2); Basophils % (auto) 0.7 % (0.0-2.0); Eosinophils # (auto) 0.4 10 ^3/uL (0-0.8); Eosinophils % (auto) 12.7 % (0.0-7.0); Hematocrit 29.6 % (41.0-53.0); Hemoglobin 9.9 g/dL (13.5-17.5); Lymphocytes # (auto) 0.5 10 ^3/uL (0.4-5.4); Lymphocytes % (auto) 13.9 % (10.0-50.0); Mean Corpuscular Hemoglobin 27.9 pg (28.0-32.0); Mean Corpuscular Hgb Conc. 33.4 g/dL (32.0-36.0); Mean Corpuscular Volume 83.6 fL (80.0-100.0); Monocytes # (auto) 0.2 10 ^3/uL (0-1.3); Monocytes % (auto) 6.9 % (0.0-12.0); Neutrophils # (auto) 2.3 10 ^3/uL (1.6-8.6); Neutrophils % (auto) 65.8 % (37.0-80.0); Nucleated Red Blood Cells % 0.2 %; Platelet Count (auto) 132 10^3/uL (140-450); Red Blood Cells 3.54 10^6/uL (4.5-5.90); Red Cell Distribution Width 16.6 % (11.8-14.3); White Blood Cell 3.4 10^3/uL (4.4-10.8)
[2025-01-03 06:59] LABS: Folate (Folic Acid) 7.74 ng/mL (>5.38)
[2025-01-03 07:04] LABS: INR 1.08 (0.9-1.15); Partial Thromboplastin Time 27.6 SEC (24.5-34.5); Prothrombin Time 11.4 sec (9.3-11.8)
[2025-01-03 07:59] LABS: COVID19 ANTIGEN SOFIA FIA NEGATIVE (NEGATIVE); Rapid Influenza A Negative (Negative); Rapid Influenza B Negative (Negative)
[2025-01-03 08:07] VITALS: PULSE 102; RESP 17; O2SAT 96
[2025-01-03 08:08] VITALS: BP 120/72; PULSE 91; RESP 20; TEMP 97.5; O2SAT 99
[2025-01-03 08:10] VITALS: BP 120/72; PULSE 94; RESP 20; TEMP 97.5; O2SAT 99
[2025-01-03] MEDS: PANTOPRAZOLE 40 MG TAB PO ONE (09:22)
[2025-01-03 09:28] LABS: Potassium 3.7 mmol/L (3.5-5.1); Sodium 138 mmol/L (136-145)
[2025-01-03 09:29] LABS: Anion Gap 6 (5-15); Calcium 8.8 mg/dL (8.7-10.4); Carbon Dioxide 23 mmol/L (20-31)
[2025-01-03 09:32] LABS: Chloride 109 mmol/L (98-107)
[2025-01-03 09:34] LABS: BUN/Creatinine Ratio 14.2 (10.0-20.0); Blood Urea Nitrogen 16 mg/dL (9-23); Glucose 99 mg/dL (74-106)
[2025-01-03] MEDS: ENOXAPARIN SOD 40 MG/0.4 ML SYRINGE SC SCH (12:43)
--- NOTE | 2025-01-03 13:26 | ECG ---
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
[2025-01-03] MEDS ORDERED: ACETAMINOPHEN 500 MG TAB or CAP PO PRN (15:00)
[2025-01-03] MEDS ORDERED: HYDROcodone-ACET 5/325MG TAB PO PRN (15:00)
[2025-01-03] MEDS ORDERED: MORPHINE SULFATE 4 MG/ML SYR/VIAL IV PRN (15:45)
[2025-01-03] MEDS: cefTRIAXone 1GM/50ML D5W 50 ML IV ONE (15:59)
[2025-01-03 16:44] LABS: Urine Bacteria FEW /hpf (None Seen); Urine Blood 3+ /uL (Negative); Urine Clarity Turbid (Clear); Urine Color Light-Orange (Yellow); Urine Mucus FEW (None Seen); Urine Protein, UAD 1+ (Negative); Urine Specific Gravity 1.015 (1.001-1.035); Urine Squamous Epithelial Cell FEW /hpf (<5); Urine Urobilinogen Normal (Negative); Urine WBC 74 /HPF (0-3)
[2025-01-03 16:59] LABS: Amphetamine Screen, Urine Pos (NEGATIVE); Barbiturate Scree,Urine Neg (NEGATIVE); Benzodiazephine Screen, Urine Neg (NEGATIVE); Cannabinoid Screen, Urine Neg (NEGATIVE); Cocaine Screen, Urine Neg (NEGATIVE); Opiate Scree,Urine Neg (NEGATIVE); Phencyclidine Screen, Urine Neg (NEGATIVE)
[2025-01-03 17:00] VITALS: BP_SYST 115; BP_SYST 94; BP_DIAS 61; BP_DIAS 75; PULSE 85; PULSE 92; RESP 19; TEMP 98.5; O2SAT 100
--- NOTE | 2025-01-03 18:32 | DVHPNRES ---
Progress Note Date Seen: Jan 03, 2025 Resident Creating Document: JOEY ROSS RESIDENT Medical Necessity Reason Pt with a Central, PICC or Fol: No Subjective Review of Systems Patient is a 64-year-old male with a past medical history of HIV diagnosed in 1983, noncompliant visit medication for the last 2 months presented to the ED with a chief complaint of generalized weakness and dizziness. Patient reports that since the last month and a half he has been having dizziness and feels weak when he is tries to get up from sitting position to standing and can not stand for a long period of time. He has had about 6 falls in this period of time but does not report hitting his head. Denies fevers, chills, night sweats. Reports about 10 lb weight loss in the last 2 months. Patient also reports of decreased appetite but denies difficulty swallowing. Patient denies chest pain, shortness of breath, hemoptysis, nausea or vomiting, abdominal pain, diarrhea or constipation, dysuria, frequency. Past medical history: HIV, on Biktarvy but has not been taking it since last 2 months Past surgical history: None Social history: Denies smoking, alcohol, drug use Home medications: Currently denies taking any medication 01/02-patient seen and examined at the bedside. Reports dizziness on standing up from the bed. Reports fever and chills for the past days. UA shows cystitis. Orthostatic ordered. Objective vital signs Vital Sign Date Time Temp Pulse Resp B/P (MAP) Pulse Ox O2 Delivery O2 Flow Rate FiO2 01/03/25 08:10 97.5 94 20 120/72 (88) 99 97.5 01/03/25 08:07 Room Air* 0 21 medications Current Medications Medications Dose Ordered Sig/Farzad Route Start Time Stop Time Status Last Admin Dose Admin Pantoprazole Sodium 40 mg DAILY@0600 PO 01/04/25 06:00 Enoxaparin Sodium 40 mg DAILY SC 01/03/25 10:00 01/03/25 12:43 40 MG Ceftriaxone Sodium 50 ml @ 100 mls/hr DAILY@09 IV 01/04/25 09:00 Acetaminophen 500 mg Q4HPRN PRN PO 01/03/25 15:00 Acetaminophen/ Hydrocodone Bitart 1 tab Q4HPRN PRN PO 01/03/25 15:00 Morphine Sulfate 1 mg Q4HPRN PRN IV 01/03/25 15:45 Examination Patient lying in bed, in no acute distress General: Well-built, afebrile, palor, mucosae are moist Cardiovascular: Regular S1 and S2. No murmurs, gallops or rubs. No JVD elevation. No pedal edema Respiratory: Normal B/L air entry on room air. Clear lung sounds on auscultation Abdomen: Soft, nontender, nondistended, normoactive bowel sounds, no rebound tenderness, no organomegaly, no masses Genitourinary: Deferred MSK/skin: Mobilizes 4 limbs. Skin is dry and warm Neurological: No motor, no sensitive deficits, normal speech. Pupils are isocoric and reactive. Psych/Mental Status: A/Ox3 laboratory and microbiology Laboratory Tests 01/03/25 09:05 Test 01/03/25 09:05 Range/Units Serum Glucose 99 74-106 mg/dL Labs and/or images reviewed: Labs reviewed by me, Image(s) reviewed by me Problem List/Assessment/Plan Problem List/Assessment/Plan Dizziness rule out orthostatic hypotension Likely autonomic neuropathy Fall and head trauma, r/.o ICH Orthostatic hypotension likely secondary to cystitis Acute cystitis -IV NS 75cc/hr -IV ceftriaxone starting 01/03 -urine culture pending - Head ct pending HIV positive Noncompliant Pancytopenia likely secondary to HIV -patient last took Biktarvy 2 months back -CD4/CD8 count pending -ID Dr. Wood consulted History of esophageal stricture status post dilatation - EGD done in February 2024 Insomnia -Trazodone Protonix daily -Lovenox 40 mg daily Plan discussed with patient in which all questions have been answered Goals of care discussed with patient for more than 20 minutes, full code status Case discussed with Dr. King Plan discussed with: Patient My Orders My Orders Orders - JOEY ROSS RESIDENT Procedure Category Date Status Time * Infectious [place]- Dr. MADSEN 01/03/25 Transmitted Nina 12:30 Orthostatic Vital ORDERS 01/03/25 Transmitted Signs 14:47 Ceftriaxone 1gm/50ml PHA 01/04/25 In Process D5w (Rocephin) 09:00 Blood Culture LUIS MANUEL 01/03/25 In Process 14:47 Stool Wbc LAB 01/03/25 Logged 14:47 Stool Bacterial LUIS MANUEL 01/03/25 Logged Culture 14:47 Stool Occult Blood LAB 01/03/25 Logged 14:47 Acetaminophen Tab Or PHA 01/03/25 In Process Cap (Tylenol Tablet 15:00 Hydrocodone-Acet PHA 01/03/25 In Process 5/325mg Tab ([place] 15:00 Communication Order ORDERS 01/03/25 Transmitted 14:47 Morphine Sulfate PHA 01/03/25 In Process Injection 15:45 JOEY ROSS RESIDENT Jan 03, 2025 18:32
[2025-01-03] MEDS: SODIUM CHLORIDE 0.9% 1,000 ML IV SCH (19:16)
[2025-01-03 21:14] LABS: Potassium 3.9 mmol/L (3.5-5.1); Sodium 142 mmol/L (136-145)
[2025-01-03 21:15] LABS: Anion Gap 8 (5-15); Carbon Dioxide 23 mmol/L (20-31)
[2025-01-03 21:16] LABS: Calcium 8.9 mg/dL (8.7-10.4)
[2025-01-03 21:20] LABS: Glucose 77 mg/dL (74-106)
[2025-01-03 21:21] LABS: Blood Urea Nitrogen 17 mg/dL (9-23); Chloride 111 mmol/L (98-107)
[2025-01-03] MEDS: traZODone HCL 50 MG TAB PO SCH (21:45)
[2025-01-04] MEDS: PANTOPRAZOLE 40 MG TAB PO SCH (05:56)
[2025-01-04 08:00] VITALS: PULSE 78; O2SAT 91
[2025-01-04 09:00] VITALS: BP 107/59; PULSE 78; RESP 18; TEMP 97.6; O2SAT 91
[2025-01-04 09:07] LABS: Basos 1 % (Not Estab.); Eos 12 % (Not Estab.); Eos (Absolute) 0.5 x10E3/uL (0.0-0.4); Hematocrit 30.3 % (37.5-51.0); Hematology Comments: Note: (.); Hemoglobin 9.8 g/dL (13.0-17.7); Immature Granulocytes (Abs) 0 x10E3/uL (0.0-0.1); Lymphs 18 % (Not Estab.); Lymphs (Absolute) 0.8 x10E3/uL (0.7-3.1); MCH 28.2 pg (26.6-33.0); MCHC 32.3 g/dL (31.5-35.7); MCV 87 fL (79-97); Monocytes 10 % (Not Estab.); Monocytes (Absolute) 0.4 x10E3/uL (0.1-0.9); Neutrophils 59 % (Not Estab.); Neutrophils (Absolute) 2.5 x10E3/uL (1.4-7.0); Platelets 112 x10E3/uL (150-450); RBC 3.48 x10E6/uL (4.14-5.80); RDW 16.2 % (11.6-15.4); WBC 4.2 x10E3/uL (3.4-10.8)
[2025-01-04] MEDS: cefTRIAXone 1GM/50ML D5W 50 ML IV SCH (09:34)
[2025-01-04 12:07] LABS: % CD 4 Pos Lymph 3.1 % (30.8-58.5); % CD 8 Pos Lymph 40.1 % (12.0-35.5); Absolute CD 4 Helper 25 /uL (359-1519); CD4/CD8 Ratio 0.08 (0.92-3.72)
[2025-01-04 12:34] VITALS: BP 106/67; PULSE 96; RESP 20; TEMP 98.6; O2SAT 92
--- NOTE | 2025-01-04 15:43 | DVHPNRES ---
Progress Note Date Seen: Jan 04, 2025 Resident Creating Document: JAMEL MARS RESIDENT Medical Necessity Reason Pt with a Central, PICC or Fol: No Subjective Review of Systems patient seen and examined at the bedside. Reports dizziness on standing up from the bed. Reports fever and chills for the past days. UA shows UTI. Orthostatic Vital Positive. Objective vital signs Vital Sign Date Time Temp Pulse Resp B/P (MAP) Pulse Ox O2 Delivery O2 Flow Rate FiO2 01/04/25 12:34 98.6 96 20 106/67 (80) 92 98.6 01/04/25 08:00 Room Air* 0 21 Total Intake and Output 01/03/25 01/03/25 01/04/25 15:00 23:00 07:00 Intake Total 525 ml 600 ml Output Total 725 ml 800 ml Balance -200 ml -200 ml medications Current Medications Medications Dose Ordered Sig/Farzad Route Start Time Stop Time Status Last Admin Dose Admin Pantoprazole Sodium 40 mg DAILY@0600 PO 01/04/25 06:00 01/04/25 05:56 40 MG Enoxaparin Sodium 40 mg DAILY SC 01/03/25 10:00 01/04/25 09:34 40 MG Ceftriaxone Sodium 50 ml @ 100 mls/hr DAILY@09 IV 01/04/25 09:00 01/04/25 09:34 100 MLS/HR Acetaminophen 500 mg Q4HPRN PRN PO 01/03/25 15:00 Acetaminophen/ Hydrocodone Bitart 1 tab Q4HPRN PRN PO 01/03/25 15:00 Morphine Sulfate 1 mg Q4HPRN PRN IV 01/03/25 15:45 Trazodone HCl 50 mg HS PO 01/03/25 22:00 01/03/25 21:45 50 MG Sodium Chloride 1,000 ml @ 75 mls/hr [id number] IV 01/03/25 18:30 01/04/25 07:50 75 MLS/HR Examination General: Well-built, afebrile, palor, mucosae are moist Cardiovascular: Regular S1 and S2. No murmurs, gallops or rubs. No JVD elevation. No pedal edema Respiratory: Normal B/L air entry on room air. Clear lung sounds on auscultation Abdomen: Soft, nontender, nondistended, normoactive bowel sounds, no rebound tenderness, no organomegaly, no masses Genitourinary: Deferred MSK/skin: Mobilizes 4 limbs. Skin is dry and warm Neurological: No motor, no sensitive deficits, normal speech. Pupils are isocoric and reactive. Psych/Mental Status: A/Ox3 laboratory and microbiology Laboratory Tests 01/03/25 20:52 01/03/25 09:05 Test 01/03/25 20:52 Range/Units Serum Glucose 77 74-106 mg/dL Microbiology Date/Time Source Procedure Growth Status 01/03/25 15:15 Voided Urine Urine Culture - Preliminary Resulted Problem List/Assessment/Plan Problem List/Assessment/Plan Dizziness rule out orthostatic hypotension Likely autonomic neuropathy Fall and head trauma, r/.o ICH Orthostatic hypotension likely secondary to cystitis Acute cystitis -IV NS 75cc/hr -IV ceftriaxone starting 01/03 -urine culture pending - Head ct pending HIV positive Noncompliant Pancytopenia likely secondary to HIV -patient last took Biktarvy 2 months back -CD4/CD8 count pending -ID Dr. Wood consulted History of esophageal stricture status post dilatation - EGD done in February 2024 Insomnia -Trazodone Protonix daily -Lovenox 40 mg daily Plan discussed with patient in which all questions have been answered Goals of care discussed with patient for more than 21 minutes, full code status Case discussed with Dr. Strickland. Plan discussed with: Patient Date of Service: Jan 04, 2025 Billing Provider: SAROJ STRICKLAND MD Common Visit Codes: [id number] INP/OBS CARE(HIGH) JAMEL MARS RESIDENT Jan 04, 2025 15:43 SAROJ STRICKLAND MD Jan 04, 2025 22:21
[2025-01-04 16:37] VITALS: BP 108/68; PULSE 89; RESP 20; TEMP 98.6; O2SAT 98
--- NOTE | 2025-01-04 17:07 | DVH ---
CT HEAD WITHOUT CONTRAST INDICATION: RULE OUT BLEEDING EXAM DATE: 01/04/2025 12:19 PM COMPARISON: CT HEAD WITHOUT CONTRAST on DOS: 09/22/24, CT HEAD WITHOUT CONTRAST on DOS: 02/28/24 RADIATION DOSE: CTDIvol: 62 mGy, DLP: 1228 mGy*cm PROCEDURE: CT scans of the head were obtained from the vertex to the skull base. Sagittal and coronal reconstructions were provided. All CT scans at this medical facility are performed using dose modulation techniques as appropriate t o a performed exam including the following: Automated exposure control was utilized; adjustment of th e MA and/or KV according to patient size; and use of iterative reconstruction technique. FINDINGS: There is sulcal and ventricular prominence. The brainshows normal morphology and sunshine-whi te matter differentiation, without intracranial hemorrhage, extra-axial fluid collection, mass effect or acute large vessel infarct. The ventricles are normal in size. The basal cisterns are patent. The skull and visible facial bones are intact. The paranasal sinuses are opacities. The mastoid air cell s and middle ear cavities are well-aerated. The soft tissues of the scalp are unremarkable. IMPRESSION: No acute intracranial abnormality.
--- NOTE | 2025-01-04 20:01 | DVHINCON2 ---
Date of service: Jan 04, 2025 Referring Physician resident Nicho Heaton Reason for Consultation HIV History of Present Illness Patient is a 64-year-old male with a past medical history of HIV diagnosed in 1983, noncompliant visit medication for the last 2 months presented to the ED with a chief complaint of generalized weakness and dizziness. Patient reports that since the last month and a half he has been having dizz iness and feels weak when tries to get up from sitting position to standing and can not stand for a long period of time. He has had about 6 falls in this period of time but does not report hitting his head. Reports about 10 lb weight loss in the last 2 months. Patient also reports of decreased appetite but denies difficulty swallowing. He denies any fevers, chills, night sweats. He denies any chest pain, shortness of breath, hemoptysis, nausea or vomiting, abdominal pain, diarrhea or constipation, dysuria, frequency. He is old patient of mine but he lost to follow up. No recent CD4/ viral load. He is very non cooperative in hospital according to residents and RNs He was on Biktarvy in the past. Past Medical History Past medical history: HIV, on Biktarvy but has not been taking it since last 2 months Past Surgical History Past surgical history: None Family History: Cardiovascular disease G8 MOTHER G8 FATHER Cerebrovascular accident (CVA) Hypertension Parents Social History Social history: Denies smoking, alcohol, drug use Allergies: Coded Allergies: NO KNOWN ALLERGIES (Unverified , 02/21/22) Home Meds Active Scripts Sulfamethoxazole-Trimethoprim (Bactrim) 1 Tab Tab, 1 TAB PO DAILY, #30 TAB Prov:CHEY QUESADA MD 04/02/24 Xwtlxmuttyq-Qyogtqctsunoc-Arao (Biktarvy 50-200-25 mg) 1 Tab Tab, 1 TAB PO DAILY for 30 Days, #30 TAB Prov:CHEY QUESADA MD 04/02/24 Reported Medications Hydrocodone-Acetaminophen (Hydrocodone/Acetaminophen 5-325 mg) 1 Tab Tab, 1 TAB PO Q4HP PRN for PAIN SCALE 1 THRU 6, TAB 03/27/24 Polyethylene Glycol 3350 (Miralax) 17 Gm Pow, 17 GM PO DAILY, POW 03/27/24 Pantoprazole Sodium Sesquihydr (Pantoprazole Sodium) 40 Mg Tab, 1 TAB PO BID 03/27/24 Current Medications Current Medications Medications (Trade) Dose Ordered Sig/Farzad Route PRN Reason Start Time Stop Time Status Last Admin Pantoprazole Sodium (Protonix Tablet) 40 mg DAILY@0600 PO 01/04/25 06:00 01/04/25 05:56 Ceftriaxone Sodium 50 ml @ 100 mls/hr DAILY@09 IV 01/04/25 09:00 01/04/25 09:34 Trazodone HCl (Desyrel) 50 mg HS PO 01/03/25 22:00 01/03/25 21:45 Review of Systems General: Patient reports of weakness in the bilateral lower extremities with dizziness when he tries to stand from a sitting or lying down position. Positive for weight loss. HEENT: No Sinus pain, headache, vision changes or sore throat Respiratory: No Cough, dyspnea, sputum production Cardiovascular: No Chest pain, palpitations or leg edema Gastrointestinal: No Nausea, vomiting, diarrhea, abdominal pain Genitourinary: No Dysuria, urinary frequency, hematuria, pelvic pain Skin: No Rashes, ulcers, abscesses, redness or swelling Musculoskeletal: No Joint pain, muscle pain or swelling Neurologic: No Altered mental status, headaches or focal neurological deficits Psychiatric: No Anxiety, depression or confusion Vital Signs Vital Signs Date Time Temp Pulse Resp B/P (MAP) Pulse Ox O2 Delivery O2 Flow Rate FiO2 01/04/25 16:37 98.6 89 20 108/68 (81) 98 98.6 01/04/25 08:00 Room Air* 0 21 Physical Exam Gen - No pallor, no icterus, no cyanosis, no clubbing, no LAD, no edema . Skin - Patients skin is warm and dry. HEENT - normocephalic, atraumatic, dry mucous membranes. Neck - full ROM, no LAD, no JVD Pulmonary - B/L equal breath sounds, no crackles, no wheezing, no stridor. cardiovascular - Regular S1,S2 heard, no added sounds, no murmurs heard. GI - soft, nontender abdomen. no hepatosplenomegaly. Bowel sounds normoactive Neurological - Patient is A/O X 3 . Bilateral upper extremity strength 5/5, bilateral lower extremity strength 4/5, no facial droop, normal speech, no tremor, no sensory deficiets. Labs/Diagnostic Data Labs Test 01/03/25 20:52 01/03/25 15:55 01/03/25 09:05 01/03/25 07:27 Range/Units Sodium Level 142 136-145 mmol/L Potassium Level 3.9 3.5-5.1 mmol/L Chloride Level 111 H 98-107 mmol/L Carbon Dioxide Level 23 20-31 mmol/L Anion Gap 8 5-15 Blood Urea Nitrogen 17 9-23 mg/dL Creatinine 1.06 0.700-1.30 mg/dL Glomerular Filtration Rate Calc 79 >90 mL/min BUN/Creatinine Ratio 16.0 10.0-20.0 Serum Glucose 77 74-106 mg/dL Calcium Level 8.9 8.7-10.4 mg/dL Urine Color Light-orange Yellow Urine Clarity Turbid H Clear Urine pH 7.0 5.0-9.0 Urine Specific [place] 1.015 1.001-1.035 Urine Protein 1+ H Negative Urine Ketones Negative Negative Urine Blood 3+ H Negative /uL Urine Nitrite 2+ H Negative Urine Bilirubin Negative Negative Urine Urobilinogen Normal Negative mg/dL Urine Leukocyte Esterase 3+ Negative /uL Urine RBC 26 0 - 3 /hpf Urine Microscopic WBC 74 H 0-3 /HPF Urine Squamous Epithelial Cells Few <5 /hpf Urine Bacteria Few H None Seen /hpf Urine Mucus Few None Seen Urine Glucose Normal Normal mg/dL Urine Opiates Screen Neg NEGATIVE Urine Fentanyl Screen Neg NEGATIVE Urine Barbiturates Screen Neg NEGATIVE Urine Phencyclidine Screen Neg NEGATIVE Urine Amphetamines Screen Pos NEGATIVE Urine Benzodiazepines Screen Neg NEGATIVE Urine Cocaine Screen Neg NEGATIVE Urine Cannabinoids Screen Neg NEGATIVE White Blood Count 4.2 3.4-10.8 x10E3/uL Red Blood Count 3.48 L 4.14-5.80 x10E6/uL Hemoglobin 9.8 L 13.0-17.7 g/dL Hematocrit 30.3 L 37.5-51.0 % Mean Corpuscular Volume 87 79-97 fL Mean Corpuscular Hemoglobin 28.2 26.6-33.0 pg Mean Corpuscular Hemoglobin Concent 32.3 31.5-35.7 g/dL Red Cell Distribution Width 16.2 H 11.6-15.4 % Platelet Count 112 L 150-450 x10E3/uL Neutrophils (%) (Auto) 59 Not Estab. % Lymphocytes (%) (Auto) 18 Not Estab. % Monocytes (%) (Auto) 10 Not Estab. % Eosinophils (%) (Auto) 12 Not Estab. % Basophils (%) (Auto) 1 Not Estab. % Absolute Neutrophils (auto) 2.5 1.4-7.0 x10E3/uL Absolute Lymphocytes (auto) 0.8 0.7-3.1 x10E3/uL Absolute Monocytes (auto) 0.4 0.1-0.9 x10E3/uL Absolute Eosinophils (auto) 0.5 H 0.0-0.4 x10E3/uL Absolute Basophils (auto) 0.0 0.0-0.2 x10E3/uL Immature Granulocytes % 0 Not Estab. % Immature Granulocytes # 0 0.0-0.1 x10E3/uL Nucleated Red Blood Cells . Immature Blood Cells . Hematology Comments Note: . Percent CD4 Cells 3.1 L 30.8-58.5 % Absolute CD4 Count 25 L 359-1519 /uL T-Lymphocyte CD4/CD8 Ratio 0.08 L 0.92-3.72 Percent CD8 Cells 40.1 H 12.0-35.5 % Absolute CD8 Count 321 109-897 /uL Influenza Type A Antigen Negative Negative Influenza Type B Antigen Negative Negative SARS-CoV-2 Antigen (Rapid) Negative NEGATIVE Test 01/03/25 06:25 01/02/25 23:28 01/02/25 22:25 01/02/25 21:38 Range/Units Mean Platelet Volume 8.7 6.9-10.8 fL Neutrophils # (Auto) 2.3 1.6-8.6 10 ^3/uL Lymphocytes # (Auto) 0.5 0.4-5.4 10 ^3/uL Monocytes # (Auto) 0.2 0-1.3 10 ^3/uL Eosinophils # (Auto) 0.4 0-0.8 10 ^3/uL Basophils # (Auto) 0 0-0.2 10 ^3/uL Prothrombin Time 11.4 9.3-11.8 sec Prothrombin Time INR 1.08 0.9-1.15 Activated Partial Thromboplast Time 27.6 24.5-34.5 SEC Vitamin B12 Level 272 211-911 pg/mL Folic Acid 7.74 >5.38 ng/mL Lactic Acid Level 1.2 0.4-2.0 mmol/L Troponin I High Sensitivity 6 </=54 ng/L Magnesium Level 1.8 1.6-2.6 mg/dL Total Bilirubin 0.3 0.2-1.0 mg/dL Aspartate Amino Transferase (AST) 23 13-40 U/L Alanine Aminotransferase (ALT) 15 7-40 U/L Alkaline Phosphatase 93 46-116 U/L Total Protein 8.5 H 5.7-8.2 g/dL Albumin 3.4 3.2-4.8 g/dL Test 01/02/25 21:30 Range/Units POC Glucose 118 H 70-106 mg/dl Microbiology Date/Time Source Procedure Growth Status 01/03/25 17:11 Blood Blood Culture - Preliminary NO GROWTH AFTER 24 HOURS OF INCUBATION. Resulted 01/03/25 15:15 Voided Urine Urine Culture - Preliminary Resulted Assessment Patient is a 64-year-old male presents to the hospital with: HIV / AIDS Generalized weakness Orthostatic hypotension likely due to autonomic neuropathy Pancytopenia ? Bone marrow suppression History of esophageal stricture status post dilatation [EGD done in February 2024] immunocompromised non compliance Recommendations: has long standing HIV and non compliance, I am assuming he will be in AIDS stage. lost to follow up Restart Biktarvy . patient doesnt have medication, and hospital doesnt carry. Plan is to send a prescription to pharmacy, to be delivered it at bedside. Continue IV Ceftriaxone [Started today] Cd4 count pending Blood culture preliminary showed no growth Urine culture preliminary showed young colonies Influenza panel and COVID-[address] chest without contrast : no focal consolidation ( reviewed personally) Head CT showed No acute intracranial abnormality. patient is difficult, non cooperative. A total of 80 minutes was spent performing this encounter on this date of service. My evaluation of this patient included review of the chart, history, laboratory, imaging findings and discussion with the patient and or family, treatment team placing orders and documenting the plan. Thank you for consultation. Plan discussed with: Patient, Other CAMILA TRISTAN MD Jan 04, 2025 20:01
[2025-01-04 20:53] VITALS: BP 110/70; PULSE 80; RESP 18; TEMP 98.4; O2SAT 99
[2025-01-05 05:43] LABS: Basophils # (auto) 0 10 ^3/uL (0-0.2); Basophils % (auto) 0.6 % (0.0-2.0); Eosinophils # (auto) 0.4 10 ^3/uL (0-0.8); Eosinophils % (auto) 14.2 % (0.0-7.0); Hemoglobin 9.7 g/dL (13.5-17.5); Lymphocytes # (auto) 0.5 10 ^3/uL (0.4-5.4); Lymphocytes % (auto) 18.7 % (10.0-50.0); Mean Corpuscular Hgb Conc. 33.5 g/dL (32.0-36.0); Mean Corpuscular Volume 83.7 fL (80.0-100.0); Monocytes # (auto) 0.3 10 ^3/uL (0-1.3); Monocytes % (auto) 10.6 % (0.0-12.0); Neutrophils # (auto) 1.5 10 ^3/uL (1.6-8.6); Neutrophils % (auto) 55.9 % (37.0-80.0); Nucleated Red Blood Cells % 0.4 %; Platelet Count (auto) 114 10^3/uL (140-450); Red Blood Cells 3.47 10^6/uL (4.5-5.90); Red Cell Distribution Width 16.4 % (11.8-14.3); White Blood Cell 2.6 10^3/uL (4.4-10.8)
[2025-01-05 05:55] LABS: Chloride 107 mmol/L (98-107); Potassium 4.3 mmol/L (3.5-5.1); Sodium 140 mmol/L (136-145)
[2025-01-05 05:56] LABS: Anion Gap 8 (5-15); Calcium 9.1 mg/dL (8.7-10.4); Carbon Dioxide 25 mmol/L (20-31)
[2025-01-05 06:01] LABS: BUN/Creatinine Ratio 16.5 (10.0-20.0); Blood Urea Nitrogen 16 mg/dL (9-23)
[2025-01-05 06:04] LABS: Glucose 81 mg/dL (74-106)
[2025-01-05 08:00] VITALS: PULSE 78; RESP 16; O2SAT 97
[2025-01-05 09:00] VITALS: BP 90/49; PULSE 82; RESP 16; TEMP 97.9; O2SAT 97
[2025-01-05] MEDS: BIKTARVY 50MG-200MG-25MG TABLET PO SCH (10:00)
[2025-01-05] MEDS: SODIUM CHLORIDE 0.9% 1,000 ML IV ONE (10:11)
[2025-01-05 13:00] VITALS: BP 107/69; PULSE 80; RESP 18; TEMP 97.6; O2SAT 99
--- NOTE | 2025-01-05 14:36 | DVHPNRES ---
Progress Note Date Seen: Jan 05, 2025 Resident Creating Document: JOEY ROSS RESIDENT Medical Necessity Reason Pt with a Central, PICC or Fol: No Subjective Review of Systems Patient is a 64-year-old male with a past medical history of HIV diagnosed in 1983, noncompliant visit medication for the last 2 months presented to the ED with a chief complaint of generalized weakness and dizziness. Patient reports that since the last month and a half he has been having dizziness and feels weak when he is tries to get up from sitting position to standing and can not stand for a long period of time. He has had about 6 falls in this period of time but does not report hitting his head. Denies fevers, chills, night sweats. Reports about 10 lb weight loss in the last 2 months. Patient also reports of decreased appetite but denies difficulty swallowing. Patient denies chest pain, shortness of breath, hemoptysis, nausea or vomiting, abdominal pain, diarrhea or constipation, dysuria, frequency. Past medical history: HIV, on Biktarvy but has not been taking it since last 2 months Past surgical history: None Social history: Denies smoking, alcohol, drug use Home medications: Currently denies taking any medication 01/03-patient seen and examined at the bedside. Reports dizziness on standing up from the bed. Reports fever and chills for the past days. UA shows cystitis. Orthostatic ordered. 01/05 - patient seen and examined at the bedside. Reports dizziness. Refusing medications and orthostatic vital signs. CT head unremarkable. Objective vital signs Vital Sign Date Time Temp Pulse Resp B/P (MAP) Pulse Ox O2 Delivery O2 Flow Rate FiO2 01/05/25 09:00 97.9 82 16 90/49 (63) 97 97.9 01/05/25 08:00 Room Air* 0 21 Total Intake and Output 01/04/25 01/04/25 01/05/25 15:00 23:00 07:00 Intake Total 50 ml 800 ml 600 ml Output Total 1200 ml 800 ml Balance 50 ml -400 ml -200 ml medications Current Medications Medications Dose Ordered Sig/Farzad Route Start Time Stop Time Status Last Admin Dose Admin Pantoprazole Sodium 40 mg DAILY@0600 PO 01/04/25 06:00 01/04/25 05:56 40 MG Enoxaparin Sodium 40 mg DAILY SC 01/03/25 10:00 01/04/25 09:34 40 MG Ceftriaxone Sodium 50 ml @ 100 mls/hr DAILY@09 IV 01/04/25 09:00 01/05/25 10:10 100 MLS/HR Acetaminophen 500 mg Q4HPRN PRN PO 01/03/25 15:00 Acetaminophen/ Hydrocodone Bitart 1 tab Q4HPRN PRN PO 01/03/25 15:00 Morphine Sulfate 1 mg Q4HPRN PRN IV 01/03/25 15:45 Trazodone HCl 50 mg HS PO 01/03/25 22:00 01/04/25 21:10 50 MG Sodium Chloride 1,000 ml @ 75 mls/hr [id number] IV 01/03/25 18:30 01/05/25 13:13 75 MLS/HR Patient Own Medication 1 DAILY PO 01/05/25 10:00 Examination Patient lying in bed, in no acute distress General: Well-built, afebrile, palor, mucosae are moist Cardiovascular: Regular S1 and S2. No murmurs, gallops or rubs. No JVD elevation. No pedal edema Respiratory: Normal B/L air entry on room air. Clear lung sounds on auscultation Abdomen: Soft, nontender, nondistended, normoactive bowel sounds, no rebound tenderness, no organomegaly, no masses Genitourinary: Deferred MSK/skin: Mobilizes 4 limbs. Skin is dry and warm Neurological: No motor, no sensitive deficits, normal speech. Pupils are isocoric and reactive. Psych/Mental Status: A/Ox3 laboratory and microbiology Laboratory Tests 01/05/25 05:19 Test 01/05/25 05:19 Range/Units Serum Glucose 81 74-106 mg/dL Microbiology Date/Time Source Procedure Growth Status 01/03/25 17:11 Blood Blood Culture - Preliminary NO GROWTH AFTER 24 HOURS OF INCUBATION. Resulted 01/03/25 15:15 Voided Urine Urine Culture - Final Complete Labs and/or images reviewed: Labs reviewed by me, Image(s) reviewed by me Problem List/Assessment/Plan Problem List/Assessment/Plan Dizziness rule out orthostatic hypotension Likely autonomic neuropathy Fall and head trauma, r/.o ICH Orthostatic hypotension likely secondary to cystitis Acute cystitis -IV NS 75cc/hr -IV ceftriaxone starting 01/03 -urine culture shows greater than 3 colony types, may indicate colonization - Head ct shows no acute intracranial abnormality HIV positive Noncompliant Pancytopenia likely secondary to HIV -patient last took Biktarvy 2 months back, per patient's pharmacy patient last collected medications 2020 -CD4/CD8 count pending -ID Dr. Wood consulted-recommended to resume Biktarvy-pending prescription Amphetamine use disorder -Counseled regarding cessation for more than 20 minutes History of esophageal stricture status post dilatation - EGD done in February 2024 Insomnia -Trazodone Protonix daily -Lovenox 40 mg daily coordinator volunteer services consultation for homelessness and resources Plan discussed with patient in which all questions have been answered Goals of care discussed with patient for more than 20 minutes, full code status Case discussed with Dr. Strickland Plan discussed with: Patient My Orders My Orders Orders - JOEY ROSS Procedure Category Date Status Time Patients Own PHA 01/05/25 In Process Medication 10:00 Date of Service: Jan 05, 2025 Billing Provider: SAROJ STRICKLAND MD Common Visit Codes: [id number] INP/OBS CARE(HIGH) JOEY ROSS Jan 05, 2025 14:36 SAROJ STRICKLAND MD Jan 06, 2025 01:59
[2025-01-05] MEDS: CYANOCOBALAMIN (B-12) 1000 MCG/1 ML VIAL IM ONE (14:50)
[2025-01-05] MEDS: MULTIPLE VITAMINS W/ MINERALS TAB PO ONE (14:50)
[2025-01-05] MEDS: FOLIC ACID 1 MG TAB PO ONE (14:50)
[2025-01-05 17:00] VITALS: BP 130/78; PULSE 93; RESP 19; TEMP 98.1; O2SAT 99
[2025-01-05 21:00] VITALS: BP 111/71; PULSE 91; RESP 18; TEMP 98.3; O2SAT 97
[2025-01-06] VITALS (7 sets, daily range): BP systolic 90–118; BP diastolic 48–73; PULSE 86–95; RESP 15–18; TEMP 37; O2SAT 95–97
[2025-01-06] MEDS: MULTIPLE VITAMINS W/ MINERALS TAB PO SCH (08:01)
[2025-01-06] MEDS: FOLIC ACID 1 MG TAB PO SCH (08:02)
[2025-01-06 09:30] LABS: Hematocrit 28.6 % (41.0-53.0); Hemoglobin 9.5 g/dL (13.5-17.5); Mean Corpuscular Hemoglobin 27.7 pg (28.0-32.0); Mean Corpuscular Hgb Conc. 33.3 g/dL (32.0-36.0); Mean Corpuscular Volume 83.2 fL (80.0-100.0); Platelet Count (auto) 129 10^3/uL (140-450); Red Blood Cells 3.44 10^6/uL (4.5-5.90); Red Cell Distribution Width 16.3 % (11.8-14.3); White Blood Cell 2.4 10^3/uL (4.4-10.8)
[2025-01-06 09:35] LABS: Basophils % (manual) 0 (0.0-2.0); Blast Cells 0; Myelocytes % 0; Promyelocytes % 0; Reactive Lymphocytes 0
[2025-01-06 09:55] LABS: Band Neutrophils % (manual) 1; Eosinophils % (manual) 15 (0-7); Large Platelets FEW; Lymphocytes % (manual) 23 (10.0-50.0); Metamyelocytes % 1; Monocytes % (manual) 7 (0-12); Platelet Estimate Decrea
--- NOTE | 2025-01-06 12:02 | DVHPN2 ---
Progress Note - Dictate Date Seen: Jan 06, 2025 Medical Necessity Reason Pt with a Central, PICC or Fol: No Subjective CT Head unremarkable. vital signs Vital Sign Date Time Temp Pulse Resp B/P (MAP) Pulse Ox O2 Delivery O2 Flow Rate FiO2 01/06/25 09:00 98.6 86 15 94/55 (68) 96 98.6 01/06/25 08:00 Room Air* 0 21 Total Intake and Output 01/05/25 01/05/25 01/06/25 15:00 23:00 07:00 Intake Total 950 ml 400 ml 500 ml Output Total 600 ml 1200 ml Balance 950 ml -200 ml -700 ml medications Current Medications Medications Dose Ordered Sig/Farzad Route Start Time Stop Time Status Last Admin Dose Admin Pantoprazole Sodium 40 mg DAILY@0600 PO 01/04/25 06:00 01/04/25 05:56 40 MG Enoxaparin Sodium 40 mg DAILY SC 01/03/25 10:00 01/04/25 09:34 40 MG Ceftriaxone Sodium 50 ml @ 100 mls/hr DAILY@09 IV 01/04/25 09:00 01/06/25 08:01 100 MLS/HR Acetaminophen 500 mg Q4HPRN PRN PO 01/03/25 15:00 Acetaminophen/ Hydrocodone Bitart 1 tab Q4HPRN PRN PO 01/03/25 15:00 Morphine Sulfate 1 mg Q4HPRN PRN IV 01/03/25 15:45 Trazodone HCl 50 mg HS PO 01/03/25 22:00 01/05/25 21:43 50 MG Sodium Chloride 1,000 ml @ 75 mls/hr [id number] IV 01/03/25 18:30 01/05/25 13:13 75 MLS/HR Patient Own Medication 1 DAILY PO 01/05/25 10:00 Folic Acid 1 mg DAILY PO 01/06/25 10:00 01/06/25 08:02 1 MG Multivitamins/ Minerals 1 tab DAILY PO 01/06/25 10:00 01/06/25 08:01 1 TAB objective Gen - No pallor, no icterus, no cyanosis, no clubbing, no LAD, no edema . Skin - Patients skin is warm and dry. HEENT - normocephalic, atraumatic, dry mucous membranes. Neck - full ROM, no LAD, no JVD Pulmonary - B/L equal breath sounds, no crackles, no wheezing, no stridor. cardiovascular - Regular S1,S2 heard, no added sounds, no murmurs heard. GI - soft, nontender abdomen. no hepatospleenomegaly. Bowel sounds normoactive Neurological - Patient is A/O X 3 . Bilateral upper extremity strength 5/5, bilateral lower extremity strength 4/5, no facial droop, normal speech, no tremor, no sensory deficiets. laboratory and microbiology Laboratory Tests 01/06/25 08:53 01/05/25 05:19 Test 01/05/25 05:19 Range/Units Serum Glucose 81 74-106 mg/dL Assessment/Plan Patient is a 64-year-old male presents to the hospital with: HIV / AIDS Generalized weakness Orthostatic hypotension likely due to autonomic neuropathy Pancytopenia ? Bone marrow suppression History of esophageal stricture status post dilatation [EGD done in February 2024] immunocompromised non compliance Recommendations: Has long standing HIV and non compliance, I am assuming he will be in AIDS stage. lost to follow up Restart Biktarvy. Prescription delivered at bedside Offered Hospice evaluation but patient refused Recommended Outpatient Follow up with ID for continue care. PCP follow up Continue IV Ceftriaxone Cd4 count is 25 Amphetamine screen is positive Blood culture preliminary showed no growth Urine culture preliminary showed young colonies Influenza panel and COVID-[address] chest without contrast : no focal consolidation ( reviewed personally) Head CT showed No acute intracranial abnormality. patient is difficult, non cooperative. Prognosis poor A total of 50 minutes was spent performing this encounter on this date of service. My evaluation of this patient included review of the chart, history, laboratory, imaging findings and discussion with the patient, placing orders and documenting the plan. Thank you for consultation. Dietary Evaluation Review Recommendations by RD: Add Supplement Feedings Comments: 1) Encourage optimal PO intake 2) Advance to regular diet when medicalyl feasible, pending [employer] approval 3) Emphasize the importance of adherence to HIV medication upon discharge 4) Follow-up with infectious disease 5) Continue to monitor I&O, labs, and skin integrity Expected Outcomes/Goals: 1) appetite and labs to improve 2) f/u in 3-5 days Plan discussed with: Patient, Other CAMILA TRISTAN MD Jan 06, 2025 12:02
--- NOTE | 2025-01-06 16:33 | DVHDSRES ---
Discharge Summary Date of Admission Resident Creating Document: JOEY ROSS RESIDENT Jan 02, 2025 at 23:35 Date of Discharge: Jan 06, 2025 Labs/Diagnostic Data: Laboratory Results Test 01/06/25 08:53 01/05/25 05:19 01/03/25 15:55 01/03/25 09:05 White Blood Count 2.4 10^3/uL (4.4-10.8) Red Blood Count 3.44 10^6/uL (4.5-5.90) Hemoglobin 9.5 g/dL (13.5-17.5) Hematocrit 28.6 % (41.0-53.0) Mean Corpuscular Volume 83.2 fL (80.0-100.0) Mean Corpuscular Hemoglobin 27.7 pg (28.0-32.0) Mean Corpuscular Hemoglobin Concent 33.3 g/dL (32.0-36.0) Red Cell Distribution Width 16.3 % (11.8-14.3) Platelet Count 129 10^3/uL (140-450) Mean Platelet Volume 8.4 fL (6.9-10.8) Neutrophils (%) (Auto) % (37.0-80.0) Lymphocytes (%) (Auto) % (10.0-50.0) Monocytes (%) (Auto) % (0.0-12.0) Basophils (%) (Auto) % (0.0-2.0) Neutrophils # (Auto) 10 ^3/uL (1.6-8.6) Lymphocytes # (Auto) 10 ^3/uL (0.4-5.4) Monocytes # (Auto) 10 ^3/uL (0-1.3) Differential Total Cells Counted 100.0 (100) Neutrophils % (Manual) 53 (37.0-80.0) Band Neutrophils % (Manual) 1 Lymphocytes % (Manual) 23 (10.0-50.0) Monocytes % (Manual) 7 (0-12) Eosinophils % (Manual) 15 (0-7) Basophils % (Manual) 0 (0.0-2.0) Metamyelocytes % (manual) 1 Myelocytes % (Manual) 0 Promyelocytes % (Manual) 0 Blast Cells % (Manual) 0 Reactive Lymphocytes 0 Platelet Estimate Decrea Large Platelets Few Eosinophils (%) (Auto) 14.2 % (0.0-7.0) Eosinophils # (Auto) 0.4 10 ^3/uL (0-0.8) Basophils # (Auto) 0 10 ^3/uL (0-0.2) Nucleated Red Blood Cells 0.4 % Sodium Level 140 mmol/L (136-145) Potassium Level 4.3 mmol/L (3.5-5.1) Chloride Level 107 mmol/L (98-107) Carbon Dioxide Level 25 mmol/L (20-31) Anion Gap 8 (5-15) Blood Urea Nitrogen 16 mg/dL (9-23) Creatinine 0.97 mg/dL (0.700-1.30) Glomerular Filtration Rate Calc 88 mL/min (>90) BUN/Creatinine Ratio 16.5 (10.0-20.0) Serum Glucose 81 mg/dL (74-106) Calcium Level 9.1 mg/dL (8.7-10.4) Urine Color Light-orange (Yellow) Urine Clarity Turbid (Clear) Urine pH 7.0 (5.0-9.0) Urine Specific We[place]man 1.015 (1.001-1.035) Urine Protein 1+ (Negative) Urine Ketones Negative (Negative) Urine Blood 3+ /uL (Negative) Urine Nitrite 2+ (Negative) Urine Bilirubin Negative (Negative) Urine Urobilinogen Normal mg/dL (Negative) Urine Leukocyte Esterase 3+ /uL (Negative) Urine RBC 26 /hpf (0 - 3) Urine Microscopic WBC 74 /HPF (0-3) Urine Squamous Epithelial Cells Few /hpf (<5) Urine Bacteria Few /hpf (None Seen) Urine Mucus Few (None Seen) Urine Glucose Normal mg/dL (Normal) Urine Opiates Screen Neg (NEGATIVE) Urine Fentanyl Screen Neg (NEGATIVE) Urine Barbiturates Screen Neg (NEGATIVE) Urine Phencyclidine Screen Neg (NEGATIVE) Urine Amphetamines Screen Pos (NEGATIVE) Urine Benzodiazepines Screen Neg (NEGATIVE) Urine Cocaine Screen Neg (NEGATIVE) Urine Cannabinoids Screen Neg (NEGATIVE) Absolute Neutrophils (auto) 2.5 x10E3/uL (1.4-7.0) Absolute Lymphocytes (auto) 0.8 x10E3/uL (0.7-3.1) Absolute Monocytes (auto) 0.4 x10E3/uL (0.1-0.9) Absolute Eosinophils (auto) 0.5 x10E3/uL (0.0-0.4) Absolute Basophils (auto) 0.0 x10E3/uL (0.0-0.2) Immature Granulocytes % 0 % (Not Estab.) Immature Granulocytes # 0 x10E3/uL (0.0-0.1) Immature Blood Cells (.) Hematology Comments Note: (.) Percent CD4 Cells 3.1 % (30.8-58.5) Absolute CD4 Count 25 /uL (359-1519) T-Lymphocyte CD4/CD8 Ratio 0.08 (0.92-3.72) Percent CD8 Cells 40.1 % (12.0-35.5) Absolute CD8 Count 321 /uL (109-897) Test 01/03/25 07:27 01/03/25 06:25 01/02/25 23:28 01/02/25 22:25 Influenza Type A Antigen Negative (Negative) Influenza Type B Antigen Negative (Negative) SARS-CoV-2 Antigen (Rapid) Negative (NEGATIVE) Prothrombin Time 11.4 sec (9.3-11.8) Prothrombin Time INR 1.08 (0.9-1.15) Activated Partial Thromboplast Time 27.6 SEC (24.5-34.5) Vitamin B12 Level 272 pg/mL (211-911) Folic Acid 7.74 ng/mL (>5.38) Lactic Acid Level 1.2 mmol/L (0.4-2.0) Troponin I High Sensitivity 6 ng/L (</=54) Test 01/02/25 21:38 01/02/25 21:30 Magnesium Level 1.8 mg/dL (1.6-2.6) Total Bilirubin 0.3 mg/dL (0.2-1.0) Aspartate Amino Transferase (AST) 23 U/L (13-40) Alanine Aminotransferase (ALT) 15 U/L (7-40) Alkaline Phosphatase 93 U/L (46-116) Total Protein 8.5 g/dL (5.7-8.2) Albumin 3.4 g/dL (3.2-4.8) POC Glucose 118 mg/dl (70-106) Other Laboratory Tests 01/06/25 08:53 01/05/25 05:19 Brief Hx & Hospital Course: Patient is a 64-year-old male with a past medical history of HIV diagnosed in 1983, noncompliant visit medication for the last 2 months presented to the ED with a chief complaint of generalized weakness and dizziness. Patient reports that since the last month and a half he has been having dizziness and feels weak when he is tries to get up from sitting position to standing and can not stand for a long period of time. He has had about 6 falls in this period of time but does not report hitting his head. Denies fevers, chills, night sweats. Reports about 10 lb weight loss in the last 2 months. Patient also reports of decreased appetite but denies difficulty swallowing. Patient denies chest pain, shortness of breath, hemoptysis, nausea or vomiting, abdominal pain, diarrhea or constipation, dysuria, frequency. UDS positive for amphetamine. Past medical history: HIV, on Biktarvy but has not been taking it since last 2 months Past surgical history: None Social history: Denies smoking, alcohol, drug use Home medications: Currently denies taking any medication Per patient, he has been noncompliant with Biktarvy for the past 2 months. Called pharmacy, last time he picked up his medication was [address] Wood, patient has been noncompliant with her clinic. During the hospitalization, patient was diagnosed with a acute cystitis NS started on IV fluids and IV ceftriaxone which he received from 01/03 till 01/06. Urine culture was showing possible contamination. Head CT was completed which showed no acute intracranial abnormality. CD4 percentage was 3.1, CD4 count 25. CD8% cells 40. ID was consulted and resume Biktarvy. Patient's pharmacy was called in [place] was arranged at bedside. During his stay, patient was noncompliant, refusing medications and care including DVT prophylaxis. Patient was mostly seen sleeping and would ask not to bother him. Patient also refused orthostatic vital testing. 01/06/2025-patient is hemodynamically, clinically stable, medically noncompliant, his discharge medication Biktarvy is arranged at bedside therefore he has been discharged home. Strong recommendations have been made to follow up with the ID, PCP, discharge clinic within 7 days. Patient agreed to discharge planning. Operations or Procedures ORDERING PHYSICIAN: JOEY ROSS RESIDENT PROCEDURE(s): HWOCT - HEAD WITHOUT CONTRAST REASON: RULE OUT BLEEDING ORDER NUMBER(s): [id number], ACCESSION NUMBER(s): [id number] CT HEAD WITHOUT CONTRAST INDICATION: RULE OUT BLEEDING EXAM DATE: 01/04/2025 12:19 PM COMPARISON: CT HEAD WITHOUT CONTRAST on DOS: 09/22/24, CT HEAD WITHOUT CONTRAST on DOS: 02/28/24 RADIATION DOSE: CTDIvol: 62 mGy, DLP: 1228 mGy*cm PROCEDURE: CT scans of the head were obtained from the vertex to the skull base. Sagittal and coronal reconstructions were provided. All CT scans at this medical facility are performed using dose modulation techniques as appropriate to a performed exam including the following: Automated exposure control was utilized; adjustment of the MA and/or KV according to patient size; and use of iterative reconstruction technique. FINDINGS: There is sulcal and ventricular prominence. The brainshows normal morphology and sunshine-white matter differentiation, without intracranial hemorrhage, extra-axial fluid collection, mass effect or acute large vessel infarct. The ventricles are normal in size. The basal cisterns are patent. The skull and visible facial bones are intact. The paranasal sinuses are opacities. The mastoid air cells and middle ear cavities are well-aerated. The soft tissues of the scalp are unremarkable. IMPRESSION: No acute intracranial abnormality. ATED BY: FELICIA CAI MD DICTATED DATE/TIME: 01/04/251704 SIGNED BY: FELICIA CAI MD SIGNED DATE/TIME: 01/04/251704 CC: Condition at Discharge: Fair Final Diagnosis/Problems List Dizziness Likely orthostatic hypotension Likely autonomic neuropathy Fall and head trauma, ruled out ICH Orthostatic hypotension likely secondary to cystitis Acute cystitis HIV positive Noncompliant Pancytopenia likely secondary to HIV Amphetamine use disorder History of esophageal stricture status post dilatation Insomnia Discharge Disposition: Home Discharge Instruct/Medications Diet: Cardiac 2g Na,low cholest Activity: No Restrictions, As Tolerated Follow Up/Referral: Follow up with Infectious Disease on discharge within 7 days Follow up with the discharge clinic within 7 days Follow up with primary care physician within 7 days Medications: Tablet Biktarvy Discharge Statement: "Patient was advised to return to the ER or call 911 if any headaches, dizziness, shortness of breath, chest pain, abdominal pain, bleeding, fevers, or worsening of medical condition. Patient was counseled about treatment plan, medications, possible side effects, patientverbalized understanding. All questions were answered to the best of my ability. This discharge took greater then 30 minutes in planning, reviewing documentation, counseling the patient, and discussing with other team members." ASSESSMENT ASSESSMENT Assessment Dizziness Likely orthostatic hypotension Likely autonomic neuropathy Fall and head trauma, ruled out ICH Orthostatic hypotension likely secondary to cystitis Acute cystitis HIV positive Noncompliant Pancytopenia likely secondary to HIV Amphetamine use disorder History of esophageal stricture status post dilatation Insomnia Date of Service: Jan 06, 2025 Billing Provider: CLAIRE DUNNE MD Common Visit Codes: 34458-ZEB/OBS DISCH DAY >30min JOEY ROSS RESIDENT Jan 06, 2025 16:33 CLAIRE DUNNE MD Jan 06, 2025 22:49
== END 2025-01-06 19:45 | disposition home or self-care (01) | DRG 74 ==
LOC: ER 21:01 → OVERFLOW 23:35 → EAST 01-03 09:32
PROVIDERS: ADMIT Internal Medicine Geriatric Medicine; ATTEND Emergency Medicine
DX: G90.89 Other disorders of autonomic nervous system (principal); N30.00 Acute cystitis without hematuria; D61.818 Other pancytopenia; R65.10 Systemic inflammatory response syndrome (SIRS) of non-infectious origin without acute organ dysfunction; I95.1 Orthostatic hypotension; F15.90 Other stimulant use, unspecified, uncomplicated; S09.90XA Unspecified injury of head, initial encounter; X58.XXXA Exposure to other specified factors, initial encounter; G47.00 Insomnia, unspecified; Z20.822 Contact with and (suspected) exposure to COVID-19; Z91.148 Patient's other noncompliance with medication regimen for other reason; Z79.891 Long term (current) use of opiate analgesic; Z79.899 Other long term (current) drug therapy; Z79.1 Long term (current) use of non-steroidal anti-inflammatories (NSAID); Y93.89 Activity, other specified; Y92.89 Other specified places as the place of occurrence of the external cause; Y99.8 Other external cause status; Z82.3 Family history of stroke; Z82.49 Family history of ischemic heart disease and other diseases of the circulatory system
CPT/HCPCS: 36415; 70450; 71045; 71250; 80048; 80053; 80307; 81001; 82607; 82746; 82962; 83605; 83735; 84484; 85007; 85025; 85027; 85610; 85730; 86360; 87040; 87086; 87426; 87804; 93005; 96360; G0378

== ENCOUNTER 2025-04-08 13:39 | Inpatient (IN) | payer MEDICARE, OTHER ==
[~2025-04-08] VITALS: Ht 193 cm; Wt 86.0 kg
--- NOTE | 2025-04-08 14:39 | DVH ---
Left lower extremity venous duplex Clinical History: dvt, edema Comparison: LT LOWER DVT on DOS: 06/15/22, LLDVT on DOS: 06/15/22, LLDVT on DOS: 02/25/22, LT LOWER DV T on DOS: 02/25/22, CT L TIB FIB WO CONTRAST on DOS: 02/25/22 Findings: Duplex Doppler evaluation of the deep venous system of the left lower extremity from the common femor al vein to the popliteal vein including color Doppler and spectral/pulsed waveform analysis was perfo rmed. The common femoral vein demonstrates appropriate compressibility and waveform variability. There is compressibility/patency of the great saphenous vein at the proximal thigh. The femoral vein demonstrates appropriate compressibility and waveform variability. The deep femoral vein demonstrates appropriate compressibility and waveform variability. The popliteal vein demonstrates appropriate compressibility and waveform variability. There is normal compressibility at the tibioperoneal trunk. Impression: No left femoropopliteal venous thrombosis. Multiple enlarged left inguinal lymph nodes measuring up to 4.3 cm. If clinical concern/symptoms persist or worsen, short-interval follow-up study is suggested.
--- NOTE | 2025-04-08 15:03 | ED.PDOC ---
Musculoskeletal HPI Comments 64 year old patient presents to the ED with a chief complaint of LT foot pain onset 2 weeks. Patient states he has been experiencing LT leg and LT foot pain, swelling, redness for the past 2 days, symptoms have worsened in the past 4 days. Patient came to see PCP at [facility], was advised to come to ED. He is usually able to ambulate with assistance, have not been able to due to pain. PMHx HIV. Denies fever, chills, chest pain, shortness of breath, dizziness, numbness/tingling. No other symptoms or modifying factors present at this time. Chief Complaint: Lower Extremity Time Seen by MD: 14:50 Primary Care Provider: UNKNOWN Reviewed Notes: Medications, Allergies Allergies: Coded Allergies: NO KNOWN ALLERGIES (Unverified , 02/21/22) Home Meds Active Scripts Sulfamethoxazole-Trimethoprim (Bactrim) 1 Tab Tab, 1 TAB PO DAILY, #30 TAB Prov:CHEY QUESADA MD 04/02/24 Fnrqhtluttr-Uambbtgdzextu-Twiu (Biktarvy 50-200-25 mg) 1 Tab Tab, 1 TAB PO DAILY for 30 Days, #30 TAB Prov:CHEY QUESADA MD 04/02/24 Reported Medications Hydrocodone-Acetaminophen (Hydrocodone/Acetaminophen 5-325 mg) 1 Tab Tab, 1 TAB PO Q4HP PRN for PAIN SCALE 1 THRU 6, TAB 03/27/24 Polyethylene Glycol 3350 (Miralax) 17 Gm Pow, 17 GM PO DAILY, POW 03/27/24 Pantoprazole Sodium Sesquihydr (Pantoprazole Sodium) 40 Mg Tab, 1 TAB PO BID 03/27/24 Information Source: Patient Mode of Arrival: Wheelchair Location: Left Extremity Location: Foot, Leg Timing: Weeks Prehospital treatment: None Severity: Moderate Able to Move Extremity: Yes Pain: Moderate Mechanism: Spontaneous Circumstances: Spontaneous Symptoms: Swelling, Pain DVT Risk Factors: NONE Associated signs and symptoms: Swelling, Leg pain, Foot pain Past Medical History PAST MEDICAL HISTORY: HIV Surgical History: Denies all surgeries Family History Family History: Reviewed,noncontributory to illness Social History Smoker: Non-Smoker Alcohol: Denies ETOH Use Drugs: Denies Drug Use Lives In: Home Constitutional: denies: chills, diaphoresis, fatigue, fever, malaise, sweats, weakness, others EENTM: denies: blurred vision, double vision, ear bleeding, ear discharge, ear drainage, ear pain, ear ringing, eye pain, eye redness, hearing loss, mouth pain, mouth swelling, nasal discharge, nose bleeding, nose congestion, nose pain, photophobia, tearing, throat pain, throat swelling, voice changes, others Respiratory: denies: cough, hemoptysis, orthopnea, SOB at rest, shortness of breath, SOB with excertion, stridor, wheezing, others Cardiovascular: denies: chest pain, dizzy spells, diaphoresis, Dyspnea on exertion, edema, irregular heart beat, left arm pain, lightheadedness, palpitations, PND, syncope, others Gastrointestinal: denies: abdomen distended, abdominal pain, blood streaked bowels, constipated, diarrhea, dysphagia, difficulty swallowing, hematemesis, m kevin, nausea, poor appetite, poor fluid intake, rectal bleeding, rectal pain, vomiting, others Genitourinary: denies: burning, dysuria, flank pain, frequency, hematuria, incontinence, penile discharge, penile sore, pain, testicle pain, testicle swelling, urgency, others Neurological: denies: dizziness, fainting, headache, left sided numbness, left sided weakness, numbness, paresthesia, pre-existing deficit, right sided numbness, right sided weakness, seizure, speech problems, tingling, tremors, weakness, others Musculoskeletal: reports: others (LT foot swelling, LT leg swelling); denies: back pain, gout, joint pain, joint swelling, muscle pain, muscle stiffness, neck pain Integumetry: denies: bruises, change in color, change in hair/nails, dryness, laceration, lesions, lumps, rash, wounds, others Allergic/Immunocompromised: denies: Difficulty Healing, Frequent Infections, Hives, Itching, others Hematologic/Lymphatic: denies: anemia, blood clots, easy bleeding, easy bruising, swollen glands, others Endocrine: denies: excessive hunger, excessive sweating, excessive thirst, excessive urination, flushing, intolerance to cold, intolerance to heat, unexplained weight gain, unexplained weight loss, others Psychiatric: denies: anxiety, bipolar disorder, depression, hopeless, panic disorder, schizophrenia, sleepless, suicidal, others All Other Systems: Reviewed and Negative Physical Exam General Appearance: Moderate Distress, Normal HEENT: Normal ENT Inspection, Pharynx Normal, TMs Normal Neck: Full Range of Motion, Non-Tender, Normal, Normal Inspection Respiratory: Chest Non-Tender, Lungs Clear, No Accessory Muscle Use, No Respiratory Distress, Normal Breath Sounds Cardiovascular: No Edema, No JVD, No Murmur, No Gallop, Normal Peripheral Pulses, Regular Rate/Rhythm Breast Exam: Deferred Gastrointestinal: No Organomegaly, Non Tender, No Pulsatile Mass, Normal Bowel Sounds, Soft Genitalia: Deferred Pelvic: Deferred Rectal: Deferred Extremities: No calf tenderness, Normal capillary refill, Normal inspection, Normal range of motion, Non-tender, No pedal edema, Swelling (Left lower extremity) Musculoskeletal : Apperance: Normal Neurologic: Alert, intermediate manager II-XII nml as Tested, No Motor Deficits, Normal Affect, Normal Mood, No Sensory Deficits Cerebellar Function: NOT DONE Reflexes: NOT DONE Skin: Dry, Normal Color, Warm, Wounds (Left lower extremity) Peripheral Pulses: 3+ Radial (R), 3+ Radial (L) Lymphatic: No Adenopathy Was a procedure done? Was a procedure done?: No Differential Diagnosis EXT Differential Diagnosis: Cellulitis, Sprain, Strain X-Ray, Labs, Meds, VS Vital Signs Date Time Temp Pulse Resp B/P (MAP) Pulse Ox O2 Delivery O2 Flow Rate FiO2 04/08/25 13:44 98.0 108 16 103/62 97 98.0 [place] [address] Ph: [phone] DIAGNOSTIC IMAGING Diagnostic Imaging Report : [id number] Signed PATIENT: FOZIA DILLARDACCT: [id number] UNIT: [id number] : 1960 LOC: ER ROOM / BED: / AGE / SEX: 64 / M ADM STATUS: REG ER SERVICE [id number] ORDERING PHYSICIAN: KAUR MAKI MD PROCEDURE(s): LLDVT - LT Lower DVT REASON: dvt ORDER NUMBER(s): [id number], ACCESSION NUMBER(s): [id number] Left lower extremity venous duplex Clinical History: dvt, edema Comparison: LT LOWER DVT on DOS: 06/15/22, LLDVT on DOS: 06/15/22, LLDVT on DOS: 02/25/22, LT LOWER DVT on DOS: 02/25/22, CT L TIB FIB WO CONTRAST on DOS: 02/25/22 Findings: Duplex Doppler evaluation of the deep venous system of the left lower extremity from the common femoral vein to the popliteal vein including color Doppler and spectral/pulsed waveform analysis was performed. The common femoral vein demonstrates appropriate compressibility and waveform variability. There is compressibility/patency of the great saphenous vein at the proximal thigh. The femoral vein demonstrates appropriate compressibility and waveform variability. The deep femoral vein demonstrates appropriate compressibility and waveform variability. The popliteal vein demonstrates appropriate compressibility and waveform variability. There is normal compressibility at the tibioperoneal trunk. Impression: No left femoropopliteal venous thrombosis. Multiple enlarged left inguinal lymph nodes measuring up to 4.3 cm. If clinical concern/symptoms persist or worsen, short-interval follow-up study is suggested. ATED BY: MARKO SALMON MD DICTATED DATE/TIME: 04/08/25 1436 SIGNED BY: MARKO SALMON MD SIGNED DATE/TIME: 04/08/25 1436 CC: Patient alert. Complaining of left lower extremity swelling with redness. Vitals stable. Explained to the patient. DVT study within normal limits. Possible lymphangitis. Cellulitis. Was given Rocephin. Was given clindamycin. Explained to the patient. Continue monitoring. Time of 1ST Reevaluation: 15:20 Reevaluation 1ST: Unchanged Patient Education/Counseling: Diagnosis, Treatment, Prognosis Family Education/Counseling: No Family Present Departure 1 Departure Time of Disposition: 15:36 Impression: Primary Impression: Left leg cellulitis Additional Impression: Lymphangitis Disposition: ADMITTED INPATIENT Admit to: Med Surg Condition: Guarded Critical Care Note Critical Care Time?: No Stability Stability form required: No Heart Score Heart Score: Heart Score Response (Comments) Value History N/A 0 EKG N/A 0 Age N/A 0 Risk Factors N/A 0 Troponin N/A 0 Total 0 I personally scribed for KAUR MAKI MD ([email or web address]) on 04/08/25 at 15:03. Electronically submitted by Marnie Arenas ([email or web address]). KAUR MAKI MD Apr 08, 2025 15:03
--- NOTE | 2025-04-08 15:45 | DVH ---
CHEST RADIOGRAPH Indication: sob Technique: XY CHEST PORTABLE COMPARISON: None FINDINGS: The cardiac silhouette is enlarged. The lungs demonstrate bilateral patchy airspace opacities. The pu lmonary vasculature is prominent. There is no pleural effusion. There is no pneumothorax. IMPRESSION: Cardiomegaly with pulmonary vascular congestion and bilateral patchy airspace opacities.
[2025-04-08 15:53] LABS: Hematocrit 34.2 % (41.0-53.0); Hemoglobin 11.5 g/dL (13.5-17.5); Mean Corpuscular Hemoglobin 29.5 pg (28.0-32.0); Mean Corpuscular Volume 87.9 fL (80.0-100.0); Nucleated Red Blood Cells % 0.4 %
[2025-04-08 16:08] LABS: Alanine Aminotransferase 21 U/L (7-40); Albumin 3.4 g/dL (3.2-4.8); Alkaline Phosphatase 79 U/L (46-116); Anion Gap 11 (5-15); BUN/Creatinine Ratio 18.9 (10.0-20.0); Bilirubin, Total 0.4 mg/dL (0.2-1.0); Blood Urea Nitrogen 23 mg/dL (9-23); Calcium 8.6 mg/dL (8.7-10.4); Carbon Dioxide 21 mmol/L (20-31); Chloride 100 mmol/L (98-107); Glucose 79 mg/dL (74-106); Potassium 3.7 mmol/L (3.5-5.1); Sodium 132 mmol/L (136-145); Total Protein 9.4 g/dL (5.7-8.2)
[2025-04-08] MEDS: CLINDAMYCIN 300MG IV 50 ML IV ONE (16:45)
[2025-04-08] MEDS ORDERED: DOCUSATE SOD 100 MG CAP PO PRN (23:45)
[2025-04-08] MEDS ORDERED: ONDANSETRON HCL 4 MG/2 ML VIAL IV PRN (23:45)
[2025-04-08] MEDS: SODIUM CHLORIDE 0.9% 500 ML IV ONE (23:45)
[2025-04-09] VITALS (9 sets, daily range): BP systolic 97–140; BP diastolic 61–83; PULSE 63–100; RESP 16–20; TEMP 97.7–98.3; O2SAT 93–100
[2025-04-09] MEDS ORDERED: VANCOMYCIN PER PHARMACY 0 MG IV SCH
[2025-04-09] MEDS: VANCOMYCIN 1GM/250ML KIT 250 ML IV ONE
[2025-04-09 04:17] LABS: COVID19 ANTIGEN SOFIA FIA NEGATIVE (NEGATIVE)
[2025-04-09] MEDS: HYDROcodone-ACET 5/325MG TAB PO ONE (06:27)
--- NOTE | 2025-04-09 08:26 | DVHHPRES ---
History of Present Illness Resident Creating Document: CHUCK EVANS RESIDENT History of Present Illness History of Present Illness (HPI): Prasanth Celaya, a 64-year-old male with a known past medical history of HIV, polysubstance abuse, gastritis, duodenal diverticulum presented with complaints of leg swelling and pain that has persisted for the past two weeks. During the consultation, he reported associated symptoms including chills, cough, and shortness of breath. He described the leg pain as sharp, continuous, and rated it as 10 out of 10 in intensity. Notably, he did not identify any specific aggravating or alleviating factors. Due to the severity of his symptoms, he sought care from his primary care provider at [facility] who advised him to proceed to the emergency department for further evaluation. Mr. Celaya typically ambulates with assistance, but the current level of pain has rendered him unable to walk. He denied experiencing fever, chest pain, dizziness, or numbness. Past Medical History (PMH): HIV, polysubstance abuse, gastritis, duodenal divert iculum Past Surgical History (PSH): Denies any past surgical history Family history (FH): Denies any relevant family history EtOH: Patient denies alcohol use Smoking /Vaping: Patient denies smoking Recreational Drugs: Patient admits to marijuana use Residence: Lives alone Home Medications: Biktarvy Allergies: No known allergies PCP: Dr. Mayorga Specialist relevant to admission: Nonrelevant Review of Systems Review of Systems General: patient denies fever, fatigue, weaknes, sweating, any recent changes in appetite and weight HEENT: No headaches, visiual changes, hearing loss, tinnitus, nasal congestion and discharge, and sore throat. Cardiovascular: Denies chest pain, palpitations, dyspnea on exertion, orthopnea, or claudication. Respiratory: No cough, and wheezing. Gastrointestinal: Denies nausea, vomiting, dysphagia, odynophagia, heartburn, abdominal pain, flatulence, bloating, diarrhea, constipation, change in stool, or blood in stool. Genitourinary: No dysuria, hematuria, discharge, frequency, urgency, nocturia, incontinence, and urinary retention. Endocrine: No heat or cold intolerance, polydipsia, polyuria, and polyphagia. Neurological: No dizziness, extremity weakness and numbness, tremors, gait disturbance, seizures, and memory impairment. Psychiatric: Denies depression, anxiety,or insomnia. Musculoskeletal: Complains of pain and swelling in the left leg Skin: No rashes, itching, skin lesion, changes in hair, nail, skin texture and breast. Hematologic/Lymphatic: Denies easy bruising, bleeding tendencies, or lymph node enlargement. Allergies: Coded Allergies: NO KNOWN ALLERGIES (Unverified , 02/21/22) Medications Current Medications Medications Dose Ordered Sig/Farzad Route Start Time Stop Time Status Last Admin Dose Admin Ondansetron HCl 4 mg Q4HP PRN IV 04/08/25 23:45 UNV Docusate Sodium 100 mg BIDPRN PRN PO 04/08/25 23:45 UNV Exam Vital Signs Vital Signs Date Time Temp Pulse Resp B/P (MAP) Pulse Ox O2 Delivery O2 Flow Rate FiO2 04/08/25 23:10 97.9 99 20 92/58 (69) 96 97.9 04/08/25 23:10 Room Air Exam General Appearance: Alert, Oriented X3, Cooperative, No acute distress HEENT: Atraumatic, PERRLA, EOMI, Mucous membrane moist/pink Respiratory: Clear to auscultation, Normal air movement Cardiovascular: Regular rate, Normal S1, Normal S2, No murmurs, no chest wall tenderness Abdominal: Normal bowel sounds, Soft, No tenderness, No hepatospenomegaly, No masses Extremities: Nonpitting edema in left lower limb Skin: Rashes and skin breakdown present in the left lower limb Neuro: Normal gait, Normal speech, Strength at 5/5 X4 ext, Normal tone, Sensation intact, Cranial nerves 3-12 NL, Reflexes 2+ Psych/Mental Status: Mental status NL, Mood NL Labs/Xrays Labs Test 04/08/25 15:40 Range/Units White Blood Count 3.6 L 4.4-10.8 10^3/uL Red Blood Count 3.89 L 4.5-5.90 10^6/uL Hemoglobin 11.5 L 13.5-17.5 g/dL Hematocrit 34.2 L 41.0-53.0 % Mean Corpuscular Volume 87.9 80.0-100.0 fL Mean Corpuscular Hemoglobin 29.5 28.0-32.0 pg Mean Corpuscular Hemoglobin Concent 33.6 32.0-36.0 g/dL Red Cell Distribution Width 16.8 H 11.8-14.3 % Platelet Count 220 140-450 10^3/uL Mean Platelet Volume 7.9 6.9-10.8 fL Neutrophils (%) (Auto) 61.2 37.0-80.0 % Lymphocytes (%) (Auto) 23.8 10.0-50.0 % Monocytes (%) (Auto) 13.1 H 0.0-12.0 % Eosinophils (%) (Auto) 1.6 0.0-7.0 % Basophils (%) (Auto) 0.3 0.0-2.0 % Neutrophils # (Auto) 2.2 1.6-8.6 10 ^3/uL Lymphocytes # (Auto) 0.9 0.4-5.4 10 ^3/uL Monocytes # (Auto) 0.5 0-1.3 10 ^3/uL Eosinophils # (Auto) 0.1 0-0.8 10 ^3/uL Basophils # (Auto) 0 0-0.2 10 ^3/uL Nucleated Red Blood Cells 0.4 % Sodium Level 132 L 136-145 mmol/L Potassium Level 3.7 3.5-5.1 mmol/L Chloride Level 100 98-107 mmol/L Carbon Dioxide Level 21 20-31 mmol/L Anion Gap 11 5-15 Blood Urea Nitrogen 23 9-23 mg/dL Creatinine 1.22 0.700-1.30 mg/dL Glomerular Filtration Rate Calc 67 >90 mL/min BUN/Creatinine Ratio 18.9 10.0-20.0 Serum Glucose 79 74-106 mg/dL Calcium Level 8.6 L 8.7-10.4 mg/dL Total Bilirubin 0.4 0.2-1.0 mg/dL Aspartate Amino Transferase (AST) 48 H 13-40 U/L Alanine Aminotransferase (ALT) 21 7-40 U/L Alkaline Phosphatase 79 46-116 U/L Troponin I High Sensitivity 8 </=54 ng/L B-Type Natriuretic Peptide 37.60 0-100 pg/mL Total Protein 9.4 H 5.7-8.2 g/dL Albumin 3.4 3.2-4.8 g/dL SEPSIS Sepsis Screen Date sepsis recognized/suspect: Apr 08, 2025 Time Sepsis recognized/suspect: 1627 Recent Procedure: No On Antibiotic Therapy: No Respiratory Rate >20: No Heart Rate >90: No Temp<36 C (96.8 F) or >38.3 C: No SBP <90 or MAP <65 mmHG: No New Acute Mental Status Change: No Is the patient on CPAP, BIPAP,: No Physician Orders Sodium Chloride 0.9% (04/08/25 23:45) Admit (04/08/25 23:44) Allergies (04/08/25 23:44) Code Status (04/08/25 23:44) Ondansetron Hcl (Zofran) (04/08/25 23:45) Docusate Sodium Capsule (Colace Capsule) (04/08/25 23:45) Fall Risk Precautions In Place QSHIFT (04/08/25 23:44) Complete Blood Count (04/09/25 04:00) Comprehensive Metabolic Panel (04/09/25 04:00) Condition: Fair (04/08/25 23:44) Vital Signs Date Time Temp Pulse Resp B/P (MAP) Pulse Ox O2 Delivery O2 Flow Rate FiO2 04/08/25 23:10 97.9 99 20 92/58 (69) 96 97.9 04/08/25 23:10 99 20 96 Room Air 04/08/25 22:05 98.0 97 14 98/61 (73) 100 98.0 04/08/25 16:00 108 16 110/68 (82) 97 Laboratory Tests Test 04/08/25 15:40 White Blood Count 3.6 10^3/uL (4.4-10.8) L Medications Medications Dose Ordered Sig/Farzad Route Start Time Stop Time Status Last Admin Dose Admin Ceftriaxone Sodium 50 ml @ 100 mls/hr ONCE ONCE IV 04/08/25 15:15 04/08/25 15:44 DC 04/08/25 16:26 100 MLS/HR Clindamycin Phosphate 50 ml @ 50 mls/hr ONCE ONCE IV 04/08/25 15:15 04/08/25 16:14 DC 04/08/25 17:17 50 MLS/HR Assessment/Plan Assessment/Plan Assessment and plan # Sepsis because of cellulitis in the setting of HIV - judicious IV fluids , Xray shows congestion with cardiomegaly - IV Vancomycin and ceftriaxone - Follow Lactic acid # Left leg cellulitis - IV vancomycin and ceftriaxone - Wound consult - consider CT/MRI if suspicion for osteomyelitis # ?acute on chronic systolic/diastolic HF -Xray shows congestion with cardiomegaly -echo -BNP # Normocytic anemia - Follow CBC # Mild hyponatremia - Follow sodium levels # HIV - Last CD4 200, Continue home medication # Asymptomatic Hypocalcemia - Follow calcium levels # Mild transaminitis - Follow liver function test # History of medication noncompliance # History of Distal esophageal stricture and colonic diverticulum - Outpatient follow-up with PCP after discharge # History of polysubstance abuse # History of suicidal/homicidal ideation - Assess for psychiatric evaluation as outpatient on discharge # History of gastritis - Consider PPI DVT prophylaxis: brisk movement. Barriers to discharge: Medical diagnosis and management in progress. Patient lives with self. Independent for ADL. PCP: Dr. Mayorga Specialist Relevent To Admission: Nonrelevant Case discussed with Dr. Craig. Code Status: Full Code. Complex patient care discussion needed. Spend total 31 minutes for bedside assessment, case discussion and management. Plan discussed with: Patient, Spouse My Orders Orders - CHUCK EVANS RESIDENT Procedure Category Date Status Time Sodium Chloride 0.9% PHA 04/08/25 In Process 23:45 Admit ADMIT 04/08/25 Transmitted 23:44 Allergies ANAIS 04/08/25 In Process 23:44 Code Status CODE 04/08/25 Transmitted 23:44 Ondansetron Hcl PHA 04/08/25 Logged (Zofran) 23:45 Docusate Sodium PHA 04/08/25 Logged Capsule (Colace 23:45 Fall Risk Precautions ANAIS 04/08/[address] 23:44 Complete Blood Count LAB 04/09/25 Verified 04:00 Comprehensive LAB 04/09/25 Verified Metabolic Panel 04:00 Condition: Fair ANAIS 04/08/25 In Process 23:44 Date of Service: Apr 08, 2025 Billing Provider: DICKSON CRAIG MD Common Visit Codes: [id number] INP/OBS CARE (HIGH) Secondary Visit Codes: [id number] CARE PLAN 30 MINUTES CHUCK EVANS RESIDENT Apr 08, 2025 23:54 AVTAR COYLE RESIDENT Apr 09, 2025 08:43
[2025-04-09 11:13] LABS: Hematocrit 27.0 % (41.0-53.0); Hemoglobin 9.1 g/dL (13.5-17.5); Mean Corpuscular Hemoglobin 29.5 pg (28.0-32.0); Mean Corpuscular Volume 87.5 fL (80.0-100.0)
[2025-04-09 11:15] LABS: Alanine Aminotransferase 19 U/L (7-40); Alkaline Phosphatase 64 U/L (46-116); Anion Gap 8 (5-15); BUN/Creatinine Ratio 20.5 (10.0-20.0); Carbon Dioxide 24 mmol/L (20-31); Chloride 104 mmol/L (98-107); Glucose 93 mg/dL (74-106); Potassium 3.6 mmol/L (3.5-5.1)
[2025-04-09 11:17] LABS: Albumin 3.1 g/dL (3.2-4.8); Bilirubin, Total 0.2 mg/dL (0.2-1.0); Blood Urea Nitrogen 24 mg/dL (9-23); Calcium 8.4 mg/dL (8.7-10.4); Sodium 136 mmol/L (136-145); Total Protein 8.4 g/dL (5.7-8.2)
[2025-04-09 11:35] LABS: Total Cells Counted 100.0 (100)
[2025-04-09 11:56] LABS: Hepatitis B Surface Antigen Negative (Negative); Hepatitis C Antibody Negative (Negative)
[2025-04-09 12:26] LABS: Urine Protein, UAD 1+ (Negative)
[2025-04-09] MEDS: IOHEXOL 350 MG/ML 100ML IJ ONE (13:15)
[2025-04-09] MEDS ORDERED: ACETAMINOPHEN 325 MG TAB PO PRN (14:45)
--- NOTE | 2025-04-09 14:49 | DVH ---
CT CT ANGIO LOWER EXTREMITY INDICATION: ulcer in left leg EXAM DATE: 04/09/2025 01:34 PM COMPARISON: US LT LOWER DVT on DOS: 04/08/25, LT LOWER DVT on DOS: 06/15/22, LLDVT on DOS: 06/15/22 RADIATION DOSE: CTDIvol: 8.17 mGy, DLP: 699.01 mGy*cm PROCEDURE: CT angiographic images were obtained of the 8.17 lower extremity. Coronal and sagittal rec onstructions were created. FINDINGS: Right: Popliteal artery: Patent with atherosclerotic calcifications. Anterior tibial artery: Patent with atherosclerotic calcifications. Posterior tibial artery: Patent with atherosclerotic calcifications. Peroneal artery: Patent with atherosclerotic calcifications. Left: Popliteal artery: Patent with atherosclerotic calcifications. Anterior tibial artery: Patent with atherosclerotic calcifications. Posterior tibial artery: Patent with atherosclerotic calcifications. Peroneal artery: Patent with atherosclerotic calcifications. No focal bone abnormality is demonstrated. Early opacification of the left lower extremity veins with moderate subcutaneous edema. IMPRESSION: Patent bilateral arteries of the lower extremity with multivessel run off to each foot. Early opacification of the left lower extremity veins with moderate subcutaneous edema.
--- NOTE | 2025-04-09 14:54 | DVHPNRES ---
Progress Note Date Seen: Apr 09, 2025 Resident Creating Document: NGA QUILES RESIDENT Medical Necessity Reason Pt with a Central, PICC or Fol: No Subjective Review of Systems Mr. Prasanth Ashraf is a 64-year-old male with HIV and past history of polysubstance abuse, gastritis and duodenal diverticulum who presented to the ER with the chief complaint of pain and swelling in his left leg. The patient mentions that he has had pain and swelling of the left leg since 2 weeks which has progressively increased along with redness. The patient states that the leg pain is 10/10 in intensity and continuous. The intensity of the pain is such that the patient is not able to ambulate, which he was able to do before his leg pain and swelling started. He has a history of blood clots in the left leg in 2003 for which he wears compression stocking in his left leg. The patient went to his primary care provider at [facility] who asked him to go to the ED for further evaluation. On evaluation, patient also complains of increased urinary frequency and increased thirst since the last couple of months. CT angiogram of the left lower extremity was ordered. Past medical history: HIV, polysubstance abuse, gastritis, duodenal diverticulum Past surgical history: denies Home medications: Biktarvy, bactrim Social & Personal history: lives alone at home, uses marijuana, denies alcohol use and smoking Allergies: no known allergies Patient seen and examined at bedside. Patient is alert and oriented to time, place person and responding to all questions. Patient is in distress because of the pain in his left leg. Eyes: No Pain, No Vision change, No Conjunctivae inflammation, No Eyelid inflammation, No Redness ENT: No Ear pain, No Ear discharge, No Nose pain, No Nose discharge, No Nose congestion, No Mouth pain, No Mouth swelling, No Throat pain, No Throat swelling Cardiovascular: No Chest Pain, No Palpitations, No Orthopnea, No Paroxysmal No Dyspnea, No Edema, No Lt Headedness Respiratory: No Cough, No Dry, No Shortness of breath, No SOB with exertion, No Wheezing, No Hemoptysis, No Pleuritic Pain, No Sputum Gastrointestinal: No Nausea, No Vomiting, No Abdominal Pain, No Diarrhea, No Constipation, No Melena, No Hematochezia Genitourinary: No Dysuria, urinary Frequency, No Incontinence, No Hematuria, No Retention Objective vital signs Vital Sign Date Time Temp Pulse Resp B/P (MAP) Pulse Ox O2 Delivery O2 Flow Rate FiO2 04/09/25 09:54 97.8 63 17 128/78 (95) 93 97.8 04/09/25 08:00 Room Air* 0 21 Total Intake and Output 04/08/25 04/08/25 04/09/25 15:00 23:00 07:00 Intake Total 50 ml 150 ml Balance 50 ml 150 ml medications Current Medications Medications Dose Ordered Sig/Farzad Route Start Time Stop Time Status Last Admin Dose Admin Ondansetron HCl 4 mg Q4HP PRN IV 04/08/25 23:45 Docusate Sodium 100 mg BIDPRN PRN PO 04/08/25 23:45 Vancomycin HCl 0 ml @ 0 mls/hr UD IV 04/09/25 00:00 Ceftriaxone Sodium 50 ml @ 100 mls/hr DAILY@09 IV 04/10/25 09:00 Vancomycin HCl 100 ml @ 100 mls/hr Q12H IV 04/09/25 14:00 Examination General Appearance: Cooperative. Well developed. Well nourished. NAD Head Exam: Normal inspection Neck Exam: Normal inspection. Non-tender. Normal alignment Pulmonary/Respiratory: Chest non-tender. Clear bilateral breath sounds, no crackles, no wheezing. Cardiovascular/Chest: Regular rate and rhythm. No murmurs. No JVD. Peripheral Pulses: 2+ Radial (R). 2+ Radial (L). 2+ Pedal (R). 2+ Pedal (L) Abdominal Exam: Normal bowel sounds. Soft. normal abdomen, no visible veins, Nontender. No hepatospenomegaly. No masses Lower extremities: 2+ edema in left leg with erythema and scaling of skin, Lt Lower leg noted with edema,erythema with dry skin. 0.8x0.8cm dry intact scab noted to his L 2nd toe. 1.5x7cm intact, reddened, blistered noted on his proximal vega compression stocking liane around the left calf [id number] Neuro/Mental Status: A&O x4. Coherent. Thoughts/Psych: Normal thought pattern. Appropriate mood and affect. Good judgement and insight Skin Exam: Normal inspection. Normal color. Warm. Dry, tightness and swelling left leg laboratory and microbiology Laboratory Tests 04/09/25 10:15 Test 04/09/25 10:15 Range/Units Serum Glucose 93 74-106 mg/dL Microbiology Date/Time Source Procedure Growth Status 04/09/25 07:56 Nose MRSA Screen - Final Complete Labs and/or images reviewed: Labs reviewed by me, Image(s) reviewed by me Problem List/Assessment/Plan Problem List/Assessment/Plan Probable sepsis likely from cellulitis Acute left lower extremity cellulitis - IV fluids - vancomycin and cefepime - monitor labs - wound consult Bicytopenia, leukopenia and normocytic anemia precipitous hemoglobin drop HIV - last CD4 count was 200 - resume Biktarvy in 3 days Acute complicated UTI - urine culture - IV antibiotics same as above - IV fluids Hypocalcemia, asymptomatic - Follow labs history of distal esophageal stricture and colonic diverticulum - patient follow-up with PCP post discharge medication noncompliance history of suicidal / homicidal ideation - assess for psych evaluation if needed hyponatremia, resolved - follow labs history of gastritis - start PPIs PUD prophylaxis: Protonix DVT prophylaxis: Lovenox Goals of care: Full code, discussed for >23 minutes Plan discussed with patient Plan discussed with Dr King Plan discussed with: Patient My Orders My Orders Orders - NGA QUILES RESIDENT Procedure Category Date Status Time Ct Angio Lower CT 04/09/25 Resulted Extremity 11:52 Ceftriaxone 1gm/50ml PHA 04/10/25 In Process (Rocephin) 09:00 Dietary Evaluation Review Comments: Regular diet, Drew BID for wound healing, Ensure HP PO 240ml BID Expected Outcomes/Goals: Increase Wt, improved physical strength Date of Service: Apr 09, 2025 Billing Provider: KORIN CHRISTENSEN MD Common Visit Codes: [id number] INP/OBS CARE(HIGH) NGA QUILES RESIDENT Apr 09, 2025 14:54 SO RYAN RESIDENT Apr 09, 2025 17:01 KORIN CHRISTENSEN MD Apr 20, 2025 17:33
[2025-04-09] MEDS: PANTOPRAZOLE 40 MG TAB PO ONE (15:20)
[2025-04-09] MEDS: VANCOMYCIN 750MG KIT 100 ML IV SCH (15:21)
[2025-04-09] MEDS: MORPHINE SULFATE INJ 2 MG/ml SYRG IV PRN (15:24)
[2025-04-09] MEDS: CEFEPIME 1GM/50ML 50 ML IV SCH (20:51)
[2025-04-10] VITALS (7 sets, daily range): BP systolic 98–103; BP diastolic 55–68; PULSE 86–99; RESP 17–20; TEMP 97.9–98.7; O2SAT 96–100
[2025-04-10] MEDS: PANTOPRAZOLE 40 MG TAB PO SCH (05:48)
[2025-04-10 07:14] LABS: Hematocrit 27.3 % (41.0-53.0); Hemoglobin 9.4 g/dL (13.5-17.5); Mean Corpuscular Hemoglobin 30.6 pg (28.0-32.0); Mean Corpuscular Volume 88.7 fL (80.0-100.0)
[2025-04-10 07:25] LABS: Anion Gap 10 (5-15); Potassium 3.8 mmol/L (3.5-5.1); Sodium 137 mmol/L (136-145)
[2025-04-10 07:31] LABS: BUN/Creatinine Ratio 15.4 (10.0-20.0); Blood Urea Nitrogen 14 mg/dL (9-23); Glucose 95 mg/dL (74-106)
[2025-04-10 07:43] LABS: Calcium 8.1 mg/dL (8.7-10.4); Carbon Dioxide 20 mmol/L (20-31); Chloride 107 mmol/L (98-107)
[2025-04-10] MEDS: HYDROcodone-ACET 5/325MG TAB PO PRN (08:49)
[2025-04-10 08:56] LABS: Total Cells Counted 100.0 (100)
--- NOTE | 2025-04-10 11:49 | DVHPNRES ---
Progress Note Date Seen: Apr 10, 2025 Resident Creating Document: NGA QUILES RESIDENT Medical Necessity Reason Pt with a Central, PICC or Fol: No Subjective Review of Systems Mr. Prasanth Ashraf is a 64-year-old male with HIV and past history of polysubstance abuse, gastritis and duodenal diverticulum who presented to the ER with the chief complaint of pain and swelling in his left leg. The patient mentions that he has had pain and swelling of the left leg since 2 weeks which has progressively increased along with redness. The patient states that the leg pain is 10/10 in intensity and continuous. The intensity of the pain is such that the patient is not able to ambulate, which he was able to do before his leg pain and swelling started. He has a history of blood clots in the left leg in 2003 for which he wears compression stocking in his left leg. The patient went to his primary care provider at [facility] who asked him to go to the ED for further evaluation. On evaluation, patient also complains of increased urinary frequency and increased thirst since the last couple of months. CT angiogram of the left lower extremity was ordered. Past medical history: HIV, polysubstance abuse, gastritis, duodenal diverticulum Past surgical history: denies Home medications: Biktarvy, bactrim Social & Personal history: lives alone at home, uses marijuana, denies alcohol use and smoking Allergies: no known allergies Patient seen and examined at bedside. Patient is alert and oriented to time, place person and responding to all questions. Patient is in distress because of the pain in his left leg. Eyes: No Pain, No Vision change, No Conjunctivae inflammation, No Eyelid inflammation, No Redness ENT: No Ear pain, No Ear discharge, No Nose pain, No Nose discharge, No Nose congestion, No Mouth pain, No Mouth swelling, No Throat pain, No Throat swelling Cardiovascular: No Chest Pain, No Palpitations, No Orthopnea, No Paroxysmal No Dyspnea, No Edema, No Lt Headedness Respiratory: No Cough, No Dry, No Shortness of breath, No SOB with exertion, No Wheezing, No Hemoptysis, No Pleuritic Pain, No Sputum Gastrointestinal: No Nausea, No Vomiting, No Abdominal Pain, No Diarrhea, No Constipation, No Melena, No Hematochezia Genitourinary: No Dysuria, urinary Frequency, No Incontinence, No Hematuria, No Retention 9/11- The patient was seen at bedside today. His white count today was 2.7 and hemoglobin 9.4. His antibiotics were changed to vancomycin and cefepime. CT angiography of the lower extremities showed early opacification of left lower extremity veins with moderate subcutaneous edema. Urinalysis done yesterday was positive for UTI. On evaluation today, the patient complained of pain in his left leg and was given norco for the same. Objective vital signs Vital Sign Date Time Temp Pulse Resp B/P (MAP) Pulse Ox O2 Delivery O2 Flow Rate FiO2 04/10/25 09:00 98.7 96 18 98/55 (69) 100 98.7 04/09/25 20:00 Room Air* 0 21 Total Intake and Output 04/09/25 04/09/25 04/10/25 15:00 23:00 07:00 Intake Total 50 ml 100 ml 1563 ml Output Total 100 ml 500 ml 550 ml Balance -50 ml -400 ml 1013 ml medications Current Medications Medications Dose Ordered Sig/Farzad Route Start Time Stop Time Status Last Admin Dose Admin Ondansetron HCl 4 mg Q4HP PRN IV 04/08/25 23:45 Docusate Sodium 100 mg BIDPRN PRN PO 04/08/25 23:45 Vancomycin HCl 0 ml @ 0 mls/hr UD IV 04/09/25 00:00 Vancomycin HCl 100 ml @ 100 mls/hr Q12H IV 04/09/25 14:00 04/10/25 01:44 100 MLS/HR Morphine Sulfate 1 mg Q4HP PRN IV 04/09/25 14:45 04/09/25 15:24 1 MG Acetaminophen/ Hydrocodone Bitart 1 tab Q4HPRN PRN PO 04/09/25 14:45 04/10/25 08:49 1 TAB Acetaminophen 650 mg Q6HP PRN PO 04/09/25 14:45 Pantoprazole Sodium 40 mg DAILY@0600 PO 04/10/25 06:00 04/10/25 05:48 40 MG Cefepime HCl 50 ml @ 12.5 mls/hr Q8HR IV 04/09/25 22:00 04/10/25 05:47 12.5 MLS/HR Examination General Appearance: Cooperative. Well developed. Well nourished. NAD Head Exam: Normal inspection Neck Exam: Normal inspection. Non-tender. Normal alignment Pulmonary/Respiratory: Chest non-tender. Clear bilateral breath sounds, no crackles, no wheezing. Cardiovascular/Chest: Regular rate and rhythm. No murmurs. No JVD. Peripheral Pulses: 2+ Radial (R). 2+ Radial (L). 2+ Pedal (R). 2+ Pedal (L) Abdominal Exam: Normal bowel sounds. Soft. normal abdomen, no visible veins, Nontender. No hepatospenomegaly. No masses Lower extremities: 2+ edema in left leg with erythema and scaling of skin, Lt Lower leg noted with edema,erythema with dry skin. 0.8x0.8cm dry intact scab noted to his L 2nd toe. 1.5x7cm intact, reddened, blistered noted on his proximal vega compression stocking liane around the left calf [id number] Neuro/Mental Status: A&O x4. Coherent. Thoughts/Psych: Normal thought pattern. Appropriate mood and affect. Good judgement and insight Skin Exam: Normal inspection. Normal color. Warm. Dry, tightness and swelling left leg laboratory and microbiology Laboratory Tests 04/10/25 05:35 Test 04/10/25 05:35 Range/Units Serum Glucose 95 74-106 mg/dL Microbiology Date/Time Source Procedure Growth Status 04/09/25 07:56 Nose MRSA Screen - Final Complete Labs and/or images reviewed: Labs reviewed by me, Image(s) reviewed by me Problem List/Assessment/Plan Problem List/Assessment/Plan Probable sepsis, likely from cellulitis Acute left lower extremity cellulitis - IV fluids - vancomycin and cefepime - monitor labs - wound consult Bicytopenia, leukopenia and normocytic anemia precipitous hemoglobin drop HIV - last CD4 count was 200 - resume Biktarvy in 3 days Acute complicated UTI - urine culture - IV antibiotics same as above - IV fluids Hypocalcemia, asymptomatic - Follow labs history of distal esophageal stricture and colonic diverticulum - patient follow-up with PCP post discharge medication noncompliance history of suicidal / homicidal ideation - assess for psych evaluation if needed hyponatremia, resolved - follow labs history of gastritis - PPIs PUD prophylaxis: Protonix DVT prophylaxis: Lovenox Goals of care: Full code, discussed for >23 minutes Plan discussed with patient Plan discussed with Dr King Plan discussed with: Patient My Orders My Orders Orders - NGA QUILES Procedure Category Date Status Time Ct Angio Lower CT 04/09/25 Resulted Extremity 11:52 Urine Bacterial LUIS MANUEL 04/09/25 In Process Culture 13:59 Pantoprazole Tablet PHA 04/10/25 In Process (Protonix Tablet) 06:00 Dietary Evaluation Review Comments: Regular diet, Drew BID for wound healing, Ensure HP PO 240ml BID Expected Outcomes/Goals: Increase Wt, improved physical strength Date of Service: Apr 10, 2025 Billing Provider: KORIN CHRISTENSEN MD Common Visit Codes: [id number] INP/OBS CARE(HIGH) NGA QUILES RESIDENT Apr 10, 2025 11:49 KORIN CHRISTENSEN MD Apr 20, 2025 17:41
--- NOTE | 2025-04-10 13:54 | DVHSR ---
APPROVED REPORT EXAM: Two-dimensional and M-mode echocardiogram with Doppler and color Doppler. Blood Pressure: 101/68 mmHg INDICATION r/o structural heart disease RISK FACTORS Height: 6'4", Weight: 220 DIMENSIONS LVDd4.5 (3.8-5.7cm)LA (2D)4.6 (1.9-4.0cm)Aortic Root3.4 (2.0-3.7cm) LVDs3.2 (2.5-4.0cm)LA (MM) (1.9-4.0cm)Aortic Cusp Exc2.1 (1.5-2.0cm) EF (%) 56.0 (55-70%)Rt. Atrium4.2 (1.9-4.0cm)Asc. Aorta3.7 cm IVSd1.1 (0.7-1.1cm)RV (D)4.2 (1.8-2.4cm) PWd0.9 (0.7-1.1cm) Mitral Valve MitralMitral Stenosis E wave0.91m/sMV Mean GR.mmHg A wave1.18m/sMV Peak GR.mmHg E/A ratio0.82D MVAcm2 DECEL [id number] 1/2 Timems Aortic Valve Aortic ValveAortic Stenosis V11.23m/Basil Mean GR.5mmHg V21.42m/Basil Peak GR.8mmHg LVOT Diameter2.3 (1.8-2.4cm)Doppler AVA3.60cm2 Pulmonic Valve V21.05m/s Tricuspid Valve TR Velocity2.63m/s [id number] Conclusion lvef 65% mild lvh normal rv function left atrium enlarged no severe valve abnormaliteis noted
[2025-04-11] VITALS (8 sets, daily range): BP systolic 95–123; BP diastolic 61–76; PULSE 84–99; RESP 16–19; TEMP 97.7–98.9; O2SAT 97–100
[2025-04-11 01:04] LABS: Hematocrit 28.2 % (41.0-53.0); Hemoglobin 9.5 g/dL (13.5-17.5); Mean Corpuscular Hemoglobin 30.0 pg (28.0-32.0); Mean Corpuscular Volume 88.9 fL (80.0-100.0)
[2025-04-11 01:25] LABS: Potassium 4.2 mmol/L (3.5-5.1); Sodium 139 mmol/L (136-145)
[2025-04-11 01:26] LABS: Anion Gap 9 (5-15); Carbon Dioxide 22 mmol/L (20-31)
[2025-04-11 01:28] LABS: Calcium 7.6 mg/dL (8.7-10.4); Chloride 108 mmol/L (98-107)
[2025-04-11 01:31] LABS: BUN/Creatinine Ratio 20.0 (10.0-20.0); Blood Urea Nitrogen 18 mg/dL (9-23); Glucose 90 mg/dL (74-106)
[2025-04-11 02:23] LABS: Total Cells Counted 100.0 (100)
--- NOTE | 2025-04-11 15:02 | DVHPNRES ---
Progress Note Date Seen: Apr 11, 2025 Resident Creating Document: NGA QUILES RESIDENT Medical Necessity Reason Pt with a Central, PICC or Fol: No Subjective Review of Systems Mr. Prasanth Ashraf is a 64-year-old male with HIV and past history of polysubstance abuse, gastritis and duodenal diverticulum who presented to the ER with the chief complaint of pain and swelling in his left leg. The patient mentions that he has had pain and swelling of the left leg since 2 weeks which has progressively increased along with redness. The patient states that the leg pain is 10/10 in intensity and continuous. The intensity of the pain is such that the patient is not able to ambulate, which he was able to do before his leg pain and swelling started. He has a history of blood clots in the left leg in 2003 for which he wears compression stocking in his left leg. The patient went to his primary care provider at [facility] who asked him to go to the ED for further evaluation. On evaluation, patient also complains of increased urinary frequency and increased thirst since the last couple of months. CT angiogram of the left lower extremity was ordered. Past medical history: HIV, polysubstance abuse, gastritis, duodenal diverticulum Past surgical history: denies Home medications: Biktarvy, bactrim Social & Personal history: lives alone at home, uses marijuana, denies alcohol use and smoking Allergies: no known allergies Patient seen and examined at bedside. Patient is alert and oriented to time, place person and responding to all questions. Patient is in distress because of the pain in his left leg. Eyes: No Pain, No Vision change, No Conjunctivae inflammation, No Eyelid inflammation, No Redness ENT: No Ear pain, No Ear discharge, No Nose pain, No Nose discharge, No Nose congestion, No Mouth pain, No Mouth swelling, No Throat pain, No Throat swelling Cardiovascular: No Chest Pain, No Palpitations, No Orthopnea, No Paroxysmal No Dyspnea, No Edema, No Lt Headedness Respiratory: No Cough, No Dry, No Shortness of breath, No SOB with exertion, No Wheezing, No Hemoptysis, No Pleuritic Pain, No Sputum Gastrointestinal: No Nausea, No Vomiting, No Abdominal Pain, No Diarrhea, No Constipation, No Melena, No Hematochezia Genitourinary: No Dysuria, urinary Frequency, No Incontinence, No Hematuria, No Retention 9/11- The patient was seen at bedside today. His white count today was 2.7 and hemoglobin 9.4. His antibiotics were changed to vancomycin and cefepime. CT angiography of the lower extremities showed early opacification of left lower extremity veins with moderate subcutaneous edema. Urinalysis done yesterday was positive for UTI. On evaluation today, the patient complained of pain in his left leg and was given norco for the same. 04/11- The patient was seen at bedside today. His white count today was 2.3 and hemoglobin 9.5. We continued with the same management. Patient complained of multiple bowel movements so stool sample was sent for C diff. Patient mentioned that the pain in his left leg has reduced. Consulted with social sciences instructor to arrange Biktarvy by contacting the insurance. Objective vital signs Vital Sign Date Time Temp Pulse Resp B/P (MAP) Pulse Ox O2 Delivery O2 Flow Rate FiO2 04/11/25 12:55 98.4 99 18 98/68 (78) 100 98.4 04/11/25 08:00 Room Air* 0 21 Total Intake and Output 04/10/25 04/10/25 04/11/25 15:00 23:00 07:00 Intake Total 150 ml 830 ml 1550 ml Output Total 800 ml 1050 ml 1100 ml Balance -650 ml -220 ml 450 ml medications Current Medications Medications Dose Ordered Sig/Farzad Route Start Time Stop Time Status Last Admin Dose Admin Ondansetron HCl 4 mg Q4HP PRN IV 04/08/25 23:45 Docusate Sodium 100 mg BIDPRN PRN PO 04/08/25 23:45 Vancomycin HCl 0 ml @ 0 mls/hr UD IV 04/09/25 00:00 Vancomycin HCl 100 ml @ 100 mls/hr Q12H IV 04/09/25 14:00 04/11/25 14:32 100 MLS/HR Morphine Sulfate 1 mg Q4HP PRN IV 04/09/25 14:45 04/11/25 08:11 1 MG Acetaminophen/ Hydrocodone Bitart 1 tab Q4HPRN PRN PO 04/09/25 14:45 04/11/25 14:32 1 TAB Acetaminophen 650 mg Q6HP PRN PO 04/09/25 14:45 Pantoprazole Sodium 40 mg DAILY@0600 PO 04/10/25 06:00 04/11/25 06:01 40 MG Cefepime HCl 50 ml @ 12.5 mls/hr Q8HR IV 04/09/25 22:00 04/11/25 06:03 12.5 MLS/HR Examination General Appearance: Cooperative. Well developed. Well nourished. NAD Head Exam: Normal inspection Neck Exam: Normal inspection. Non-tender. Normal alignment Pulmonary/Respiratory: Chest non-tender. Clear bilateral breath sounds, no crackles, no wheezing. Cardiovascular/Chest: Regular rate and rhythm. No murmurs. No JVD. Peripheral Pulses: 2+ Radial (R). 2+ Radial (L). 2+ Pedal (R). 2+ Pedal (L) Abdominal Exam: Normal bowel sounds. Soft. normal abdomen, no visible veins, Nontender. No hepatospenomegaly. No masses Lower extremities: 2+ edema in left leg with erythema and scaling of skin, Lt Lower leg noted with edema,erythema with dry skin. 0.8x0.8cm dry intact scab noted to his L 2nd toe. 1.5x7cm intact, reddened, blistered noted on his proximal vega compression stocking liane around the left calf [id number] Neuro/Mental Status: A&O x4. Coherent. Thoughts/Psych: Normal thought pattern. Appropriate mood and affect. Good judgement and insight Skin Exam: Normal inspection. Normal color. Warm. Dry, tightness and swelling left leg laboratory and microbiology Laboratory Tests 04/11/25 00:55 Test 04/11/25 00:55 Range/Units Serum Glucose 90 74-106 mg/dL Microbiology Date/Time Source Procedure Growth Status 04/09/25 21:05 Voided Urine Urine Culture - Preliminary Resulted 04/09/25 07:56 Nose MRSA Screen - Final Complete Labs and/or images reviewed: Labs reviewed by me, Image(s) reviewed by me Problem List/Assessment/Plan Problem List/Assessment/Plan Probable sepsis, likely from cellulitis Acute left lower extremity cellulitis - IV fluids - vancomycin and cefepime - monitor labs - wound consult Bicytopenia, leukopenia and normocytic anemia precipitous hemoglobin drop HIV - last CD4 count was 200 - resume Biktarvy in 3 days Acute complicated UTI - urine culture - IV antibiotics same as above - IV fluids Hypocalcemia, asymptomatic - Follow labs History of distal esophageal stricture and colonic diverticulum - patient follow-up with PCP post discharge Medication noncompliance History of suicidal / homicidal ideation - assess for psych evaluation if needed Hyponatremia, resolved - follow labs History of gastritis - start PPIs PUD prophylaxis: Protonix DVT prophylaxis: Lovenox Goals of care: Full code, discussed for >23 minutes Plan discussed with patient Plan discussed with Dr King Plan discussed with: Patient My Orders My Orders Orders - NGA QUILES Procedure Category Date Status Time C-Diff: Collect Next ANAIS 04/11/25 In Process Specimen 11:06 Clostridium Difficile LUIS MANUEL 04/11/25 Logged Toxin 12:48 Dietary Evaluation Review Comments: Regular diet, Drew BID for wound healing, Ensure HP PO 240ml BID Expected Outcomes/Goals: Increase Wt, improved physical strength Date of Service: Apr 11, 2025 Billing Provider: KORIN CHRISTENSEN MD Common Visit Codes: [id number] INP/OBS CARE(HIGH) NGA QUILES RESIDENT Apr 11, 2025 15:02 KORIN CHRISTENSEN MD Apr 20, 2025 17:52
[2025-04-11 17:50] LABS: Hematocrit 30.1 % (41.0-53.0); Hemoglobin 10.0 g/dL (13.5-17.5); Mean Corpuscular Hemoglobin 30.3 pg (28.0-32.0); Mean Corpuscular Volume 91.4 fL (80.0-100.0); Nucleated Red Blood Cells % 0.4 %
[2025-04-11 17:59] LABS: Chloride 104 mmol/L (98-107); Potassium 4.8 mmol/L (3.5-5.1); Sodium 137 mmol/L (136-145)
[2025-04-11 18:00] LABS: Anion Gap 11 (5-15); Carbon Dioxide 22 mmol/L (20-31)
[2025-04-11 18:04] LABS: Calcium 8.1 mg/dL (8.7-10.4)
[2025-04-11 18:05] LABS: BUN/Creatinine Ratio 19.1 (10.0-20.0); Blood Urea Nitrogen 18 mg/dL (9-23); Glucose 104 mg/dL (74-106)
[2025-04-11] MEDS: LOPERAMIDE 1 mg/7.5ml ORAL soln PO ONE (18:08)
[2025-04-12] VITALS (9 sets, daily range): BP systolic 90–121; BP diastolic 50–72; PULSE 81–104; RESP 16–21; TEMP 97.7–99.1; O2SAT 92–100
[2025-04-12 08:00] LABS: Anion Gap 9 (5-15); Carbon Dioxide 22 mmol/L (20-31); Chloride 107 mmol/L (98-107); Potassium 4.5 mmol/L (3.5-5.1); Sodium 138 mmol/L (136-145)
[2025-04-12 08:02] LABS: Calcium 8.3 mg/dL (8.7-10.4)
[2025-04-12 08:03] LABS: Hematocrit 30.1 % (41.0-53.0); Hemoglobin 10.2 g/dL (13.5-17.5); Mean Corpuscular Hemoglobin 29.2 pg (28.0-32.0); Mean Corpuscular Volume 86.7 fL (80.0-100.0); Nucleated Red Blood Cells % 0.5 %
[2025-04-12 08:06] LABS: BUN/Creatinine Ratio 16.3 (10.0-20.0); Blood Urea Nitrogen 15 mg/dL (9-23); Glucose 89 mg/dL (74-106)
[2025-04-12] MEDS ORDERED: LOPERAMIDE HCL 2 MG CAP/TAB PO PRN (10:00)
--- NOTE | 2025-04-12 11:38 | DVHPNRES ---
Progress Note Date Seen: Apr 12, 2025 Resident Creating Document: LYNDON HEAD RESIDENT Medical Necessity Reason Pt with a Central, PICC or Fol: No Subjective Review of Systems Patient was seen today at bedside. Labs and chart reviewed. Patient has leukocytosis and mild anemia. Patient reported diarrhea so many times could not give exact number. Ordered stool for occult blood test, stool for ova and parasite, stool for WBC, stool culture. Objective vital signs Vital Sign Date Time Temp Pulse Resp B/P (MAP) Pulse Ox O2 Delivery O2 Flow Rate FiO2 04/12/25 09:00 98.9 83 17 113/70 (84) 92 98.9 04/11/25 20:00 Room Air* 0 21 Total Intake and Output 04/11/25 04/11/25 04/12/25 15:00 23:00 07:00 Intake Total 50 ml 1205 ml 1130 ml Output Total 700 ml 450 ml Balance 50 ml 505 ml 680 ml medications Current Medications Medications Dose Ordered Sig/Farzad Route Start Time Stop Time Status Last Admin Dose Admin Ondansetron HCl 4 mg Q4HP PRN IV 04/08/25 23:45 Morphine Sulfate 1 mg Q4HP PRN IV 04/09/25 14:45 04/11/25 08:11 1 MG Acetaminophen/ Hydrocodone Bitart 1 tab Q4HPRN PRN PO 04/09/25 14:45 04/11/25 14:32 1 TAB Acetaminophen 650 mg Q6HP PRN PO 04/09/25 14:45 Pantoprazole Sodium 40 mg DAILY@0600 PO 04/10/25 06:00 04/12/25 05:59 40 MG Ceftriaxone Sodium 50 ml @ 100 mls/hr DAILY@09 IV 04/12/25 11:31 Doxycycline Hyclate 100 ml @ 50 mls/hr Q12H IV 04/12/25 11:30 Examination General Appearance: Cooperative. Well developed. Well nourished. NAD Head Exam: Normal inspection Neck Exam: Normal inspection. Non-tender. Normal alignment Pulmonary/Respiratory: Chest non-tender. Clear bilateral breath sounds, no crackles, no wheezing. Cardiovascular/Chest: Regular rate and rhythm. No murmurs. No JVD. Peripheral Pulses: 2+ Radial (R). 2+ Radial (L). 2+ Pedal (R). 2+ Pedal (L) Abdominal Exam: Normal bowel sounds. Soft. normal abdomen, no visible veins, Nontender. No hepatospenomegaly. No masses Lower extremities: 2+ edema in left leg with erythema and scaling of skin, Lt Lower leg noted with edema,erythema with dry skin. 0.8x0.8cm dry intact scab noted to his L 2nd toe. 1.5x7cm intact, reddened, blistered noted on his proximal vega compression stocking liane around the left calf [id number] Neuro/Mental Status: A&O x4. Coherent. Thoughts/Psych: Normal thought pattern. Appropriate mood and affect. Good judgement and insight Skin Exam: Normal inspection. Normal color. Warm. Dry, tightness and swelling left leg laboratory and microbiology Laboratory Tests 04/12/25 06:44 Test 04/12/25 06:44 Range/Units Serum Glucose 89 74-106 mg/dL Microbiology Date/Time Source Procedure Growth Status 04/09/25 21:05 Voided Urine Urine Culture - Final Complete 04/09/25 07:56 Nose MRSA Screen - Final Complete Problem List/Assessment/Plan Problem List/Assessment/Plan Problem List/Assessment/Plan Probable sepsis, likely from cellulitis Acute left lower extremity cellulitis -on 04/12/2020 discontinued vancomycin and cefepime -ordered ceftriaxone 1 g IV daily and doxycycline 100 mg IV b.i.d. - monitor labs - wound consult # acute diarrhea -ordered stool for occult blood test, stool for ova and parasite, stool culture, stool WBC -continue hydration Bicytopenia, leukopenia and normocytic anemia precipitous hemoglobin drop HIV - last CD4 count was 200 - resume Biktarvy in 3 days Acute complicated UTI - urine culture - IV antibiotics same as above - IV fluids Hypocalcemia, asymptomatic - Follow labs history of distal esophageal stricture and colonic diverticulum - patient follow-up with PCP post discharge medication noncompliance history of suicidal / homicidal ideation - assess for psych evaluation if needed hyponatremia, resolved - follow labs history of gastritis - PPIs PUD prophylaxis: Protonix DVT prophylaxis: Lovenox Goals of care: Full code, discussed for >23 minutes Plan discussed with patient Plan discussed with Dr King Plan discussed with: Patient Plan discussed with: Patient, Other (RN) My Orders My Orders Orders - LYNDON HEAD Procedure Category Date Status Time Doxycycline PHA 04/12/25 In Process 100mg/100ml 11:30 Stool Occult Blood LAB 04/12/25 Logged 11:19 Stool Bacterial LUIS MANUEL 04/12/25 Logged Culture 11:19 Stool Wbc LAB 04/12/25 Logged 11:19 Ova & Parasite Exam LUIS MANUEL 04/12/25 Logged 11:19 Ceftriaxone 1gm/50ml PHA 04/12/25 In Process (Rocephin) 11:31 Dietary Evaluation Review Comments: Regular diet, Drew BID for wound healing, Ensure HP PO 240ml BID Expected Outcomes/Goals: Increase Wt, improved physical strength Date of Service: Apr 12, 2025 Billing Provider: KORIN CHRISTENSEN MD Common Visit Codes: [id number] INP/OBS CARE(HIGH) LYNDON HEAD RESIDENT Apr 12, 2025 11:38 KORIN CHRISTENSEN MD Apr 20, 2025 18:20
[2025-04-12] MEDS: DOXYCYCLINE 100MG/100ML 100 ML IV SCH (13:18)
[2025-04-12] MEDS: LOPERAMIDE HCL 2 MG CAP/TAB PO ONE (16:01)
[2025-04-13] VITALS (7 sets, daily range): BP systolic 89–116; BP diastolic 50–77; PULSE 80–103; RESP 18–20; TEMP 96.9–98.8; O2SAT 98–99
[2025-04-13 07:44] LABS: Alanine Aminotransferase 18 U/L (7-40); Alkaline Phosphatase 75 U/L (46-116); Anion Gap 6 (5-15); BUN/Creatinine Ratio 15.5 (10.0-20.0); Blood Urea Nitrogen 15 mg/dL (9-23); Carbon Dioxide 25 mmol/L (20-31); Chloride 106 mmol/L (98-107); Glucose 84 mg/dL (74-106); Magnesium 1.8 mg/dL (1.6-2.6); Potassium 4.5 mmol/L (3.5-5.1); Sodium 137 mmol/L (136-145)
[2025-04-13 07:49] LABS: Albumin 3.1 g/dL (3.2-4.8); Bilirubin, Total 0.2 mg/dL (0.2-1.0); Calcium 8.6 mg/dL (8.7-10.4); Total Protein 8.9 g/dL (5.7-8.2)
[2025-04-13 09:14] LABS: Hematocrit 30.2 % (41.0-53.0); Hemoglobin 10.1 g/dL (13.5-17.5); Mean Corpuscular Hemoglobin 29.0 pg (28.0-32.0); Mean Corpuscular Volume 86.8 fL (80.0-100.0); Nucleated Red Blood Cells % 0.0 %
--- NOTE | 2025-04-13 17:32 | DVHPNRES ---
Progress Note Date Seen: Apr 13, 2025 Resident Creating Document: NGA QUILES RESIDENT Medical Necessity Reason Pt with a Central, PICC or Fol: No Subjective Review of Systems Mr. Prasanth Ashraf is a 64-year-old male with HIV and past history of polysubstance abuse, gastritis and duodenal diverticulum who presented to the ER with the chief complaint of pain and swelling in his left leg. The patient mentions that he has had pain and swelling of the left leg since 2 weeks which has progressively increased along with redness. The patient states that the leg pain is 10/10 in intensity and continuous. The intensity of the pain is such that the patient is not able to ambulate, which he was able to do before his leg pain and swelling started. He has a history of blood clots in the left leg in 2003 for which he wears compression stocking in his left leg. The patient went to his primary care provider at [facility] who asked him to go to the ED for further evaluation. On evaluation, patient also complains of increased urinary frequency and increased thirst since the last couple of months. CT angiogram of the left lower extremity was ordered. Past medical history: HIV, polysubstance abuse, gastritis, duodenal diverticulum Past surgical history: denies Home medications: Biktarvy, bactrim Social & Personal history: lives alone at home, uses marijuana, denies alcohol use and smoking Allergies: no known allergies Patient seen and examined at bedside. Patient is alert and oriented to time, place person and responding to all questions. Patient is in distress because of the pain in his left leg. Eyes: No Pain, No Vision change, No Conjunctivae inflammation, No Eyelid inflammation, No Redness ENT: No Ear pain, No Ear discharge, No Nose pain, No Nose discharge, No Nose congestion, No Mouth pain, No Mouth swelling, No Throat pain, No Throat swelling Cardiovascular: No Chest Pain, No Palpitations, No Orthopnea, No Paroxysmal No Dyspnea, No Edema, No Lt Headedness Respiratory: No Cough, No Dry, No Shortness of breath, No SOB with exertion, No Wheezing, No Hemoptysis, No Pleuritic Pain, No Sputum Gastrointestinal: No Nausea, No Vomiting, No Abdominal Pain, No Diarrhea, No Constipation, No Melena, No Hematochezia Genitourinary: No Dysuria, urinary Frequency, No Incontinence, No Hematuria, No Retention 9/11- The patient was seen at bedside today. His white count today was 2.7 and hemoglobin 9.4. His antibiotics were changed to vancomycin and cefepime. CT angiography of the lower extremities showed early opacification of left lower extremity veins with moderate subcutaneous edema. Urinalysis done yesterday was positive for UTI. On evaluation today, the patient complained of pain in his left leg and was given norco for the same. 04/11- The patient was seen at bedside today. His white count today was 2.3 and hemoglobin 9.5. We continued with the same management. Patient complained of multiple bowel movements so stool sample was sent for C diff. Patient mentioned that the pain in his left leg has reduced. Consulted with foster care social worker to arrange Biktarvy by contacting the insurance. 04/12-Patient reported diarrhea so many times could not give exact number. Ordered stool for occult blood test, stool for ova and parasite, stool for WBC, stool culture. 04/13- patient was seen at bedside today. White count today was 3.7. Stool occult blood was positive. Culture was negative for C diff, Shiga toxin and Campylobacter. PT evaluation was done and the patient was recommended SNF for placement post discharge for PT. The patient still complained of diarrhea and loss of bowel and bladder control. Objective vital signs Vital Sign Date Time Temp Pulse Resp B/P (MAP) Pulse Ox O2 Delivery O2 Flow Rate FiO2 04/13/25 17:00 96.9 98 20 90/59 (69) 99 96.9 04/13/25 08:00 Room Air* 0 21 Total Intake and Output 04/12/25 04/12/25 04/13/25 15:00 23:00 07:00 Intake Total 50 ml 1350 ml 1200 ml Output Total 600 ml 1300 ml Balance 50 ml 750 ml -100 ml medications Current Medications Medications Dose Ordered Sig/Farzad Route Start Time Stop Time Status Last Admin Dose Admin Ondansetron HCl 4 mg Q4HP PRN IV 04/08/25 23:45 Morphine Sulfate 1 mg Q4HP PRN IV 04/09/25 14:45 04/11/25 08:11 1 MG Acetaminophen/ Hydrocodone Bitart 1 tab Q4HPRN PRN PO 04/09/25 14:45 04/12/25 23:08 1 TAB Acetaminophen 650 mg Q6HP PRN PO 04/09/25 14:45 Pantoprazole Sodium 40 mg DAILY@0600 PO 04/10/25 06:00 04/13/25 05:11 40 MG Ceftriaxone Sodium 50 ml @ 100 mls/hr DAILY@09 IV 04/12/25 11:31 04/13/25 09:00 100 MLS/HR Doxycycline Hyclate 100 ml @ 50 mls/hr Q12H IV 04/12/25 11:30 04/13/25 15:19 50 MLS/HR Examination General Appearance: Cooperative. Well developed. Well nourished. NAD Head Exam: Normal inspection Neck Exam: Normal inspection. Non-tender. Normal alignment Pulmonary/Respiratory: Chest non-tender. Clear bilateral breath sounds, no crackles, no wheezing. Cardiovascular/Chest: Regular rate and rhythm. No murmurs. No JVD. Peripheral Pulses: 2+ Radial (R). 2+ Radial (L). 2+ Pedal (R). 2+ Pedal (L) Abdominal Exam: Normal bowel sounds. Soft. normal abdomen, no visible veins, Nontender. No hepatospenomegaly. No masses Lower extremities: 2+ edema in left leg with erythema and scaling of skin, Lt Lower leg noted with edema,erythema with dry skin. 0.8x0.8cm dry intact scab noted to his L 2nd toe. 1.5x7cm intact, reddened, blistered noted on his proximal vega compression stocking liane around the left calf [id number] Neuro/Mental Status: A&O x4. Coherent. Thoughts/Psych: Normal thought pattern. Appropriate mood and affect. Good judgement and insight Skin Exam: Normal inspection. Normal color. Warm. Dry, tightness and swelling left leg laboratory and microbiology laboratory and microbiology Laboratory Tests 04/13/25 08:52 04/13/25 06:37 Test 04/13/25 06:37 Range/Units Serum Glucose 84 74-106 mg/dL Microbiology Date/Time Source Procedure Growth Status 04/13/25 04:00 Stool Stool Culture - Preliminary Resulted 04/13/25 04:00 Stool Shiga Toxin I & II - Final Resulted 04/09/25 21:05 Voided Urine Urine Culture - Final Complete 04/09/25 07:56 Nose MRSA Screen - Final Complete Labs and/or images reviewed: Labs reviewed by me, Image(s) reviewed by me Problem List/Assessment/Plan Problem List/Assessment/Plan Probable sepsis, likely from cellulitis Acute left lower extremity cellulitis - IV fluids - vancomycin and cefepime - monitor labs - wound consult Bicytopenia, leukopenia and normocytic anemia precipitous hemoglobin drop HIV - last CD4 count was 200 - resume Biktarvy Acute complicated UTI - urine culture - IV antibiotics same as above - IV fluids Hypocalcemia, asymptomatic - Follow labs History of distal esophageal stricture and colonic diverticulum - patient follow-up with PCP post discharge Diarrhea with rectal bleed,? CMV colitis -SOB positive Medication noncompliance History of suicidal / homicidal ideation - assess for psych evaluation if needed Hyponatremia, resolved - follow labs History of gastritis - start PPIs PUD prophylaxis: Protonix DVT prophylaxis: Lovenox Goals of care: Full code, discussed for >23 minutes Plan discussed with patient Plan discussed with Dr King Plan discussed with: Patient My Orders My Orders Orders - NGA QUILES RESIDENT Procedure Category Date Status Time Pt Request For Service PT 04/13/25 Logged 11:47 Dietary Evaluation Review Comments: Regular diet, Drew BID for wound healing, Ensure HP PO 240ml BID Expected Outcomes/Goals: Increase Wt, improved physical strength Date of Service: Apr 13, 2025 Billing Provider: KORIN CHRISTENSEN MD Common Visit Codes: [id number] INP/OBS CARE(HIGH) NGA QUILES RESIDENT Apr 13, 2025 17:31 KORIN CHRISTENSEN MD Apr 20, 2025 18:25
[2025-04-14] VITALS (7 sets, daily range): BP systolic 94–114; BP diastolic 60–75; PULSE 89–107; RESP 16–97; TEMP 97.6–98.1; O2SAT 97–100
[2025-04-14 12:13] LABS: Hematocrit 28.1 % (41.0-53.0); Hemoglobin 9.4 g/dL (13.5-17.5); Mean Corpuscular Hemoglobin 29.8 pg (28.0-32.0); Mean Corpuscular Volume 89.0 fL (80.0-100.0); Nucleated Red Blood Cells % 0.2 %
[2025-04-14 12:16] LABS: Chloride 104 mmol/L (98-107); Potassium 4.6 mmol/L (3.5-5.1); Sodium 137 mmol/L (136-145)
[2025-04-14 12:17] LABS: Anion Gap 6 (5-15); Carbon Dioxide 27 mmol/L (20-31)
[2025-04-14 12:18] LABS: Calcium 8.6 mg/dL (8.7-10.4)
[2025-04-14 12:22] LABS: BUN/Creatinine Ratio 15.1 (10.0-20.0); Blood Urea Nitrogen 14 mg/dL (9-23); Glucose 85 mg/dL (74-106)
[2025-04-14] MEDS ORDERED: BICT1TAB PO (16:42)
--- NOTE | 2025-04-14 16:43 | DVHPNRES ---
Progress Note Date Seen: Apr 14, 2025 Resident Creating Document: NGA QUILES RESIDENT Medical Necessity Reason Pt with a Central, PICC or Fol: No Subjective Review of Systems Mr. Prasanth Ashraf is a 64-year-old male with HIV and past history of polysubstance abuse, gastritis and duodenal diverticulum who presented to the ER with the chief complaint of pain and swelling in his left leg. The patient mentions that he has had pain and swelling of the left leg since 2 weeks which has progressively increased along with redness. The patient states that the leg pain is 10/10 in intensity and continuous. The intensity of the pain is such that the patient is not able to ambulate, which he was able to do before his leg pain and swelling started. He has a history of blood clots in the left leg in 2003 for which he wears compression stocking in his left leg. The patient went to his primary care provider at [facility] who asked him to go to the ED for further evaluation. On evaluation, patient also complains of increased urinary frequency and increased thirst since the last couple of months. CT angiogram of the left lower extremity was ordered. Past medical history: HIV, polysubstance abuse, gastritis, duodenal diverticulum Past surgical history: denies Home medications: Biktarvy, bactrim Social & Personal history: lives alone at home, uses marijuana, denies alcohol use and smoking Allergies: no known allergies Patient seen and examined at bedside. Patient is alert and oriented to time, place person and responding to all questions. Patient is in distress because of the pain in his left leg. Eyes: No Pain, No Vision change, No Conjunctivae inflammation, No Eyelid inflammation, No Redness ENT: No Ear pain, No Ear discharge, No Nose pain, No Nose discharge, No Nose congestion, No Mouth pain, No Mouth swelling, No Throat pain, No Throat swelling Cardiovascular: No Chest Pain, No Palpitations, No Orthopnea, No Paroxysmal No Dyspnea, No Edema, No Lt Headedness Respiratory: No Cough, No Dry, No Shortness of breath, No SOB with exertion, No Wheezing, No Hemoptysis, No Pleuritic Pain, No Sputum Gastrointestinal: No Nausea, No Vomiting, No Abdominal Pain, No Diarrhea, No Constipation, No Melena, No Hematochezia Genitourinary: No Dysuria, urinary Frequency, No Incontinence, No Hematuria, No Retention 9/11- The patient was seen at bedside today. His white count today was 2.7 and hemoglobin 9.4. His antibiotics were changed to vancomycin and cefepime. CT angiography of the lower extremities showed early opacification of left lower extremity veins with moderate subcutaneous edema. Urinalysis done yesterday was positive for UTI. On evaluation today, the patient complained of pain in his left leg and was given norco for the same. 04/11- The patient was seen at bedside today. His white count today was 2.3 and hemoglobin 9.5. We continued with the same management. Patient complained of multiple bowel movements so stool sample was sent for C diff. Patient mentioned that the pain in his left leg has reduced. Consulted with social service coordinator to arrange Biktarvy by contacting the insurance. 04/12-Patient reported diarrhea so many times could not give exact number. Ordered stool for occult blood test, stool for ova and parasite, stool for WBC, stool culture. 04/13- patient was seen at bedside today. White count today was 3.7. Stool occult blood was positive. Culture was negative for C diff, Shiga toxin and Campylobacter. PT evaluation was done and the patient was recommended SNF for placement post discharge for PT. The patient still complained of diarrhea and loss of bowel and bladder control. 04/14- The patient was seen at bedside today. White count today was 3.7. [facility] contacted to arrange Biktarvy for the patient on discharge tomorrow. Possible discharge for tomorrow was discussed with the patient and the patient stated that he will not leave the hospital without getting Biktarvy. Patient is okay with being discharged to a SNF. Objective vital signs Vital Sign Date Time Temp Pulse Resp B/P (MAP) Pulse Ox O2 Delivery O2 Flow Rate FiO2 04/14/25 13:00 97.9 100 18 100/65 (77) 99 97.9 04/13/25 20:00 Room Air* 0 21 Total Intake and Output 04/13/25 04/13/25 04/14/25 15:00 23:00 07:00 Intake Total 290 ml 1070 ml 720 ml Output Total 1050 ml 400 ml Balance 290 ml 20 ml 320 ml medications Current Medications Medications Dose Ordered Sig/Farzad Route Start Time Stop Time Status Last Admin Dose Admin Ondansetron HCl 4 mg Q4HP PRN IV 04/08/25 23:45 Morphine Sulfate 1 mg Q4HP PRN IV 04/09/25 14:45 04/11/25 08:11 1 MG Acetaminophen/ Hydrocodone Bitart 1 tab Q4HPRN PRN PO 04/09/25 14:45 04/12/25 23:08 1 TAB Acetaminophen 650 mg Q6HP PRN PO 04/09/25 14:45 Pantoprazole Sodium 40 mg DAILY@0600 PO 04/10/25 06:00 04/14/25 05:35 40 MG Ceftriaxone Sodium 50 ml @ 100 mls/hr DAILY@09 IV 04/12/25 11:31 04/14/25 09:50 100 MLS/HR Doxycycline Hyclate 100 ml @ 50 mls/hr Q12H IV 04/12/25 11:30 04/14/25 13:55 50 MLS/HR Examination General Appearance: Cooperative. Well developed. Well nourished. NAD Head Exam: Normal inspection Neck Exam: Normal inspection. Non-tender. Normal alignment Pulmonary/Respiratory: Chest non-tender. Clear bilateral breath sounds, no crackles, no wheezing. Cardiovascular/Chest: Regular rate and rhythm. No murmurs. No JVD. Peripheral Pulses: 2+ Radial (R). 2+ Radial (L). 2+ Pedal (R). 2+ Pedal (L) Abdominal Exam: Normal bowel sounds. Soft. normal abdomen, no visible veins, Nontender. No hepatospenomegaly. No masses Lower extremities: 2+ edema in left leg with erythema and scaling of skin, Lt Lower leg noted with edema,erythema with dry skin. 0.8x0.8cm dry intact scab noted to his L 2nd toe. 1.5x7cm intact, reddened, blistered noted on his proximal vega compression stocking liane around the left calf [id number] Neuro/Mental Status: A&O x4. Coherent. Thoughts/Psych: Normal thought pattern. Appropriate mood and affect. Good judgement and insight Skin Exam: Normal inspection. Normal color. Warm. Dry, tightness and swelling left leg laboratory and microbiology laboratory and microbiology Laboratory Tests 04/14/25 11:53 Test 04/14/25 11:53 Range/Units Serum Glucose 85 74-106 mg/dL Microbiology Date/Time Source Procedure Growth Status 04/13/25 04:00 Stool Stool Culture - Preliminary Resulted 04/13/25 04:00 Stool Shiga Toxin I & II - Final Resulted 04/09/25 21:05 Voided Urine Urine Culture - Final Complete 04/09/25 07:56 Nose MRSA Screen - Final Complete Labs and/or images reviewed: Labs reviewed by me, Image(s) reviewed by me Problem List/Assessment/Plan Problem List/Assessment/Plan Probable sepsis, likely from cellulitis Acute left lower extremity cellulitis - IV fluids - vancomycin and cefepime - monitor labs - wound consult Bicytopenia, leukopenia and normocytic anemia precipitous hemoglobin drop HIV - last CD4 count was 200 - resume Biktarvy Acute complicated UTI - urine culture - IV antibiotics same as above - IV fluids Hypocalcemia, asymptomatic - Follow labs History of distal esophageal stricture and colonic diverticulum - patient follow-up with PCP post discharge Diarrhea with rectal bleed,? CMV colitis -SOB positive Medication noncompliance History of suicidal / homicidal ideation - assess for psych evaluation if needed Hyponatremia, resolved - follow labs History of gastritis - start PPIs PUD prophylaxis: Protonix DVT prophylaxis: Lovenox Goals of care: Full code, discussed for >23 minutes Plan discussed with patient Plan discussed with Dr Mohr Plan discussed with: Patient My Orders My Orders Orders - NGA QUILES RESIDENT Procedure Category Date Status Time * Strategic Marketing Leader CONS 04/13/25 Transmitted Consult Dietary Evaluation Review Comments: Regular diet, Drew BID for wound healing, Ensure HP PO 240ml BID Expected Outcomes/Goals: Increase Wt, improved physical strength Date of Service: Apr 14, 2025 Billing Provider: CLAIRE MOHR MD Common Visit Codes: [id number] INP/OBS CARE(HIGH) NGA QUILES RESIDENT Apr 14, 2025 16:43 CLAIRE MOHR MD Apr 24, 2025 20:56
[2025-04-15 05:00] VITALS: BP 103/60; PULSE 88; RESP 18; TEMP 98.1; O2SAT 100
[2025-04-15 09:00] VITALS: BP_SYST 148; BP_SYST 90; BP_DIAS 59; BP_DIAS 79; PULSE 82; PULSE 86; RESP 17; RESP 18; TEMP 97.5; TEMP 97.9; O2SAT 100; O2SAT 95
[2025-04-15 17:00] VITALS: BP 103/72; PULSE 87; RESP 15; TEMP 97.8; O2SAT 98
--- NOTE | 2025-04-15 17:48 | DVHPNRES ---
Progress Note Date Seen: Apr 15, 2025 Resident Creating Document: NGA QUILES RESIDENT Medical Necessity Reason Pt with a Central, PICC or Fol: No Subjective Review of Systems Mr. Prasanth Ashraf is a 64-year-old male with HIV and past history of polysubstance abuse, gastritis and duodenal diverticulum who presented to the ER with the chief complaint of pain and swelling in his left leg. The patient mentions that he has had pain and swelling of the left leg since 2 weeks which has progressively increased along with redness. The patient states that the leg pain is 10/10 in intensity and continuous. The intensity of the pain is such that the patient is not able to ambulate, which he was able to do before his leg pain and swelling started. He has a history of blood clots in the left leg in 2003 for which he wears compression stocking in his left leg. The patient went to his primary care provider at [facility] who asked him to go to the ED for further evaluation. On evaluation, patient also complains of increased urinary frequency and increased thirst since the last couple of months. CT angiogram of the left lower extremity was ordered. Past medical history: HIV, polysubstance abuse, gastritis, duodenal diverticulum Past surgical history: denies Home medications: Biktarvy, bactrim Social & Personal history: lives alone at home, uses marijuana, denies alcohol use and smoking Allergies: no known allergies Patient seen and examined at bedside. Patient is alert and oriented to time, place person and responding to all questions. Patient is in distress because of the pain in his left leg. Eyes: No Pain, No Vision change, No Conjunctivae inflammation, No Eyelid inflammation, No Redness ENT: No Ear pain, No Ear discharge, No Nose pain, No Nose discharge, No Nose congestion, No Mouth pain, No Mouth swelling, No Throat pain, No Throat swelling Cardiovascular: No Chest Pain, No Palpitations, No Orthopnea, No Paroxysmal No Dyspnea, No Edema, No Lt Headedness Respiratory: No Cough, No Dry, No Shortness of breath, No SOB with exertion, No Wheezing, No Hemoptysis, No Pleuritic Pain, No Sputum Gastrointestinal: No Nausea, No Vomiting, No Abdominal Pain, No Diarrhea, No Constipation, No Melena, No Hematochezia Genitourinary: No Dysuria, urinary Frequency, No Incontinence, No Hematuria, No Retention 9/11- The patient was seen at bedside today. His white count today was 2.7 and hemoglobin 9.4. His antibiotics were changed to vancomycin and cefepime. CT angiography of the lower extremities showed early opacification of left lower extremity veins with moderate subcutaneous edema. Urinalysis done yesterday was positive for UTI. On evaluation today, the patient complained of pain in his left leg and was given norco for the same. 04/11- The patient was seen at bedside today. His white count today was 2.3 and hemoglobin 9.5. We continued with the same management. Patient complained of multiple bowel movements so stool sample was sent for C diff. Patient mentioned that the pain in his left leg has reduced. Consulted with social media campaign manager to arrange Biktarvy by contacting the insurance. 04/12-Patient reported diarrhea so many times could not give exact number. Ordered stool for occult blood test, stool for ova and parasite, stool for WBC, stool culture. 04/13- patient was seen at bedside today. White count today was 3.7. Stool occult blood was positive. Culture was negative for C diff, Shiga toxin and Campylobacter. PT evaluation was done and the patient was recommended SNF for placement post discharge for PT. The patient still complained of diarrhea and loss of bowel and bladder control. 04/14- The patient was seen at bedside today. White count today was 3.7. [facility] was contacted to arrange Biktarvy for the patient on discharge tomorrow. Possible discharge for tomorrow was discussed with the patient and the patient stated that he will not leave the hospital without getting Biktarvy. Patient is okay with being discharged to a SNF. 04/15- the patient was seen at bedside today. His white count today was 3.7. Ongoing discussion with the pharmacy to arrange Biktarvy for the patient on discharge to the SNF. Patient was started on oral doxycycline and IV doxycycline was discontinued. Objective vital signs Vital Sign Date Time Temp Pulse Resp B/P (MAP) Pulse Ox O2 Delivery O2 Flow Rate FiO2 04/15/25 09:00 97.9 82 18 90/59 (69) 100 97.9 04/15/25 08:00 Room Air* 0 21 Total Intake and Output 04/14/25 04/14/25 04/15/25 15:00 23:00 07:00 Intake Total 150 ml 850 ml 690 ml Output Total 1050 ml 650 ml Balance 150 ml -200 ml 40 ml medications Current Medications Medications Dose Ordered Sig/Farzad Route Start Time Stop Time Status Last Admin Dose Admin Ondansetron HCl 4 mg Q4HP PRN IV 04/08/25 23:45 Morphine Sulfate 1 mg Q4HP PRN IV 04/09/25 14:45 04/11/25 08:11 1 MG Acetaminophen/ Hydrocodone Bitart 1 tab Q4HPRN PRN PO 04/09/25 14:45 04/15/25 15:25 1 TAB Acetaminophen 650 mg Q6HP PRN PO 04/09/25 14:45 Pantoprazole Sodium 40 mg DAILY@0600 PO 04/10/25 06:00 04/15/25 06:05 40 MG Ceftriaxone Sodium 50 ml @ 100 mls/hr DAILY@09 IV 04/12/25 11:31 04/15/25 09:43 100 MLS/HR Doxycycline Monohydrate 100 mg Q12HR PO 04/15/25 22:00 Examination General Appearance: Cooperative. Well developed. Well nourished. NAD Head Exam: Normal inspection Neck Exam: Normal inspection. Non-tender. Normal alignment Pulmonary/Respiratory: Chest non-tender. Clear bilateral breath sounds, no crackles, no wheezing. Cardiovascular/Chest: Regular rate and rhythm. No murmurs. No JVD. Peripheral Pulses: 2+ Radial (R). 2+ Radial (L). 2+ Pedal (R). 2+ Pedal (L) Abdominal Exam: Normal bowel sounds. Soft. normal abdomen, no visible veins, Nontender. No hepatospenomegaly. No masses Lower extremities: 2+ edema in left leg with erythema and scaling of skin, Lt Lower leg noted with edema,erythema with dry skin. 0.8x0.8cm dry intact scab noted to his L 2nd toe. 1.5x7cm intact, reddened, blistered noted on his proximal vega compression stocking liane around the left calf [id number] Neuro/Mental Status: A&O x4. Coherent. Thoughts/Psych: Normal thought pattern. Appropriate mood and affect. Good judgement and insight Skin Exam: Normal inspection. Normal color. Warm. Dry, tightness and swelling left leg laboratory and microbiology laboratory and microbiology Laboratory Tests 04/14/25 11:53 Test 04/14/25 11:53 Range/Units Serum Glucose 85 74-106 mg/dL Microbiology Date/Time Source Procedure Growth Status 04/13/25 04:00 Stool Stool Culture - Preliminary Resulted 04/13/25 04:00 Stool Shiga Toxin I & II - Final Resulted 04/09/25 21:05 Voided Urine Urine Culture - Final Complete 04/09/25 07:56 Nose MRSA Screen - Final Complete Labs and/or images reviewed: Labs reviewed by me, Image(s) reviewed by me Problem List/Assessment/Plan Problem List/Assessment/Plan Probable sepsis, likely from cellulitis Acute left lower extremity cellulitis - IV fluids - vancomycin and cefepime - monitor labs - wound consult Bicytopenia, leukopenia and normocytic anemia precipitous hemoglobin drop HIV - last CD4 count was 200 - resume Biktarvy Acute complicated UTI - urine culture - IV antibiotics same as above - IV fluids Hypocalcemia, asymptomatic - Follow labs History of distal esophageal stricture and colonic diverticulum - patient follow-up with PCP post discharge Diarrhea with rectal bleed,? CMV colitis -SOB positive Medication noncompliance History of suicidal / homicidal ideation - assess for psych evaluation if needed Hyponatremia, resolved - follow labs History of gastritis - start PPIs PUD prophylaxis: Protonix DVT prophylaxis: Lovenox Goals of care: Full code, discussed for >23 minutes Plan discussed with patient Plan discussed with Dr Mohr Plan discussed with: Patient Dietary Evaluation Review Comments: Encourage PO intakes to meet his needs Offer Ensure HP pO 240ml TID Expected Outcomes/Goals: gradual wt gain Date of Service: Apr 15, 2025 Billing Provider: CLAIRE MOHR MD Common Visit Codes: [id number] INP/OBS CARE(HIGH) NGA QUILES RESIDENT Apr 15, 2025 17:48 CLAIRE MOHR MD Apr 24, 2025 20:57
[2025-04-15 20:00] VITALS: PULSE 100; RESP 18; O2SAT 98
[2025-04-15] MEDS: DOXYCYCLINE 100 MG TAB/CAP PO SCH (20:33)
[2025-04-15 21:00] VITALS: BP 102/64; PULSE 88; RESP 18; TEMP 97.9; O2SAT 97
[2025-04-16] VITALS (8 sets, daily range): BP systolic 94–109; BP diastolic 52–72; PULSE 52–100; RESP 18–20; TEMP 97.5–98.3; O2SAT 94–100
[2025-04-16 07:16] LABS: Hematocrit 28.3 % (41.0-53.0); Mean Corpuscular Hemoglobin 30.8 pg (28.0-32.0); Mean Corpuscular Volume 91.0 fL (80.0-100.0); Nucleated Red Blood Cells % 0.1 %
[2025-04-16 07:18] LABS: Anion Gap 9 (5-15); Carbon Dioxide 24 mmol/L (20-31); Chloride 103 mmol/L (98-107); Potassium 4.6 mmol/L (3.5-5.1); Sodium 136 mmol/L (136-145)
[2025-04-16 07:19] LABS: Hemoglobin 9.6 g/dL (13.5-17.5)
[2025-04-16 07:24] LABS: BUN/Creatinine Ratio 18.0 (10.0-20.0); Blood Urea Nitrogen 16 mg/dL (9-23); Glucose 86 mg/dL (74-106)
[2025-04-16 07:29] LABS: Calcium 8.5 mg/dL (8.7-10.4)
[2025-04-16] MEDS ORDERED: BICT1TAB PO ×2 (09:27→14:08)
--- NOTE | 2025-04-16 16:56 | DVHPNRES ---
Progress Note Date Seen: Apr 16, 2025 Resident Creating Document: NGA QUILES RESIDENT Medical Necessity Reason Pt with a Central, PICC or Fol: No Subjective Review of Systems Mr. Prasanth Ashraf is a 64-year-old male with HIV and past history of polysubstance abuse, gastritis and duodenal diverticulum who presented to the ER with the chief complaint of pain and swelling in his left leg. The patient mentions that he has had pain and swelling of the left leg since 2 weeks which has progressively increased along with redness. The patient states that the leg pain is 10/10 in intensity and continuous. The intensity of the pain is such that the patient is not able to ambulate, which he was able to do before his leg pain and swelling started. He has a history of blood clots in the left leg in 2003 for which he wears compression stocking in his left leg. The patient went to his primary care provider at [facility] who asked him to go to the ED for further evaluation. On evaluation, patient also complains of increased urinary frequency and increased thirst since the last couple of months. CT angiogram of the left lower extremity was ordered. Past medical history: HIV, polysubstance abuse, gastritis, duodenal diverticulum Past surgical history: denies Home medications: Biktarvy, bactrim Social & Personal history: lives alone at home, uses marijuana, denies alcohol use and smoking Allergies: no known allergies Patient seen and examined at bedside. Patient is alert and oriented to time, place person and responding to all questions. Patient is in distress because of the pain in his left leg. Eyes: No Pain, No Vision change, No Conjunctivae inflammation, No Eyelid inflammation, No Redness ENT: No Ear pain, No Ear discharge, No Nose pain, No Nose discharge, No Nose congestion, No Mouth pain, No Mouth swelling, No Throat pain, No Throat swelling Cardiovascular: No Chest Pain, No Palpitations, No Orthopnea, No Paroxysmal No Dyspnea, No Edema, No Lt Headedness Respiratory: No Cough, No Dry, No Shortness of breath, No SOB with exertion, No Wheezing, No Hemoptysis, No Pleuritic Pain, No Sputum Gastrointestinal: No Nausea, No Vomiting, No Abdominal Pain, No Diarrhea, No Constipation, No Melena, No Hematochezia Genitourinary: No Dysuria, urinary Frequency, No Incontinence, No Hematuria, No Retention 9/11- The patient was seen at bedside today. His white count today was 2.7 and hemoglobin 9.4. His antibiotics were changed to vancomycin and cefepime. CT angiography of the lower extremities showed early opacification of left lower extremity veins with moderate subcutaneous edema. Urinalysis done yesterday was positive for UTI. On evaluation today, the patient complained of pain in his left leg and was given norco for the same. 04/11- The patient was seen at bedside today. His white count today was 2.3 and hemoglobin 9.5. We continued with the same management. Patient complained of multiple bowel movements so stool sample was sent for C diff. Patient mentioned that the pain in his left leg has reduced. Consulted with sr. social media & mobile manager to arrange Biktarvy by contacting the insurance. 04/12-Patient reported diarrhea so many times could not give exact number. Ordered stool for occult blood test, stool for ova and parasite, stool for WBC, stool culture. 04/13- patient was seen at bedside today. White count today was 3.7. Stool occult blood was positive. Culture was negative for C diff, Shiga toxin and Campylobacter. PT evaluation was done and the patient was recommended SNF for placement post discharge for PT. The patient still complained of diarrhea and loss of bowel and bladder control. 04/14- The patient was seen at bedside today. White count today was 3.7. [facility] was contacted to arrange Biktarvy for the patient on discharge tomorrow. Possible discharge for tomorrow was discussed with the patient and the patient stated that he will not leave the hospital without getting Biktarvy. Patient is okay with being discharged to a SNF. 04/15- the patient was seen at bedside today. His white count today was 3.7. Ongoing discussion with the pharmacy to arrange Biktarvy for the patient on discharge to the SNF. Patient was started on oral doxycycline and IV doxycycline was discontinued. 04/16- patient was seen at bedside today. White count today was 2.6. . Biktarvy was ordered from the [facility] and will be delivered to the hospital tomorrow. Planning for placement of the patient in a SNF was started with the sr. social media & mobile manager. Objective vital signs Vital Sign Date Time Temp Pulse Resp B/P (MAP) Pulse Ox O2 Delivery O2 Flow Rate FiO2 04/16/25 12:43 97.5 86 18 95/57 (70) 97 97.5 04/16/25 08:00 Room Air* 0 21 Total Intake and Output 04/15/25 04/15/25 04/16/25 15:00 23:00 07:00 Intake Total 1100 ml 200 ml Output Total 500 ml Balance 1100 ml -300 ml medications Current Medications Medications Dose Ordered Sig/Farzad Route Start Time Stop Time Status Last Admin Dose Admin Ondansetron HCl 4 mg Q4HP PRN IV 04/08/25 23:45 Morphine Sulfate 1 mg Q4HP PRN IV 04/09/25 14:45 04/11/25 08:11 1 MG Acetaminophen/ Hydrocodone Bitart 1 tab Q4HPRN PRN PO 04/09/25 14:45 04/16/25 03:30 1 TAB Acetaminophen 650 mg Q6HP PRN PO 04/09/25 14:45 Pantoprazole Sodium 40 mg DAILY@0600 PO 04/10/25 06:00 04/16/25 06:10 40 MG Ceftriaxone Sodium 50 ml @ 100 mls/hr DAILY@09 IV 04/12/25 11:31 04/15/25 09:43 100 MLS/HR Doxycycline Monohydrate 100 mg Q12HR PO 04/15/25 22:00 04/16/25 11:28 100 MG Examination General Appearance: Cooperative. Well developed. Well nourished. NAD Head Exam: Normal inspection Neck Exam: Normal inspection. Non-tender. Normal alignment Pulmonary/Respiratory: Chest non-tender. Clear bilateral breath sounds, no crackles, no wheezing. Cardiovascular/Chest: Regular rate and rhythm. No murmurs. No JVD. Peripheral Pulses: 2+ Radial (R). 2+ Radial (L). 2+ Pedal (R). 2+ Pedal (L) Abdominal Exam: Normal bowel sounds. Soft. normal abdomen, no visible veins, Nontender. No hepatospenomegaly. No masses Lower extremities: 2+ edema in left leg with erythema and scaling of skin, Lt Lower leg noted with edema,erythema with dry skin. 0.8x0.8cm dry intact scab noted to his L 2nd toe. 1.5x7cm intact, reddened, blistered noted on his proximal vega compression stocking liane around the left calf [id number] Neuro/Mental Status: A&O x4. Coherent. Thoughts/Psych: Normal thought pattern. Appropriate mood and affect. Good judgement and insight Skin Exam: Normal inspection. Normal color. Warm. Dry, tightness and swelling left leg laboratory and microbiology laboratory and microbiology Laboratory Tests 04/16/25 06:39 Test 04/16/25 06:39 Range/Units Serum Glucose 86 74-106 mg/dL Microbiology Date/Time Source Procedure Growth Status 04/13/25 04:00 Stool Stool Culture - Final Complete 04/13/25 04:00 Stool Shiga Toxin I & II - Final Complete 04/09/25 21:05 Voided Urine Urine Culture - Final Complete 04/09/25 07:56 Nose MRSA Screen - Final Complete Labs and/or images reviewed: Labs reviewed by me, Image(s) reviewed by me Problem List/Assessment/Plan Problem List/Assessment/Plan Probable sepsis, likely from cellulitis Acute left lower extremity cellulitis - IV fluids - vancomycin and cefepime - monitor labs - wound consult Bicytopenia, leukopenia and normocytic anemia precipitous hemoglobin drop HIV - last CD4 count was 200 - resume Biktarvy Acute complicated UTI - urine culture - IV antibiotics same as above - IV fluids Hypocalcemia, asymptomatic - Follow labs History of distal esophageal stricture and colonic diverticulum - patient follow-up with PCP post discharge Diarrhea with rectal bleed,? CMV colitis -SOB positive Medication noncompliance History of suicidal / homicidal ideation - assess for psych evaluation if needed Hyponatremia, resolved - follow labs History of gastritis - start PPIs PUD prophylaxis: Protonix DVT prophylaxis: Lovenox Goals of care: Full code, discussed for >23 minutes Plan discussed with patient Plan discussed with Dr Mohr Plan discussed with: Patient My Orders My Orders Orders - NGA QUILES RESIDENT Procedure Category Date Status Time Discharge DISCHARGE 04/16/25 Transmitted 14:22 Dietary Evaluation Review Comments: Encourage PO intakes to meet his needs Offer Ensure HP pO 240ml TID Expected Outcomes/Goals: gradual wt gain Date of Service: Apr 16, 2025 Billing Provider: CLAIRE MOHR MD Common Visit Codes: [id number] INP/OBS CARE(MOD) NGA QUILES RESIDENT Apr 16, 2025 16:56 CLAIRE MOHR MD Apr 24, 2025 20:57
[2025-04-17 05:00] VITALS: BP 104/67; PULSE 92; RESP 18; TEMP 98.1; O2SAT 100
[2025-04-17 06:36] LABS: Anion Gap 8 (5-15); Carbon Dioxide 27 mmol/L (20-31); Chloride 102 mmol/L (98-107); Potassium 4.6 mmol/L (3.5-5.1); Sodium 137 mmol/L (136-145)
[2025-04-17 06:38] LABS: Calcium 8.5 mg/dL (8.7-10.4)
[2025-04-17 06:42] LABS: BUN/Creatinine Ratio 18.6 (10.0-20.0); Blood Urea Nitrogen 19 mg/dL (9-23)
[2025-04-17 06:50] LABS: Glucose 107 mg/dL (74-106)
[2025-04-17 06:54] LABS: Hematocrit 28.6 % (41.0-53.0); Hemoglobin 9.6 g/dL (13.5-17.5); Mean Corpuscular Hemoglobin 29.0 pg (28.0-32.0); Mean Corpuscular Volume 86.5 fL (80.0-100.0); Nucleated Red Blood Cells % 0.2 %
[2025-04-17 08:00] VITALS: O2SAT 98
[2025-04-17 09:00] VITALS: BP 126/86; PULSE 99; RESP 20; TEMP 97.6; O2SAT 99
[2025-04-17 11:52] VITALS: BP 126/86; PULSE 99; RESP 20; TEMP 36.4; O2SAT 99
[2025-04-17 13:00] VITALS: BP 109/77; PULSE 94; RESP 20; TEMP 98.1; O2SAT 100
[2025-04-17] MEDS: PNEUMOCOCCAL VACC POLYS 25 MCG/0.5 ML VIAL IM ONE (15:59)
--- NOTE | 2025-04-17 18:54 | DVHDSRES ---
Discharge Summary Date of Admission Resident Creating Document: NGA QUILES RESIDENT Apr 08, 2025 at 23:44 Date of Discharge: Apr 17, 2025 Admitting Diagnosis sepsis Labs/Diagnostic Data: Laboratory Results Test 04/17/25 06:00 04/13/25 06:37 04/13/25 04:00 04/11/25 00:55 White Blood Count 2.3 10^3/uL (4.4-10.8) Red Blood Count 3.30 10^6/uL (4.5-5.90) Hemoglobin 9.6 g/dL (13.5-17.5) Hematocrit 28.6 % (41.0-53.0) Mean Corpuscular Volume 86.5 fL (80.0-100.0) Mean Corpuscular Hemoglobin 29.0 pg (28.0-32.0) Mean Corpuscular Hemoglobin Concent 33.5 g/dL (32.0-36.0) Red Cell Distribution Width 16.4 % (11.8-14.3) Platelet Count 295 10^3/uL (140-450) Mean Platelet Volume 7.6 fL (6.9-10.8) Neutrophils (%) (Auto) 42.7 % (37.0-80.0) Lymphocytes (%) (Auto) 36.7 % (10.0-50.0) Monocytes (%) (Auto) 11.7 % (0.0-12.0) Eosinophils (%) (Auto) 8.1 % (0.0-7.0) Basophils (%) (Auto) 0.8 % (0.0-2.0) Neutrophils # (Auto) 1.0 10 ^3/uL (1.6-8.6) Lymphocytes # (Auto) 0.8 10 ^3/uL (0.4-5.4) Monocytes # (Auto) 0.3 10 ^3/uL (0-1.3) Eosinophils # (Auto) 0.2 10 ^3/uL (0-0.8) Basophils # (Auto) 0 10 ^3/uL (0-0.2) Nucleated Red Blood Cells 0.2 % Sodium Level 137 mmol/L (136-145) Potassium Level 4.6 mmol/L (3.5-5.1) Chloride Level 102 mmol/L (98-107) Carbon Dioxide Level 27 mmol/L (20-31) Anion Gap 8 (5-15) Blood Urea Nitrogen 19 mg/dL (9-23) Creatinine 1.02 mg/dL (0.700-1.30) Glomerular Filtration Rate Calc 83 mL/min (>90) BUN/Creatinine Ratio 18.6 (10.0-20.0) Serum Glucose 107 mg/dL (74-106) Calcium Level 8.5 mg/dL (8.7-10.4) Magnesium Level 1.8 mg/dL (1.6-2.6) Total Bilirubin 0.2 mg/dL (0.2-1.0) Aspartate Amino Transferase (AST) 32 U/L (13-40) Alanine Aminotransferase (ALT) 18 U/L (7-40) Alkaline Phosphatase 75 U/L (46-116) Total Protein 8.9 g/dL (5.7-8.2) Albumin 3.1 g/dL (3.2-4.8) Stool Occult Blood Positive (Negative) Stool Occult Blood Sample #3 (Negative) Stool for White Cells None seen Differential Total Cells Counted 100.0 (100) Neutrophils % (Manual) 34 (37.0-80.0) Band Neutrophils % (Manual) 3 Lymphocytes % (Manual) 40 (10.0-50.0) Monocytes % (Manual) 9 (0-12) Eosinophils % (Manual) 12 (0-7) Basophils % (Manual) 0 (0.0-2.0) Metamyelocytes % (manual) 0 Myelocytes % (Manual) 0 Promyelocytes % (Manual) 0 Blast Cells % (Manual) 0 Reactive Lymphocytes 2 Platelet Estimate Adequate Vancomycin Level Trough 11.7 ug/mL (5-10) Test 04/09/25 12:14 04/09/25 10:15 04/09/25 03:30 04/09/25 00:42 Urine Color Yellow (Yellow) Urine Clarity Turbid (Clear) Urine pH 6.0 (5.0-9.0) Urine Specific [place] 1.017 (1.001-1.035) Urine Protein 1+ (Negative) Urine Ketones Negative (Negative) Urine Blood 1+ /uL (Negative) Urine Nitrite Negative (Negative) Urine Bilirubin Negative (Negative) Urine Urobilinogen Normal mg/dL (Negative) Urine Leukocyte Esterase 3+ /uL (Negative) Urine RBC 5 /hpf (0 - 3) Urine Microscopic WBC 110 /HPF (0-3) Urine Squamous Epithelial Cells Few /hpf (<5) Urine Bacteria Few /hpf (None Seen) Urine Hyaline Casts Many /lpf (0 - 2) Urine Granular Casts Few /lpf (0) Urine Mucus Few (None Seen) Urine Glucose Normal mg/dL (Normal) B-Type Natriuretic Peptide 27.87 pg/mL (0-100) Hepatitis B Surface Antigen Negative (Negative) Hepatitis C Antibody Negative (Negative) Influenza Type A Antigen Negative (Negative) Influenza Type B Antigen Negative (Negative) SARS-CoV-2 Antigen (Rapid) Negative (NEGATIVE) Lactic Acid Level 1.9 mmol/L (0.4-2.0) Test 04/08/25 15:40 Troponin I High Sensitivity 8 ng/L (</=54) Other Laboratory Tests 04/17/25 06:00 Brief Hx & Hospital Course: Mr. Prasanth Ashraf is a 64-year-old male with HIV and past history of polysubstance abuse, gastritis and duodenal diverticulum who presented to the ER with the chief complaint of pain and swelling in his left leg. The patient mentions that he has had pain and swelling of the left leg since 2 weeks which has progressively increased along with redness. The patient states that the leg pain is 10/10 in intensity and continuous. The intensity of the pain is such that the patient is not able to ambulate, which he was able to do before his leg pain and swelling started. He has a history of blood clots in the left leg in 2003 for which he wears compression stocking in his left leg. The patient went to his primary care provider at [facility] who asked him to go to the ED for further evaluation. On evaluation, patient also complains of increased urinary frequency and increased thirst since the last couple of months. CT angiogram of the left lower extremity was ordered. Over the course of his hospital stay, white count and hemoglobin continued to be low. Urinalysis done on 04/10 was positive for UTI and he was started on antibiotics for the same. Patient also complained of multiple bowel movements with specks of blood in it. C diff, she got toxin and Campylobacter was sent which was negative. Patient mentions he had reduced bowel and bladder control. Stool occult blood was positive. Patient started working with physical therapy, and was recommended SNF for placement post discharge for physical therapy. His HIV medication Biktarvy was ordered from the [facility] pharmacy but could not be arranged. For the Biktarvy was ordered from [facility] and was delivered to the hospital before patient was discharged to the SNF. He was discharged on oral doxycycline 5 days and given his Biktarvy for 30 days. He was asked to follow-up outpatient with his PCP and in the [facility]. Past medical history: HIV, polysubstance abuse, gastritis, duodenal diverticulum Past surgical history: denies Home medications: Biktarvy, bactrim Social & Personal history: lives alone at home, uses marijuana, denies alcohol use and smoking General Appearance: Cooperative. Well developed. Well nourished. NAD Head Exam: Normal inspection Neck Exam: Normal inspection. Non-tender. Normal alignment Pulmonary/Respiratory: Chest non-tender. Clear bilateral breath sounds, no crackles, no wheezing. Cardiovascular/Chest: Regular rate and rhythm. No murmurs. No JVD. Peripheral Pulses: 2+ Radial (R). 2+ Radial (L). 2+ Pedal (R). 2+ Pedal (L) Abdominal Exam: Normal bowel sounds. Soft. normal abdomen, no visible veins, Nontender. No hepatospenomegaly. No masses Lower extremities: mild edema in left leg with erythema and scaling of skin, Lt Lower leg noted with slight edema,erythema with dry skin Neuro/Mental Status: A&O x4. Coherent. Thoughts/Psych: Normal thought pattern. Appropriate mood and affect. Good judgement and insight Skin Exam: Normal inspection. Normal color. Warm. Dry, tightness and swelling left leg Operations or Procedures 1.PROCEDURE(s): LLDVT - LT Lower DVT REASON: dvt ORDER NUMBER(s): [id number], ACCESSION NUMBER(s): [id number] Impression: No left femoropopliteal venous thrombosis. Multiple enlarged left inguinal lymph nodes measuring up to 4.3 cm. 2.PROCEDURE(s): CXRP - CHEST PORTABLE REASON: sob ORDER NUMBER(s): [id number], ACCESSION NUMBER(s): [id number] IMPRESSION: Cardiomegaly with pulmonary vascular congestion and bilateral patchy airspace opacities. 3.PROCEDURE(s): CTALE - CT ANGIO LOWER EXTREMITY REASON: ulcer in left leg ORDER NUMBER(s): [id number], ACCESSION NUMBER(s): [id number] IMPRESSION: Patent bilateral arteries of the lower extremity with multivessel run off to each foot. Early opacification of the left lower extremity veins with moderate subcutaneous edema. 4.PROCEDURE(s): ECIDC - ECHO 2D MODE CARDIAC DOP REASON: to rule out structural heart d/s ORDER NUMBER(s): [id number], ACCESSION NUMBER(s): [id number] Conclusion lvef 65% mild lvh normal rv function left atrium enlarged no severe valve abnormaliteis noted Condition at Discharge: Fair Final Diagnosis/Problems List Sepsis because of cellulitis in the setting of HIV Acute left lower extremity cellulitis Bicytopenia, leukopenia and normocytic anemia Symptomatic HIV Acute complicated UTI Hypocalcemia, asymptomatic History of distal esophageal stricture and colonic diverticulum Diarrhea with rectal bleed, possible CMV colitis Medication noncompliance History of suicidal / homicidal ideation Hyponatremia, resolved History of gastritis Discharge Disposition: Alf Facility Discharge Instruct/Medications Diet: Regular Activity: No Restrictions, As Tolerated Follow Up/Referral: follow up with pcp follow up in [facility] Medications: biktarvy once daily for 30 days Scheduled Xzxtklxiwhy-Tpvrqbnqtxxsj-Urla (Biktarvy 50-200-25 mg), 1 TAB PO DAILY Pantoprazole Sodium Sesquihydr (Pantoprazole Sodium), 1 TAB PO BID, (Reported) Polyethylene Glycol 3350 (Miralax), 17 GM PO DAILY, (Reported) Sulfamethoxazole-Trimethoprim (Bactrim), 1 TAB PO DAILY Scheduled PRN Hydrocodone-Acetaminophen (Hydrocodone/Acetaminophen 5-325 mg), 1 TAB PO Q4HP PRN for PAIN SCALE 1 THRU 6, (Reported) Discharge Statement: "Patient was advised to return to the ER or call 911 if any headaches, dizziness, shortness of breath, chest pain, abdominal pain, bleeding, fevers, or worsening of medical condition. Patient was counseled about treatment plan, medications, possible side effects, patientverbalized understanding. All questions were answered to the best of my ability. This discharge took greater then 30 minutes in planning, reviewing documentation, counseling the patient, and discussing with other team members." ASSESSMENT ASSESSMENT Assessment sepsis,likely from celulitis bictyopenia,leukopenia and normocytic anemia acute complicated UTI medication noncompliance Date of Service: Apr 17, 2025 Billing Provider: CLAIRE DUNNE MD Common Visit Codes: 55183-SMK/OBS DISCH DAY >30min NGA QUILES RESIDENT Apr 17, 2025 18:54 CLAIRE DUNNE MD Apr 24, 2025 20:58
== END 2025-04-17 15:50 | DRG 872 ==
LOC: ER 13:39 → OVERFLOW 23:44 → TELE-WESTW 04-09 06:17 → WEST WING 04-10 23:52
PROVIDERS: ADMIT Internal Medicine Geriatric Medicine; ATTEND Internal Medicine Geriatric Medicine
DX: A41.9 Sepsis, unspecified organism (principal); L03.116 Cellulitis of left lower limb; E87.1 Hypo-osmolality and hyponatremia; N39.0 Urinary tract infection, site not specified; K62.5 Hemorrhage of anus and rectum; B25.8 Other cytomegaloviral diseases; Z20.822 Contact with and (suspected) exposure to COVID-19; E83.51 Hypocalcemia; K52.9 Noninfective gastroenteritis and colitis, unspecified; I51.7 Cardiomegaly; D64.9 Anemia, unspecified; R74.01 Elevation of levels of liver transaminase levels; Z91.51 Personal history of suicidal behavior; Z91.148 Patient's other noncompliance with medication regimen for other reason; Z86.718 Personal history of other venous thrombosis and embolism; F12.10 Cannabis abuse, uncomplicated; Z60.2 Problems related to living alone
CPT/HCPCS: 36415; 71045; 73706; 80048; 80053; 80202; 81001; 82270; 82565; 83605; 83735; 83880; 84484; 85007; 85025; 85027; 85048; 86803; 87040; 87045; 87081; 87086; 87177; 87340; 87426; 87427; 87493; 87804; 93306; 93971; 96361; 96365; 96367; 97110; 97116; 97163; 97530; G0378; J3490

== ENCOUNTER 2025-04-30 20:55 | Emergency (ER) | payer MEDICARE ==
[~2025-04-30] VITALS: Ht 193 cm; Wt 88.2 kg
[2025-04-30 21:45] VITALS: PULSE 102; RESP 17; O2SAT 99
--- NOTE | 2025-04-30 21:51 | ED.PDOC ---
Musculoskeletal HPI Comments 64y M who presents to the ED via EMS for chief complaint of extremity pain. Pt presents from post acute care facility for noted deformity on R wrist which pt states was told is a fracture of the R wrist from Aug 2024 and L leg pain and swelling. Pt states he had x-ray at acute care facility yesterday. Pt now in the ED, otherwise denies any recent fall or injury. Pt states he is currently on IV antibiotics for his L foot which has noted cellulitis and in the ED has noted redness and swelling. Pt states he is on pain medications for both but states it is not helping. Pt otherwise denies any other symptoms. 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 Allergies: Coded Allergies: NO KNOWN ALLERGIES (Unverified , 02/21/22) Home Meds Active Scripts Cgpstgzicgv-Godqrkfmnkmxx-Lorw (Biktarvy 50-200-25 mg) 1 Tab Tab, 1 TAB PO DAILY for 30 Days, #30 TAB Prov:JAMEL MARS RESIDENT 04/16/25 Sulfamethoxazole-Trimethoprim (Bactrim) 1 Tab Tab, 1 TAB PO DAILY, #30 TAB Prov:CHEY QUESADA MD 04/02/24 Reported Medications Hydrocodone-Acetaminophen (Hydrocodone/Acetaminophen 5-325 mg) 1 Tab Tab, 1 TAB PO Q4HP PRN for PAIN SCALE 1 THRU 6, TAB 03/27/24 Polyethylene Glycol 3350 (Miralax) 17 Gm Pow, 17 GM PO DAILY, POW 03/27/24 Pantoprazole Sodium Sesquihydr (Pantoprazole Sodium) 40 Mg Tab, 1 TAB PO BID 03/27/24 Information Source: Patient, Emergency Med Personnel Mode of Arrival: EMS Brought in by: EMS Location: Left Extremity Location: Foot Timing: Days Past Medical History PAST MEDICAL HISTORY: HIV Surgical History: Denies all surgeries Family History Family History: Reviewed,noncontributory to illness Social History Smoker: Non-Smoker Alcohol: Denies ETOH Use Drugs: Denies Drug Use Lives In: Home Constitutional: denies: chills, diaphoresis, fatigue, fever, malaise, sweats, weakness, others EENTM: denies: blurred vision, double vision, ear bleeding, ear discharge, ear drainage, ear pain, ear ringing, eye pain, eye redness, hearing loss, mouth pain, mouth swelling, nasal discharge, nose bleeding, nose congestion, nose pain, photophobia, tearing, throat pain, throat swelling, voice changes, others Respiratory: denies: cough, hemoptysis, orthopnea, SOB at rest, shortness of breath, SOB with excertion, stridor, wheezing, others Cardiovascular: denies: chest pain, dizzy spells, diaphoresis, Dyspnea on exertion, edema, irregular heart beat, left arm pain, lightheadedness, palpitations, PND, syncope, others Gastrointestinal: denies: abdomen distended, abdominal pain, blood streaked bowels, constipated, diarrhea, dysphagia, difficulty swallowing, hematemesis, melena, nausea, poor appetite, poor fluid intake, rectal bleeding, rectal pain, vomiting, others Genitourinary: denies: burning, dysuria, flank pain, frequency, hematuria, incontinence, penile discharge, penile sore, pain, testicle pain, testicle swelling, urgency, others Neurological: denies: dizziness, fainting, headache, left sided numbness, left sided weakness, numbness, paresthesia, pre-existing deficit, right sided numbness, right sided weakness, seizure, speech problems, tingling, tremors, weakness, others Musculoskeletal: reports: joint swelling (R wrist); denies: back pain, gout, joint pain, muscle pain, muscle stiffness, neck pain, others Integumetry: reports: change in color (L leg); denies: bruises, change in hair/nails, dryness, laceration, lesions, lumps, rash, wounds, others Allergic/Immunocompromised: denies: Difficulty Healing, Frequent Infections, Hives, Itching, others Hematologic/Lymphatic: denies: anemia, blood clots, easy bleeding, easy bruising, swollen glands, others Endocrine: denies: excessive hunger, excessive sweating, excessive thirst, excessive urination, flushing, intolerance to cold, intolerance to heat, unexplained weight gain, unexplained weight loss, others Psychiatric: denies: anxiety, bipolar disorder, depression, hopeless, panic dis order, schizophrenia, sleepless, suicidal, others All Other Systems: Reviewed and Negative Physical Exam General Appearance: No Apparent Distress, Normal HEENT: Normal ENT Inspection, Pharynx Normal, TMs Normal Neck: Full Range of Motion, Non-Tender, Normal, Normal Inspection Respiratory: Chest Non-Tender, Lungs Clear, No Accessory Muscle Use, No Respiratory Distress, Normal Breath Sounds Cardiovascular: No Edema, No JVD, No Murmur, No Gallop, Normal Peripheral Pulses, Regular Rate/Rhythm Breast Exam: Deferred Gastrointestinal: No Organomegaly, Non Tender, No Pulsatile Mass, Normal Bowel Sounds, Soft Genitalia: Deferred Pelvic: Deferred Rectal: Deferred Extremities: Swelling (LLE tenderness and swelling noted) Musculoskeletal : Apperance: Normal 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 Was a procedure done?: No Differential Diagnosis EXT Differential Diagnosis: Cellulitis, Deep Vein Thrombosis, Sprain, Contusion, Strain, Rheumatoid, Septic, Arthritis X-Ray, Labs, Meds, VS Vital Signs Date Time Temp Pulse Resp B/P (MAP) Pulse Ox O2 Delivery O2 Flow Rate FiO2 04/30/25 21:45 102 17 99 Room Air* 0 21 04/30/25 21:45 98.7 102 17 118/77 (91) 99 98.7 04/30/25 21:06 98.6 112 16 122/80 97 98.6 Lab Test 04/30/25 21:46 Range/Units White Blood Count 5.2 4.4-10.8 10^3/uL Red Blood Count 3.02 L 4.5-5.90 10^6/uL Hemoglobin 9.2 L 13.5-17.5 g/dL Hematocrit 27.3 L 41.0-53.0 % Mean Corpuscular Volume 90.4 80.0-100.0 fL Mean Corpuscular Hemoglobin 30.4 28.0-32.0 pg Mean Corpuscular Hemoglobin Concent 33.7 32.0-36.0 g/dL Red Cell Distribution Width 17.4 H 11.8-14.3 % Platelet Count 248 140-450 10^3/uL Mean Platelet Volume 7.6 6.9-10.8 fL Neutrophils (%) (Auto) 37.0-80.0 % Lymphocytes (%) (Auto) 10.0-50.0 % Monocytes (%) (Auto) 0.0-12.0 % Eosinophils (%) (Auto) 0.0-7.0 % Basophils (%) (Auto) 0.0-2.0 % Neutrophils # (Auto) 1.6-8.6 10 ^3/uL Lymphocytes # (Auto) 0.4-5.4 10 ^3/uL Monocytes # (Auto) 0-1.3 10 ^3/uL Differential Total Cells Counted 100.0 100 Neutrophils % (Manual) 49 37.0-80.0 Band Neutrophils % (Manual) 2 Lymphocytes % (Manual) 19 10.0-50.0 Monocytes % (Manual) 14 H 0-12 Eosinophils % (Manual) 16 H 0-7 Basophils % (Manual) 0 0.0-2.0 Metamyelocytes % (manual) 0 Myelocytes % (Manual) 0 Promyelocytes % (Manual) 0 Blast Cells % (Manual) 0 Reactive Lymphocytes 0 Platelet Estimate Adequate Anisocytosis (manual) Slight Sodium Level 139 136-145 mmol/L Potassium Level 4.1 3.5-5.1 mmol/L Chloride Level 105 98-107 mmol/L Carbon Dioxide Level 25 20-31 mmol/L Anion Gap 9 5-15 Blood Urea Nitrogen 11 9-23 mg/dL Creatinine 1.22 0.700-1.30 mg/dL Glomerular Filtration Rate Calc 67 >90 mL/min BUN/Creatinine Ratio 9.0 L 10.0-20.0 Serum Glucose 96 74-106 mg/dL Lactic Acid Level 1.0 0.4-2.0 mmol/L Calcium Level 8.7 8.7-10.4 mg/dL Current Medications Medications (Trade) Dose Ordered Sig/Farzad Route Start Time Stop Time Status Last Admin Acetaminophen/ Hydrocodone Bitart ([place] 5/325MG Tab) 1 tab ONCE ONCE PO 04/30/25 21:45 04/30/25 21:46 DC 04/30/25 21:54 X-Ray, Labs, Meds, VS Comment Imaging was reviewed by this provider, there is no obvious pathological or acute disease process. Pending radiology review Labs were reviewed by this provider, no abnormalities Vital signs reviewed by this provider, clinically stable Time of 1ST Reevaluation: 22:15 Reevaluation 1ST: Unchanged Patient Education/Counseling: Diagnosis, Treatment, Need For Follow Up (Follow up with PCP next available appointment) Family Education/Counseling: No Family Present Sepsis Sepsis Reasesment Focused Exam Orders: Laboratory Tests 04/30/25 21:46: Lactic Acid Level 1.0 Departure 1 Departure Time of Disposition: 23:20 Impression: Primary Impression: Left leg cellulitis Additional Impressions: Noncompliance with medication regimen Generalized weakness Disposition: HOME / SELF CARE / HOMELESS Condition: Stable Discharged With: Self Critical Care Note Critical Care Time?: No Stability Stability form required: No Heart Score Heart Score: Heart Score Response (Comments) Value History N/A 0 EKG N/A 0 Age N/A 0 Risk Factors N/A 0 Troponin N/A 0 Total 0 I personally scribed for CÉSAR PICKARDP ([email or web address]) on 04/30/25 at 21:51. Electronically submitted by Francisca Zepeda ([email or web address]). I personally scribed for CÉSAR PICKARD NURSING PROGRAM COORDINATOR ([email or web address]) on 04/30/25 at 22:13. Electronically submitted by Francisca ESPINOSA). CÉSAR PICKARD Apr 30, 2025 21:51
[2025-04-30] MEDS: HYDROcodone-ACET 5/325MG TAB PO ONE (21:54)
[2025-04-30 22:13] LABS: Hematocrit 27.3 % (41.0-53.0); Hemoglobin 9.2 g/dL (13.5-17.5); Mean Corpuscular Hemoglobin 30.4 pg (28.0-32.0); Mean Corpuscular Volume 90.4 fL (80.0-100.0)
[2025-04-30 22:26] LABS: Chloride 105 mmol/L (98-107); Potassium 4.1 mmol/L (3.5-5.1); Sodium 139 mmol/L (136-145)
[2025-04-30 22:27] LABS: Anion Gap 9 (5-15); Calcium 8.7 mg/dL (8.7-10.4); Carbon Dioxide 25 mmol/L (20-31)
[2025-04-30 22:32] LABS: BUN/Creatinine Ratio 9.0 (10.0-20.0); Blood Urea Nitrogen 11 mg/dL (9-23); Glucose 96 mg/dL (74-106)
[2025-04-30 22:45] LABS: Total Cells Counted 100.0 (100)
[2025-04-30 22:47] LABS: Anisocytosis Slight
--- NOTE | 2025-04-30 22:47 | DVH ---
EXAM: XY R WRIST 3+ VIEW XRAY HISTORY: pain COMPARISON: XY R WRIST 3+ VIEW XRAY on DOS: 09/22/24 TECHNIQUE: 3 views of the right wrist were performed. FINDINGS/IMPRESSION: There is an acute mildly impacted fracture of the distal radius. There is overlying soft tissue swell ing.
[2025-05-01] MEDS: HYDROcodone-ACET 5/325MG TAB PO ONE ×2 (00:22→10:08)
[2025-05-01 11:39] VITALS: BP 116/68; PULSE 88; RESP 18; TEMP 98.8; O2SAT 97
== END 2025-05-01 11:41 ==
LOC: ER 20:55 → EDBD 20:55 → ER 05-01 11:41
DX: L03.115 Cellulitis of right lower limb (principal); R53.1 Weakness; Z79.899 Other long term (current) drug therapy; Z79.624 Long term (current) use of inhibitors of nucleotide synthesis; Z91.148 Patient's other noncompliance with medication regimen for other reason
CPT/HCPCS: 36415; 73110; 80048; 83605; 85007; 85027